=== PATIENT | female | born 1980 | race Caucasian/White ===

== ENCOUNTER 2021-08-30 14:23 | Outpatient (REF) | payer MEDICAID, SELFPAY ==
--- NOTE | ~2021-08-30 | FL_ITS ---
EXAMINATION: XR BARIUM SWALLOW CLINICAL INFORMATION: Iron deficiency. COMPARISON: None TECHNIQUE: Fluoroscopic guidance was provided for modified barium swallow performed by the speech and hearing department. FINDINGS: There is question of trace aspiration with thin liquid barium. This could not be reproduced. No aspiration or penetration was seen with any other media. FLUOROSCOPY TIME: 2.9 minutes DAP: 2.5 Gy-m2 (microgray-meter squared) FL/FL barium swallow modified IMPRESSION: Question trace aspiration with thin liquid barium. This could not be reproduced. No aspiration or penetration seen with any other media.
--- NOTE | 2021-09-01 09:23 | MHC.SL.IMP ---
Date of Plan of Treatment: 08/30/21 Onset of Symptoms/Illness: 07/07/21 Date Treatment Started: 08/30/21 Admitting Diagnosis: 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 Anxiety disorder Major depressive disorder Spastic hemiplegia affecting right dominant side Opioid use Cocaine abuse Presence of other vascular implants and grafts Constipation Insomnia Nausea Zygomatic fracture, left side Fracture of other specified skull and facial bones Dysphagia, oropharyngeal phase Dysarthria and anarthria Iron deficiency anemia Vitamin B deficiency Vitamin D deficiency Epidural hemorrhage Personal hx of COVID19 Retention of urine Contracture right hand Primary osteoarthritis, right shoulder Primary Speech & Language Diagnosis: R13.12 Oropharyngeal Phase Dysphagia Reason for Today's Visit: 81925 Modified Barium Swallow Study Pre-evaluation Dietary Consistencies: Regular Pre-evaluation Liquid Consistency: Honey Thick Pre-evaluation Medication Administration: N/A Medical History: Comments: Modified Barium Swallow Study Fluoroscopic Evaluation of Swallowing Function CPT Code 20071 Evaluation Year: 2021 Reason for Study: History of aspiration Referring Physician: Javi Shay DO Evaluating Clinician: Amelie Morales MA, CCC-HOSPITALITY AIDE Study Number: 1 Patient Name: Ana Whitley Status: Outpatient, Wheelchair Age: 40 Gender: Female MEDICAL HISTORY: Year of Onset or Diagnosis: 2021 Comorbidities: 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 Anxiety disorder Major depressive disorder Spastic hemiplegia affecting right dominant side Opioid use Cocaine abuse Presence of other vascular implants and grafts Constipation Insomnia Nausea Zygomatic fracture, left side Fracture of other specified skull and facial bones Dysphagia, oropharyngeal phase Dysarthria and anarthria Iron deficiency anemia Vitamin B deficiency Vitamin D deficiency Epidural hemorrhage Personal hx of COVID19 Retention of urine Contracture right hand Primary osteoarthritis, right shoulder Current (pre-evaluation) Intake/Diet: Route: PO Diet Grade: ?SOFT AND BITE SIZED (SB6)? Liquid Consistencies: ?MODERATELY THICK (MO3) CONSISTENCY? Pre-Study Functional Oral Intake Scale (FOIS): 5- Total oral intake of multiple consistencies requiring special preparation Pain: None reported at time of study Oral Motor Exam Mouth Occlusion: Normal Oral-Facial Teeth Characteristics: Intact/Normal Tongue Size: Normal Is patient able to manage secretions?: Yes Food and Liquid Trials: Oral Impairment: Lip Closure: 1=Interlabial escape; no progression to anterior tip Oral Impairment: Tongue Control During Bolus Hold: 2=Posterior escape of less than half of bolus Oral Impairment: Bolus Preparation/Mastication: 2=Disorganized chewing/mashing with solid pieces of bolus Oral Impairment: Bolus Transport/Lingual Motion: 3=Repetitive/disorganized tongue motion Oral Impairment: Oral Residue: 2=Residue collection on oral structures Oral Impairment:Initiation of Pharyngeal Swallow: 1=Bolus head in valleculae Pharyngeal Impairment: Soft Palate Elevation: 0=No bolus between soft palate (SP)/pharyngeal wall (PW) Pharyngeal Impairment: Laryngeal Elevation: 1=Partial thyroid cartilage/arytenoids to epiglottic petiole movement Pharyngeal Impairment: Anterior Hyoid Excursion: 1=Partial anterior movement Pharyngeal Impairment: Epiglottic Movement: 0=Complete inversion Pharyngeal Impairment: Laryngeal Vestibular Closure:: 1=Incomplete: narrow column air/contrast in laryngeal vestibule Pharyngeal Impairment: Pharyngeal Stripping Wave: 1=Present: diminished Pharyngeal Impairment: Pharyngeal Contraction: Did not test Pharyngeal Impairment: Pharyngoesophageal Segment Openin=Complete distension and complete duration: no obstruction of flow Pharyngeal Impairment: Tongue Base (TB) Retraction: 2=Narrow column of contrast/air between TB and posterior PW Pharyngeal Impairment: Pharyngeal Residue: 2=Collection of residue within or on pharyngeal structures Pharyngeal Impairment: Esophageal Clearance Upright Position: Did not test Impressions and Recommendations Clinical Observations: OBJECTIVE: Time-out: performed at 03:15 Evaluation Start: 03:00; Stop: 03:05 Patient Positioning: Seated 70-90 degrees Viewing Planes: LATERAL ONLY Contrast: MBSImP? Standardized Protocol using commercially prepared, standardized Barium viscosities, including: Varibar? THIN LIQUID (40% w/v, <15 cps) , Varibar? NECTAR (40% w/v, <150-450 cps) , Varibar? THIN HONEY (40% w/v, <800-1800 cps) , 1/2 Shortbread Cookie (1 x1 x.25 ) MBSImP ID: [id number] MBSImP Results: Lip closure for intraoral bolus containment resulted in interlabial escape, without progression to the anterior lip. Tongue control during bolus hold resulted in posterior escape of less than half of the bolus. Bolus preparation and mastication demonstrated disorganized chewing/mashing with solid pieces of the bolus unchewed. Bolus transport/lingual motion was with repetitive/disorganized motion of the tongue. Oral residue was a collection on oral structures. Initiation of the pharyngeal swallow occurred when the bolus head was in the valleculae. Soft palate elevation resulted in no bolus between the soft palate and the pharyngeal wall. Laryngeal elevation was decreased, with partial superior movement of the thyroid cartilage/partial approximation of the arytenoids to the epiglottic petiole. Anterior hyoid excursion demonstrated partial anterior movement. Epiglottic movement resulted in complete inversion. Laryngeal vestibular closure was incomplete, with a narrow column of air/contrast noted within the laryngeal vestibule at the height of the swallow. Pharyngeal stripping wave was present, but diminished. Pharyngeal contraction could not be determined due to logistical reasons not related to physiologic impairment. Pharyngoesophageal segment opening was completely distended for complete duration with no obstruction of bolus flow. Tongue base retraction allowed a narrow column of contrast or air between the retracted tongue base and the posterior pharyngeal wall. Pharyngeal residue was a collection of residue within or on pharyngeal structures. Esophageal clearance in the upright position could not be assessed due to logistical reasons not related to physiologic impairment. Oral Impairment Score: 10 Pharyngeal Impairment Score: 8 (absence of score, component 13) Esophageal Impairment Score: --- (absence of score, component 17) Laryngeal Penetration and Aspiration: Aspiration was observed in today's study. Incomplete laryngeal vestibular closure with noted aspiration of trace amount thin liquid during the swallow, question of aspiration with nectar thick, contrast coating the airway anteriorly. Contast passed below the vocal folds, and no effort was made to eject. ASSESSMENT: Clinician Assessment: This exam was conducted by a multidisciplinary team, which included a speech pathologist, radiologist, and electronic systems technician. Patient was seated upright in a chair for lateral view only. Patient trialed the following liquid and solid consistencies: thin liquid barium, nectar thick liquid barium, honey thick liquid barium, pureed solid (mixture applesauce with barium paste), ground solid (mixture chicken salad with barium paste), regular solid (Eugenia Doone cookie coated with barium paste). Moderately delayed and discoordinated oral phase. Noted interlabial escape of bolus with no progression anteriorly. Posterior escape of bolus as well. Contrast collected on tongue base and in the valleculae prior to initiation of the pharyngeal swallow. Slow prolonged chewing of ground solid. When given solid cookie, patient broke up the small piece given to her, spitting out the other half. Note disorganized anterior chewing pattern. Piece meal deglutition, as patient chewed bolus, swallowed partial bolus, chewed remaining bolus, and swallowed again. Patient swallowed up to 4 times per bite to clear oral cavity. Repetitive lingual motion, characterized by slow tongue pumping movements to transport bolus posteriorly. Mild to moderate oral residue on tongue and hard palate. Multiple swallow strategy reduced residue in oral cavity. Also note patient?s maladaptive forward leaning posture when patient appeared to exert increased effort swallowing. No nasopharyngeal reflux. Laryngeal elevation was incomplete, with partial anterior hyoid excursion. Incomplete laryngeal vestibular closure with noted aspiration of trace amount thin liquid during the swallow, question of aspiration with nectar thick, contrast coating the airway anteriorly. Mild pharyngeal residue on tongue base and in the valleculae, which effectively cleared with subsequent dry swallow. No obstruction of flow through pharyngoesophageal segment opening. The following compensatory strategies have been used in therapy as well as in today's study and improved swallowing function: Honey-thick Liquid eliminated Aspiration Patient history with the following compensatory strategies is unknown. When employed during today's study, these strategies improved swallowing function: Additional Swallow(s) per Bolus decreased Oral Residue, Pharyngeal Residue Liquid Intake Recommendation: Honey Thick Liquid Intake Strategies: Small Sips, No Straws Dietary Recommendations: Chopped/Advanced (NDD3) Medication Administration: Crushed with Puree Please contact the pharmacy regarding appropriate crushable or liquid drug formulations that are available whenever modified delivery is recommended. Compensatory Strategies Recommended: Sitting Upright (90 deg) Double Swallow No Straw Small Bites and Sips Alternate Liquids/Solids Rate of Ingestion Change Avoid Specific Foods Supervision during eating and or drinking: Total Supervision (1:1) Recommended Treatments: Compens. Strategy Educat. Recommendation for Speech Therapy: Outpatient Speech Therapy Text Comment: PLAN: Intake Recommendations: Route: PO Diet Grade: Chopped/Advanced (NDD3) Liquid Consistencies: Honey Post-Study Functional Oral Intake Scale (FOIS): 5- Total oral intake of multiple consistencies requiring special preparation Recommend CHOPPED/ADVANCED (NDD3) solids with sauces/gravies and HONEY THICK liquids, pills CRUSHED in PUREE. Patient requires total supervision during meals to monitor tolerance, to provide assistance with tray set up and throughout meals as needed; and to provide cues for aspiration precautions: -Ensure small bites -Reminders as needed to take one bite at a time, clearing oral cavity before taking more bites -Chew food well -Moisten food with sauce/gravy as needed -Avoid dry, tough, sticky foods -Alternate bite of food with sip of liquid -Take individual sips -Avoid the use of straws -Upright 90 degree position -Oral care ideally before and after meals, 4 times daily at the least Suggested Referrals: The patient might benefit from a referral to: Nutrition Services Indication for Referral: D/t risk of dehydration when consuming moderately thick liquids, patient may consider Artis Free Water Protocol. Therapy Recommendations: Therapy will be continued Prognosis for Improvement: The prognosis for the patient to meet nutritional needs by mouth is fair based on degree of impairment. Group Home Goals: ? The patient will tolerate the least restrictive diet with a safe/efficient swallow to maintain adequate nutrition and hydration. ? The patient will demonstrate improved swallowing function via repeat clinical evaluation, videoendoscopy/videofluoroscopy and/or patient self-rating scores. ? The patient and/or family will participate in further education for swallowing goals. Short Term Goals: ? Diet - The patient will participate in therapeutic PO trials with the HOSPITALITY AIDE. ? Guidelines - The patient will comply with/recall the following guidelines/strategies 80% of the time with moderate cuing: Honey-thick Liquid, Bolus Volume Change, Rate of Ingestion Change, Additional Swallow(s) per Bolus. ? Education - The patient, family, caregiver will verbalize/demonstrate understanding of the results of this evaluation, the above recommendations, and the swallowing guidelines. Clinician - Supplemental, Miscellaneous Communication: It is important to note MBSS objective studies are snapshots in time and Patient function might vary with factors such as time of day or concomitant medical conditions. For this reason, the final treatment plan for this patient should rest with their medical care team. Additional recommendations should be considered with the totality of the Patient in mind. Thank for the opportunity to participate in the care of this patient. If you have any questions about the content of this report, please contact the [facility] at [facility]. Education: Education regarding findings from today's study and plans for therapy were provided to Patient and family/caregiver through Verbal Instruction, Written Instruction. Understanding was expressed by the Patient and family/caregiver. Cement Storage Worker Clinician/Clinical Fellow: No Supervisory Statement: N/A Speech Language Pathologist: Amelie Morales M.A., [facility]-HOSPITALITY AIDE
== END 2021-08-30 14:24 | disposition home or self-care (01) ==
LOC: HO.XRAY 14:23
PROVIDERS: Visit Provider Hospitalist
DX: R13.12 Dysphagia, oropharyngeal phase (principal); D50.9 Iron deficiency anemia, unspecified
CPT/HCPCS: 74230; 92611

== ENCOUNTER 2021-10-09 11:29 | Emergency (ER) | payer MEDICAID, SELFPAY ==
--- NOTE | ~2021-10-09 | CT_ITS ---
EXAMINATION: CT CHEST WITHOUT CONTRAST CLINICAL INFORMATION: Diffuse rhonchi. Shortness of breath. COMPARISON: Previous chest x-ray most recent from earlier the same day and chest CTA March 2021 TECHNIQUE: Multidetector volumetric CT imaging of the chest was done. Axial MIP volume rendering provided. Sagittal and coronal reformatted images were obtained. This CT examination was performed using dose optimization techniques as appropriate, variously including the following: *Automated exposure control *Adjustment of mA and/or kV according to patient size (this includes techniques or standardized protocols for targeted exams where dose is matched to indication/reason for exam; i.e. extremities or head) *Use of iterative reconstruction technique DLP: 270 mGy-cm FINDINGS: LUNGS: There are clustered peribronchial nodules seen in the right lower lobe at the right lung base suggestive of tree-in-bud appearance or airways disease. There is a 4 mm left lower lobe nodule axial image 35 series 4. This is new from previous chest CT from March 2021. There is a bilateral lower lobe dependent subsegmental atelectasis. The lungs are otherwise clear. MEDIASTINUM: The mediastinum is normal. PLEURA: There is no pleural effusion. No pleural mass or thickening. AXILLA: No lymphadenopathy. UPPER ABDOMEN: There is a 6 cm cyst in the upper pole of the left kidney. The top of the IVC filter is visualized. OSSEOUS STRUCTURES: Unremarkable. CT/CT chest wo con IMPRESSION: Mild airways disease in the right lower lobe. Dependent atelectasis at the lung bases. 4 mm left lower lobe nodule. This is new in the interval from 2020 exam. Fleischner guidelines were followed.
--- NOTE | ~2021-10-09 | XR_ITS ---
EXAMINATION: XR CHEST CLINICAL INFORMATION: Shortness of breath COMPARISON: Previous chest x-ray June 2021 from [facility] TECHNIQUE: Frontal view of the chest was obtained. FINDINGS: The cardiac and mediastinal contours are normal. The lungs are clear. There is no pleural effusion or pneumothorax. Bony structures are unremarkable. There is an IVC filter. XR/XR chest 1V IMPRESSION: No evidence for acute disease in the chest.
--- NOTE | 2021-10-09 11:52 | ECG_ITS ---
Test Reason : ANXIETY/SOB Blood Pressure : / mmHG Vent. Rate : 084 BPM Atrial Rate : 084 BPM P-R Int : 152 ms QRS Dur : 074 ms QT Int : 364 ms P-R-T Axes : 050 046 055 degrees QTc Int : 430 ms Sinus rhythm with occasional Premature ventricular complexes Otherwise normal ECG No previous ECGs available Referred By: Alva Conde Electronically Signed By:MO ATKINSON
--- NOTE | 2021-10-09 12:07 | ED.SOB ---
HPI - SOB/Dyspnea General Chief Complaint: Upper Respiratory Symptoms Stated Complaint: anxiety/sob Time Seen by Provider: 10/09/21 11:41 Source: patient and EMS Mode of arrival: EMS History of Present Illness HPI Narrative: 40-year-old female with a past medical history of traumatic subdural hemorrhage, anxiety, depression, spastic hemiplegia, dysphagia, dysarthria/anarthria, vitamin-B/D deficiency, urinary retention, presenting to ED via EMS from [facility] for reported SOB satting 84-89% on RA and increased anxiety. Patient reports increased anxiety and SOB. Remaining history limited due to patient's dysarthria MD elicited complaint: shortness of breath Related Data Home Medications Medication Instructions Recorded Confirmed acetaminophen 325 mg tablet 650 mg PO Q6H PRN Fever 10/09/21 10/09/21 albuterol sulfate 3 ml inhalation Q12H PRN Shortness 10/09/21 10/09/21 Of Breath amitriptyline 10 mg tablet 2 tab PO BEDTIME 10/09/21 10/09/21 atorvastatin 10 mg tablet 1 tab PO DAILY 10/09/21 10/09/21 baclofen 5 mg tablet 1 tab PO TID 10/09/21 10/09/21 bisacodyl 10 mg rectal suppository [address] DAILY PRN Constipation 10/09/21 10/09/21 chlorhexidine gluconate 0.12 % 15 ml PO MOWEFR 10/09/21 10/09/21 mouthwash cholecalciferol (vitamin D3) 50 50 mcg PO DAILY 10/09/21 10/09/21 mcg (2,000 unit) tablet diazepam 2 mg tablet 0.5 tab PO BID PRN Anxiety 10/09/21 10/09/21 folic acid 1 mg tablet 1 mg PO DAILY 10/09/21 10/09/21 gabapentin 400 mg capsule 2 cap PO TID 10/09/21 10/09/21 lorazepam 1 mg tablet 1 tab PO BID PRN Anxiety 10/09/21 10/09/21 multivitamin 1 tab PO DAILY 10/09/21 10/09/21 oxycodone 5 mg tablet 1 tab PO BID PRN Pain 10/09/21 10/09/21 polyethylene glycol 3350 17 17 g PO BID 10/09/21 10/09/21 gram/dose oral powder (Miralax) quetiapine 100 mg tablet 1 tab PO BEDTIME 10/09/21 10/09/21 quetiapine 50 mg tablet 1 tab PO BEDTIME 10/09/21 10/09/21 sennosides 8.6 mg tablet (senna) 8.6 mg PO DAILY PRN Constipation 10/09/21 10/09/21 sennosides 8.6 mg-docusate sodium 2 tab-cap PO BID 10/09/21 10/09/21 50 mg tablet thiamine HCl (vitamin B1) 100 mg 100 mg PO DAILY 10/09/21 10/09/21 tablet Previous Rx's Medication Instructions Recorded amoxicillin 875 mg-potassium 1 tab PO BID 7 days #14 tabs 10/09/21 clavulanate 125 mg tablet Allergies Allergy/AdvReac Type Severity Reaction Status Date / Time diphenhydramine Allergy Unknown Unknown Verified 10/09/21 11:51 [From Benadryl] NSAIDS (Non-Steroidal Allergy Unknown Verified 10/09/21 11:51 Anti-Inflamma Review of Systems Review of Systems: Cardiovascular: No Chest Pain, + SOB Respiratory: + Cough, No Sputum, +Dyspnea Psych: + Anxiety/Panic Remaining ROS limited secondary to patient's baseline dysarthria Yes all other systems are reviewed and are negative PMFSH Past Medical History Attestation statement: The following information was validated with the patient. Social History Social History Alcohol intake: former Patient Tobacco Use Status: Never used Tobacco Advance Directives: No Advance Directives Information Provided: No Physical Exam Vital Signs: Vital Signs: Last Vital Signs Temp 98.2 F 10/09/21 15:58 Pulse 66 10/09/21 15:58 Resp 18 10/09/21 15:58 BP 152/93 H 10/09/21 15:58 Pulse Ox 95 10/09/21 15:58 O2 Del Method 10/09/21 15:58 BMI result Body Mass Index 24.2 Const: General: no acute distress, alert, awake and anxious Limitations: no limitations HEENT: Head: Yes normal to inspection and Yes atraumatic Ears: hearing grossly normal bilaterally General nose exam: Normal external nose present Face and sinus: Yes normal facial exam Eyes: General: appearance normal, both eyes and all related structures EOM: EOMs intact bilaterally Neck: Neck: Yes normal visual inspection and Yes no meningeal signs Resp: Effort & Inspection: normal respiratory effort and no respiratory distress Auscultation: rhonchi throughout Cardio: Rate: regular rate Heart sounds: S1 normal heart sound present and S2 normal heart sound present GI: Inspection: Yes normal to inspection Palpation (GI): Soft to palpation, nontender, no guarding and not rigid : General: Yes no CVA tenderness Back/Spine/Pelvis: Back: no CVA tenderness Skin: Wounds: no wounds Neuro: General: tone normal and no meningeal signs Extrem: General: Yes normal to inspection Course Course Course Narrative: Patient refused DuoNeb XR chest 1V IMPRESSION: No evidence for acute disease in the chest. > will obtain CT chest for further evaluation -labs unremarkable CT chest wo con MPRESSION: Mild airways disease in the right lower lobe. Dependent atelectasis at the lung bases. 4 mm left lower lobe nodule. This is new in the interval from 2020 exam.? -patient requesting her home dose of oxycodone > this was ordered then patient refused and stated she cannot take p.o. medication. > spoke with Dr. Shay as knows patient well from [facility], patient does take p.o. medications daily at facility. Will give patient dose of IV Zosyn prior to discharge & after discussion will discharge back on Augmentin MDM - SOB/Dyspnea MDM Narrative Medical decision making narrative: 40-year-old female with a past medical history of traumatic subdural hemorrhage, anxiety, depression, spastic hemiplegia, dysphagia, dysarthria/anarthria, vitamin-B/D deficiency, urinary retention, presenting to ED via EMS from [facility] for reported SOB satting 84-89% on RA and increased anxiety. On exam satting 98% on RA, lungs with diffuse rhonchi/coarse lung sounds, no pedal edema, patient anxious during evaluation/tearful. Concern for aspiration pneumonia vs viral illness vs anxiety reaction. Unlikely ACS/PE Low concern for severe sepsis at this time Plan: EKG, labs, CXR, COVID 19/influenza testing, DuoNeb, re-evaluate Medical Records Attestation: I reviewed the patient's medical records. Lab Data Attestation: I reviewed the patient's lab results. Result diagrams: 10/09/21 13:32 10/09/21 13:32 Labs: Lab Results 10/09/21 10/09/21 10/09/21 Range/Units 13:32 13:32 13:32 WBC 7.4 (4.8-10.8) X10*3/uL RBC 4.06 L (4.20-5.50) X10*6/uL Hgb 12.4 (12.0-16.0) g/dl Hct 37.3 (37.0-47.0) % MCV 91.9 (80.0-98.0) fL MCH 30.5 (27.0-33.0) pg MCHC 33.2 (31.0-35.0) g/dl RDW 11.9 (11.0-16.0) % Plt Count 295 (160-400) X10*3/uL MPV 9.5 (9.4-12.3) fL Immature Gran % (Auto) 0.1 (0.0-0.4) % Neut % (Auto) 59.3 (45-73) % Lymph % (Auto) 31.5 (20-40) % [place] % (Auto) 6.5 (2-11) % Eos % (Auto) 2.2 (0-4) % Baso % (Auto) 0.4 (0-2) % Lymph # (Auto) 2.3 (1.2-4.9) X10*3/uL [place] # (Auto) 0.5 (0.1-1.2) X10*3/uL Eos # (Auto) 0.2 (0.0-0.4) X10*3/uL Baso # (Auto) 0.0 (0.0-0.2) X10*3/uL Abs Immat Gran (auto) 0.01 (0.00-0.03) X10*3/uL Absolute Neuts (auto) 4.4 (2.0-8.3) x10*3/uL Absolute Nucleated RBC 0.000 (0.0-0.012) X10*3/uL Nucleated RBC % (auto) 0.0 (0.0-0.2) /100WBC Sodium 138 (135-145) mmol/L Potassium 4.1 (3.3-5.1) mmol/L Chloride 106 (96-108) mmol/L Carbon Dioxide 24 (22-29) mmol/L Anion Gap 12 (12-20) BUN 10 (9-16) mg/dL Creatinine 0.63 (0.5-1.4) mg/dL Estim Creat Clear Calc 98.2 Estimated GFR > 60 Random Glucose 89 (60-115) mg/dL Lactic Acid 1.0 (0.5-2.0) mmol/L Calcium 8.9 (8.4-10.2) mg/dL Magnesium 2.0 (1.6-2.6) mg/dL Total Bilirubin 1.3 H (0.0-1.0) mg/dL Direct Bilirubin 0.4 (0.0-0.5) mg/dL AST 12 (5-31) U/L ALT 13 (0-31) U/L Alkaline Phosphatase 80 (39-117) U/L Troponin I High Sens (<3.5-17.0) ng/L B-Natriuretic Peptide (<100) pg/mL Total Protein 7.1 (6.5-8.0) g/dL Albumin 4.1 (3.5-5.0) g/dL COVID-19 (NADIRA) (Negative) COVID-19 Clin Com Influenza Type A (OLIVIA) (Negative) Influenza Type B (OLIVIA) (Negative) Influenza A & B Note 10/09/21 10/09/21 10/09/21 Range/Units 13:32 13:32 15:21 WBC (4.8-10.8) X10*3/uL RBC (4.20-5.50) X10*6/uL Hgb (12.0-16.0) g/dl Hct (37.0-47.0) % MCV (80.0-98.0) fL MCH (27.0-33.0) pg MCHC (31.0-35.0) g/dl RDW (11.0-16.0) % Plt Count (160-400) X10*3/uL MPV (9.4-12.3) fL Immature Gran % (Auto) (0.0-0.4) % Neut % (Auto) (45-73) % Lymph % (Auto) (20-40) % [place] % (Auto) (2-11) % Eos % (Auto) (0-4) % Baso % (Auto) (0-2) % Lymph # (Auto) (1.2-4.9) X10*3/uL [place] # (Auto) (0.1-1.2) X10*3/uL Eos # (Auto) (0.0-0.4) X10*3/uL Baso # (Auto) (0.0-0.2) X10*3/uL Abs Immat Gran (auto) (0.00-0.03) X10*3/uL Absolute Neuts (auto) (2.0-8.3) x10*3/uL Absolute Nucleated RBC (0.0-0.012) X10*3/uL Nucleated RBC % (auto) (0.0-0.2) /100WBC Sodium (135-145) mmol/L Potassium (3.3-5.1) mmol/L Chloride (96-108) mmol/L Carbon Dioxide (22-29) mmol/L Anion Gap (12-20) BUN (9-16) mg/dL Creatinine (0.5-1.4) mg/dL Estim Creat Clear Calc Estimated GFR Random Glucose (60-115) mg/dL Lactic Acid (0.5-2.0) mmol/L Calcium (8.4-10.2) mg/dL Magnesium (1.6-2.6) mg/dL Total Bilirubin (0.0-1.0) mg/dL Direct Bilirubin (0.0-0.5) mg/dL AST (5-31) U/L ALT (0-31) U/L Alkaline Phosphatase (39-117) U/L Troponin I High Sens < 3.5 (<3.5-17.0) ng/L B-Natriuretic Peptide < 10 (<100) pg/mL Total Protein (6.5-8.0) g/dL Albumin (3.5-5.0) g/dL COVID-19 (NADIRA) (Negative) COVID-19 Clin Com Influenza Type A (OLIVIA) Negative (Negative) Influenza Type B (OLIVIA) Negative (Negative) Influenza A & B Note See Note 10/09/21 Range/Units 15:22 WBC (4.8-10.8) X10*3/uL RBC (4.20-5.50) X10*6/uL Hgb (12.0-16.0) g/dl Hct (37.0-47.0) % MCV (80.0-98.0) fL MCH (27.0-33.0) pg MCHC (31.0-35.0) g/dl RDW (11.0-16.0) % Plt Count (160-400) X10*3/uL MPV (9.4-12.3) fL Immature Gran % (Auto) (0.0-0.4) % Neut % (Auto) (45-73) % Lymph % (Auto) (20-40) % [place] % (Auto) (2-11) % Eos % (Auto) (0-4) % Baso % (Auto) (0-2) % Lymph # (Auto) (1.2-4.9) X10*3/uL [place] # (Auto) (0.1-1.2) X10*3/uL Eos # (Auto) (0.0-0.4) X10*3/uL Baso # (Auto) (0.0-0.2) X10*3/uL Abs Immat Gran (auto) (0.00-0.03) X10*3/uL Absolute Neuts (auto) (2.0-8.3) x10*3/uL Absolute Nucleated RBC (0.0-0.012) X10*3/uL Nucleated RBC % (auto) (0.0-0.2) /100WBC Sodium (135-145) mmol/L Potassium (3.3-5.1) mmol/L Chloride (96-108) mmol/L Carbon Dioxide (22-29) mmol/L Anion Gap (12-20) BUN (9-16) mg/dL Creatinine (0.5-1.4) mg/dL Estim Creat Clear Calc Estimated GFR Random Glucose (60-115) mg/dL Lactic Acid (0.5-2.0) mmol/L Calcium (8.4-10.2) mg/dL Magnesium (1.6-2.6) mg/dL Total Bilirubin (0.0-1.0) mg/dL Direct Bilirubin (0.0-0.5) mg/dL AST (5-31) U/L ALT (0-31) U/L Alkaline Phosphatase (39-117) U/L Troponin I High Sens (<3.5-17.0) ng/L B-Natriuretic Peptide (<100) pg/mL Total Protein (6.5-8.0) g/dL Albumin (3.5-5.0) g/dL COVID-19 (NADIRA) Negative (Negative) COVID-19 Clin Com See Note Influenza Type A (OLIVIA) (Negative) Influenza Type B (OLIVIA) (Negative) Influenza A & B Note ECG Data Attestation: I personally reviewed and interpreted this ECG as follows: ECG interpretation date: 10/09/21 ECG interpretation time: 12:08 Interpretation: EKG sinus rhythm with PVC. Rate of 84. Pr interval 152. QTC 430. No STEMI/nonischemic Discharge Plan Discharge Clinical Impression: Aspiration pneumonia Patient Disposition: Xfer LTC Transfer Details: [facility] Instructions: Pneumonia (ED) Additional Instructions: Your blood work was reassuring today in the emergency department, your CT scan shows evidence of pneumonia and a right lower lobe. Augmentin is an antibiotic please take as prescribed. Your given 1st dose of IV Zosyn in the emergency department. Prescriptions: New amoxicillin-pot clavulanate 875-125 mg tablet 1 tab PO BID 7 Days Qty: 14 0RF No Action multivitamin Tablet 1 tab PO DAILY sennosides [senna] 8.6 mg Tablet 8.6 mg PO DAILY PRN (Reason: Constipation) acetaminophen 325 mg Tablet 650 mg PO Q6H PRN (Reason: Fever) albuterol sulfate 2.5 mg /3 mL (0.083 %) solution for nebulization 3 ml inhalation Q12H PRN (Reason: Shortness Of Breath) atorvastatin 10 mg tablet 1 tab PO DAILY sennosides-docusate sodium [DOK Plus] 8.6-50 mg Tablet 2 tab-cap PO BID gabapentin 400 mg capsule 2 cap PO TID thiamine HCl (vitamin B1) 100 mg Tablet 100 mg PO DAILY quetiapine 100 mg tablet 1 tab PO BEDTIME amitriptyline 10 mg tablet 2 tab PO BEDTIME diazepam 2 mg tablet 0.5 tab PO BID PRN (Reason: Anxiety) bisacodyl 10 mg Suppository [address] DAILY PRN (Reason: Constipation) folic acid 1 mg Tablet 1 mg PO DAILY lorazepam 1 mg tablet 1 tab PO BID PRN (Reason: Anxiety) polyethylene glycol 3350 [Miralax] 17 gram/dose Powder 17 g PO BID oxycodone 5 mg tablet 1 tab PO BID PRN (Reason: Pain) chlorhexidine gluconate 0.12 % mouthwash 15 ml PO MOWEFR quetiapine 50 mg tablet 1 tab PO BEDTIME cholecalciferol (vitamin D3) 50 mcg (2,000 unit) Tablet 50 mcg PO DAILY baclofen 5 mg tablet 1 tab PO TID Referrals: Javi Shay DO [Primary Care Provider] - 1 day
[2021-10-09 12:16] VITALS: BP 140/90; PULSE 100; O2SAT 96; BMI 24.2
[2021-10-09] MEDS: diazePAM 10 MG/2 ML CARTRIDGE 2.5 MG IVPUSH (12:59)
[2021-10-09 13:39] LABS: Basophils Percent Auto 0.4 % (0-2); Eosinophils Absolute Auto 0.2 X10*3/uL (0.0-0.4); Eosinophils Percent Auto 2.2 % (0-4); Hematocrit 37.3 % (37.0-47.0); Hemoglobin 12.4 g/dl (12.0-16.0); Imm Gran Abs Auto 0.01 X10*3/uL (0.00-0.03); Imm Gran Pct Auto 0.1 % (0.0-0.4); Lymphocytes Absolute Auto 2.3 X10*3/uL (1.2-4.9); Lymphocytes Percent Auto 31.5 % (20-40); MANUAL DIFF FLAG NO; Mean Corpuscular HGB Conc 33.2 g/dl (31.0-35.0); Mean Corpuscular Hemoglobin 30.5 pg (27.0-33.0); Mean Corpuscular Volume 91.9 fL (80.0-98.0); Mean Platelet Volume 9.5 fL (9.4-12.3); Monocytes Absolute Auto 0.5 X10*3/uL (0.1-1.2); Monocytes Percent Auto 6.5 % (2-11); Neutrophils Absolute Auto 4.4 x10*3/uL (2.0-8.3); Neutrophils Percent Auto 59.3 % (45-73); Platelet Count 295 X10*3/uL (160-400); Red Blood Count 4.06 X10*6/uL (4.20-5.50); Red Cell Distribution Width 11.9 % (11.0-16.0); White Blood Count 7.4 X10*3/uL (4.8-10.8)
[2021-10-09 13:59] LABS: Alanine Aminotransferase 13 U/L (0-31); Albumin Level 4.1 g/dL (3.5-5.0); Alkaline Phosphatase 80 U/L (39-117); Anion Gap 12 (12-20); Aspartate Amino Transferase 12 U/L (5-31); Bilirubin Direct 0.4 mg/dL (0.0-0.5); Bilirubin Total 1.3 mg/dL (0.0-1.0); Blood Urea Nitrogen 10 mg/dL (9-16); Calcium 8.9 mg/dL (8.4-10.2); Carbon Dioxide 24 mmol/L (22-29); Chloride 106 mmol/L (96-108); Creatinine Clr Calc Pharmacy 98.2; Estimated Glomerular Filt Rate > 60; Glucose Random 89 mg/dL (60-115); Potassium 4.1 mmol/L (3.3-5.1); Sodium 138 mmol/L (135-145); Total Protein 7.1 g/dL (6.5-8.0)
[2021-10-09 14:04] LABS: B Type Natriuretic Peptide < 10 pg/mL (<100)
[2021-10-09 14:05] LABS: Troponin-I High Sensitivity < 3.5 ng/L (<3.5-17.0)
--- NOTE | 2021-10-09 14:29 | PHA.MEDREC ---
Pharmacy Consult ? Medication Reconciliation Pharmacy has completed the medication reconciliation. List from [facility]
[2021-10-09 15:44] LABS: COVID-19 Test Negative (Negative); IDNOW Serial# 16C4AD1C
[2021-10-09 15:47] LABS: Influenza A Negative (Negative); Influenza B2 Negative (Negative)
[2021-10-09 15:58] VITALS: BP 152/93; PULSE 66; RESP 18; TEMP 36.8; O2SAT 95
[2021-10-09] MEDS: Morphine Sulfate 2 MG/ML CARTRIDGE 1 MG IVPUSH (17:06)
[2021-10-09] MEDS: Piperacillin Sodium/Tazobactam 4.5 GM in 0.9 % Sodium Chloride 100 ML IV (17:08)
[2021-10-09 19:20] VITALS: RESP 18
--- NOTE | 2021-10-09 21:11 | PC.NURSE ---
Attempted to call [facility], Unit unable to accept call. Awaiting return call.
== END 2021-10-09 20:58 ==
PROVIDERS: Physician Assistant; Emergency Provider Internal Medicine; PCP Hospitalist
DX: J69.0 Pneumonitis due to inhalation of food and vomit (principal); Z20.822 Contact with and (suspected) exposure to COVID-19; R06.02 Shortness of breath; F41.9 Anxiety disorder, unspecified; I69.822 Dysarthria following other cerebrovascular disease; G81.10 Spastic hemiplegia affecting unspecified side; I69.891 Dysphagia following other cerebrovascular disease; R13.10 Dysphagia, unspecified
CPT/HCPCS: 71045; 71250; 80048; 80076; 83605; 83735; 83880; 84484; 85025; 87040; 87502; 87635; 93005; 96365; 96375; 99284; J2270; J2543; J3360

== ENCOUNTER 2021-11-04 20:21 | Emergency (ER) | payer MEDICAID, SELFPAY ==
--- NOTE | ~2021-11-04 | XR_ITS ---
EXAMINATION: XR CHEST CLINICAL INFORMATION: SOB COMPARISON: Chest x-ray 10/09/2021. TECHNIQUE: Frontal view of the chest was obtained. FINDINGS: The lungs are somewhat expanded and clear. The heart size and pulmonary vascularity is normal. No gross bony abnormality seen. XR/XR chest 1V IMPRESSION: Unremarkable chest exam. No change from 10/09/2021.
[2021-11-04 20:28] VITALS: BP 123/77; PULSE 106; RESP 16; TEMP 36.5; O2SAT 95; BMI 22.2
--- NOTE | 2021-11-04 20:31 | ED.GENADULT ---
HPI - General Adult General Chief complaint: General Medical Stated complaint: hypotensive Time Seen by Provider: 11/04/21 20:31 Source: patient Mode of arrival: EMS Limitations: no limitations History of Present Illness HPI narrative: Patient 40 years old from longterm with history of TBI major depressive disorder spastic hemiplegia affecting the right side dysphagia dysarthria sent for low blood pressure of 70/59 heart rate of 104 was lethargic semi-responsive patient does have productive cough for last few days and decreased oral intake on arrival patient's blood pressure was 123/77 pulse rate 106 temperature 97.7 degrees saturating 95% on room patient received oxycodone Ativan dose prior to transfer Related Data Home Medications Medication Instructions Recorded Confirmed acetaminophen 325 mg tablet 650 mg PO Q6H PRN Fever 10/09/21 10/09/21 albuterol sulfate 3 ml inhalation Q12H PRN Shortness 10/09/21 10/09/21 Of Breath amitriptyline 10 mg tablet 2 tab PO BEDTIME 10/09/21 10/09/21 atorvastatin 10 mg tablet 1 tab PO DAILY 10/09/21 10/09/21 baclofen 5 mg tablet 1 tab PO TID 10/09/21 10/09/21 bisacodyl 10 mg rectal suppository 10 mg [place] DAILY PRN Constipation 10/09/21 10/09/21 chlorhexidine gluconate 0.12 % 15 ml PO MOWEFR 10/09/21 10/09/21 mouthwash cholecalciferol (vitamin D3) 50 50 mcg PO DAILY 10/09/21 10/09/21 mcg (2,000 unit) tablet diazepam 2 mg tablet 0.5 tab PO BID PRN Anxiety 10/09/21 10/09/21 folic acid 1 mg tablet 1 mg PO DAILY 10/09/21 10/09/21 gabapentin 400 mg capsule 2 cap PO TID 10/09/21 10/09/21 lorazepam 1 mg tablet 1 tab PO BID PRN Anxiety 10/09/21 10/09/21 multivitamin 1 tab PO DAILY 10/09/21 10/09/21 oxycodone 5 mg tablet 1 tab PO BID PRN Pain 10/09/21 10/09/21 polyethylene glycol 3350 17 17 g PO BID 10/09/21 10/09/21 gram/dose oral powder (Miralax) quetiapine 100 mg tablet 1 tab PO BEDTIME 10/09/21 10/09/21 quetiapine 50 mg tablet 1 tab PO BEDTIME 10/09/21 10/09/21 sennosides 8.6 mg tablet (senna) 8.6 mg PO DAILY PRN Constipation 10/09/21 10/09/21 sennosides 8.6 mg-docusate sodium 2 tab-cap PO BID 10/09/21 10/09/21 50 mg tablet thiamine HCl (vitamin B1) 100 mg 100 mg PO DAILY 10/09/21 10/09/21 tablet Previous Rx's Medication Instructions Recorded amoxicillin 875 mg-potassium 1 tab PO BID 7 days #14 tabs 10/09/21 clavulanate 125 mg tablet Allergies Allergy/AdvReac Type Severity Reaction Status Date / Time diphenhydramine Allergy Unknown Unknown Verified 10/09/21 11:51 [From Benadryl] NSAIDS (Non-Steroidal Allergy Unknown Verified 10/09/21 11:51 Anti-Inflamma Review of Systems Review of Systems: Yes Unobtainable due to mental status [facility] Past Medical History Medical History (Updated 11/05/21 @ 00:22 by Armando Benítez MD) Depression Dysarthria Right spastic hemiparesis TBI (traumatic brain injury) Social History Social History Alcohol intake: former Patient Tobacco Use Status: Never used Tobacco Advance Directives: No Advance Directives Information Provided: No Physical Exam ED Vital Signs: Vital Signs - 24 hr 11/04/21 20:28 11/04/21 22:07 Temperature 97.7 F 97.7 F Pulse Rate 106 H 101 H Respiratory Rate 16 16 Blood Pressure 123/77 122/83 Pulse Oximetry 95 95 Oxygen Delivery Method Room Air Room Air BMI result Body Mass Index 22.2 Medical Decision Making MDM Narrative Medical decision making narrative: 0 Patient with transient hypotension etiology not very clear white count slightly elevated will check UA blood pressure improved UA is negative patient blood pressure maintained while in the ER no source of infection seen patient will be discharged to longterm Lab Data Lab results reviewed: Yes I reviewed the patient's lab results. Result diagrams: 11/04/21 22:05 11/04/21 22:51 Labs: Lab Results 11/04/21 11/04/21 11/04/21 Range/Units 22:04 22:05 22:51 WBC 14.4 H (4.8-10.8) X10*3/uL RBC 5.01 D (4.20-5.50) X10*6/uL Hgb 14.9 D (12.0-16.0) g/dl Hct 46.2 D (37.0-47.0) % MCV 92.2 (80.0-98.0) fL MCH 29.7 (27.0-33.0) pg MCHC 32.3 (31.0-35.0) g/dl RDW 12.4 (11.0-16.0) % Plt Count 251 (160-400) X10*3/uL MPV 9.8 (9.4-12.3) fL Immature Gran % (Auto) 0.4 (0.0-0.4) % Neut % (Auto) 81.0 H (45-73) % Lymph % (Auto) 11.8 L (20-40) % [place] % (Auto) 5.2 (2-11) % Eos % (Auto) 1.3 (0-4) % Baso % (Auto) 0.3 (0-2) % Lymph # (Auto) 1.7 (1.2-4.9) X10*3/uL [place] # (Auto) 0.8 (0.1-1.2) X10*3/uL Eos # (Auto) 0.2 (0.0-0.4) X10*3/uL Baso # (Auto) 0.1 (0.0-0.2) X10*3/uL Abs Immat Gran (auto) 0.06 H (0.00-0.03) X10*3/uL Absolute Neuts (auto) 11.6 H (2.0-8.3) x10*3/uL Absolute Nucleated RBC 0.000 (0.0-0.012) X10*3/uL Nucleated RBC % (auto) 0.0 (0.0-0.2) /100WBC Sodium 138 (135-145) mmol/L Potassium 4.4 (3.3-5.1) mmol/L Chloride 108 (96-108) mmol/L Carbon Dioxide 22 (22-29) mmol/L Anion Gap 12 (12-20) BUN 13 (9-16) mg/dL Creatinine 0.68 (0.5-1.4) mg/dL Estim Creat Clear Calc 102.9 Estimated GFR > 60 Random Glucose 142 H (60-115) mg/dL Lactic Acid (0.5-2.0) mmol/L Calcium 8.6 (8.4-10.2) mg/dL Total Bilirubin 1.0 (0.0-1.0) mg/dL AST 27 D (5-31) U/L ALT 35 H (0-31) U/L Alkaline Phosphatase 70 (39-117) U/L Troponin I High Sens (<3.5-17.0) ng/L Total Protein 6.7 (6.5-8.0) g/dL Albumin 3.9 (3.5-5.0) g/dL Urine Color Urine Appearance Urine pH (5.0-8.0) Ur Specific [place]ine (1.005-1.025) Urine Protein (NEG-TRACE) MG/DL Urine Glucose (UA) (NEG) MG/DL Urine Ketones (NEG) MG/DL Urine Blood (NEG) Urine Nitrite (NEG) Ur Leukocyte Esterase (NEG) COVID-19 (NADIRA) Negative (Negative) COVID-19 Clin Com See Note 11/04/21 11/04/21 11/04/21 Range/Units 22:51 22:51 23:45 WBC (4.8-10.8) X10*3/uL RBC (4.20-5.50) X10*6/uL Hgb (12.0-16.0) g/dl Hct (37.0-47.0) % MCV (80.0-98.0) fL MCH (27.0-33.0) pg MCHC (31.0-35.0) g/dl RDW (11.0-16.0) % Plt Count (160-400) X10*3/uL MPV (9.4-12.3) fL Immature Gran % (Auto) (0.0-0.4) % Neut % (Auto) (45-73) % Lymph % (Auto) (20-40) % [place] % (Auto) (2-11) % Eos % (Auto) (0-4) % Baso % (Auto) (0-2) % Lymph # (Auto) (1.2-4.9) X10*3/uL [place] # (Auto) (0.1-1.2) X10*3/uL Eos # (Auto) (0.0-0.4) X10*3/uL Baso # (Auto) (0.0-0.2) X10*3/uL Abs Immat Gran (auto) (0.00-0.03) X10*3/uL Absolute Neuts (auto) (2.0-8.3) x10*3/uL Absolute Nucleated RBC (0.0-0.012) X10*3/uL Nucleated RBC % (auto) (0.0-0.2) /100WBC Sodium (135-145) mmol/L Potassium (3.3-5.1) mmol/L Chloride (96-108) mmol/L Carbon Dioxide (22-29) mmol/L Anion Gap (12-20) BUN (9-16) mg/dL Creatinine (0.5-1.4) mg/dL Estim Creat Clear Calc Estimated GFR Random Glucose (60-115) mg/dL Lactic Acid 1.2 (0.5-2.0) mmol/L Calcium (8.4-10.2) mg/dL Total Bilirubin (0.0-1.0) mg/dL AST (5-31) U/L ALT (0-31) U/L Alkaline Phosphatase (39-117) U/L Troponin I High Sens < 3.5 (<3.5-17.0) ng/L Total Protein (6.5-8.0) g/dL Albumin (3.5-5.0) g/dL Urine Color DK YELLOW Urine Appearance CLEAR Urine pH 8.0 (5.0-8.0) Ur Specific [place] 1.015 (1.005-1.025) Urine Protein TRACE (NEG-TRACE) MG/DL Urine Glucose (UA) NEG (NEG) MG/DL Urine Ketones NEG (NEG) MG/DL Urine Blood NEG (NEG) Urine Nitrite NEG (NEG) Ur Leukocyte Esterase NEG (NEG) COVID-19 (NADIRA) (Negative) COVID-19 Clin Com ECG Data Attestation: I personally reviewed and interpreted this ECG as follows: Interpretation: Number sinus rhythm heart rate sitting 97 beats per minute no interval normal axis no acute ST-T changes Discharge Plan Discharge Clinical Impression: Medication side effect Patient Disposition: [facility] Instructions: Adverse Drug Reaction (ED) Additional Instructions: Patient had transient hypotension secondary to medication likely In the ED workup essentially negative although patient had slightly elevated white count but no source of infection could be found Blood cultures were drawn Keep patient hydrated,Tylenol for fever Report to ER if not better Prescriptions: No Action multivitamin Tablet 1 tab PO DAILY sennosides [senna] 8.6 mg Tablet 8.6 mg PO DAILY PRN (Reason: Constipation) acetaminophen 325 mg Tablet 650 mg PO Q6H PRN (Reason: Fever) albuterol sulfate 2.5 mg /3 mL (0.083 %) solution for nebulization 3 ml inhalation Q12H PRN (Reason: Shortness Of Breath) atorvastatin 10 mg tablet 1 tab PO DAILY sennosides-docusate sodium [DOK Plus] 8.6-50 mg Tablet 2 tab-cap PO BID gabapentin 400 mg capsule 2 cap PO TID thiamine HCl (vitamin B1) 100 mg Tablet 100 mg PO DAILY quetiapine 100 mg tablet 1 tab PO BEDTIME amitriptyline 10 mg tablet 2 tab PO BEDTIME diazepam 2 mg tablet 0.5 tab PO BID PRN (Reason: Anxiety) bisacodyl 10 mg Suppository 10 mg OH DAILY PRN (Reason: Constipation) folic acid 1 mg Tablet 1 mg PO DAILY lorazepam 1 mg tablet 1 tab PO BID PRN (Reason: Anxiety) polyethylene glycol 3350 [Miralax] 17 gram/dose Powder 17 g PO BID oxycodone 5 mg tablet 1 tab PO BID PRN (Reason: Pain) chlorhexidine gluconate 0.12 % mouthwash 15 ml PO MOWEFR quetiapine 50 mg tablet 1 tab PO BEDTIME cholecalciferol (vitamin D3) 50 mcg (2,000 unit) Tablet 50 mcg PO DAILY baclofen 5 mg tablet 1 tab PO TID amoxicillin-pot clavulanate 875-125 mg tablet 1 tab PO BID 7 Days Qty: 14 0RF
--- NOTE | 2021-11-04 20:50 | ECG_ITS ---
Test Reason : GENERAL MEDICAL Blood Pressure : / mmHG Vent. Rate : 097 BPM Atrial Rate : 097 BPM P-R Int : 148 ms QRS Dur : 076 ms QT Int : 358 ms P-R-T Axes : 049 052 066 degrees QTc Int : 454 ms Normal sinus rhythm Normal ECG When compared with ECG of 09-OCT-2021 12:08, Premature ventricular complexes are no longer Present Referred By: Armando Benítez Electronically Signed By:Amol Dykes
[2021-11-04 22:07] VITALS: BP 122/83; PULSE 101; RESP 16; TEMP 36.5; O2SAT 95
[2021-11-04 22:10] LABS: MANUAL DIFF FLAG NO
[2021-11-04 22:12] LABS: Basophils Absolute Auto 0.1 X10*3/uL (0.0-0.2); Basophils Percent Auto 0.3 % (0-2); Eosinophils Absolute Auto 0.2 X10*3/uL (0.0-0.4); Eosinophils Percent Auto 1.3 % (0-4); Hematocrit 46.2 % (37.0-47.0); Hemoglobin 14.9 g/dl (12.0-16.0); Imm Gran Abs Auto 0.06 X10*3/uL (0.00-0.03); Imm Gran Pct Auto 0.4 % (0.0-0.4); Lymphocytes Absolute Auto 1.7 X10*3/uL (1.2-4.9); Lymphocytes Percent Auto 11.8 % (20-40); Mean Corpuscular HGB Conc 32.3 g/dl (31.0-35.0); Mean Corpuscular Hemoglobin 29.7 pg (27.0-33.0); Mean Corpuscular Volume 92.2 fL (80.0-98.0); Mean Platelet Volume 9.8 fL (9.4-12.3); Monocytes Absolute Auto 0.8 X10*3/uL (0.1-1.2); Monocytes Percent Auto 5.2 % (2-11); Neutrophils Absolute Auto 11.6 x10*3/uL (2.0-8.3); Platelet Count 251 X10*3/uL (160-400); Red Blood Count 5.01 X10*6/uL (4.20-5.50); Red Cell Distribution Width 12.4 % (11.0-16.0); White Blood Count 14.4 X10*3/uL (4.8-10.8)
[2021-11-04 22:30] LABS: COVID-19 Test Negative (Negative)
[2021-11-04] MEDS: 0.9 % Sodium Chloride 1,000 ML 999 ML IV (23:01)
[2021-11-04 23:12] LABS: Lactic Acid 1.2 mmol/L (0.5-2.0)
[2021-11-04] MEDS: Morphine Sulfate 2 MG/ML CARTRIDGE IVPUSH (23:28)
[2021-11-04 23:42] LABS: Alanine Aminotransferase 35 U/L (0-31); Albumin Level 3.9 g/dL (3.5-5.0); Alkaline Phosphatase 70 U/L (39-117); Anion Gap 12 (12-20); Aspartate Amino Transferase 27 U/L (5-31); Blood Urea Nitrogen 13 mg/dL (9-16); Calcium 8.6 mg/dL (8.4-10.2); Carbon Dioxide 22 mmol/L (22-29); Chloride 108 mmol/L (96-108); Creatinine Clr Calc Pharmacy 102.9; Estimated Glomerular Filt Rate > 60; Glucose Random 142 mg/dL (60-115); Potassium 4.4 mmol/L (3.3-5.1); Sodium 138 mmol/L (135-145); Total Protein 6.7 g/dL (6.5-8.0); Troponin-I High Sensitivity < 3.5 ng/L (<3.5-17.0)
[2021-11-05 00:03] LABS: Appearance Urine CLEAR; Color Urine DK YELLOW; Glucose Urine UA NEG (NEG); Leukocyte Esterase Urine NEG (NEG); Nitrite Urine NEG (NEG); Specific Gravity - Urine 1.015 (1.005-1.025); Urine Blood NEG (NEG); Urine Ketones NEG (NEG); Urine Protein TRACE MG/DL (NEG-TRACE)
--- NOTE | 2021-11-05 01:08 | PC.NURSE ---
Addendum entered by Eugenie Uribe 11/05/21 01:16: [facility] called back @01:15 that are unable to pass the call and booked bls unit for 8am Original Note: This US Called [facility] @01:08 for bls unit to bring patient back to [facility] [place]. [facility] advised that they are going to call around to pass the call, if unable to pass the call they will book the transport for 8 am
--- NOTE | 2021-11-05 02:01 | PC.NURSE ---
pt requesting this RN help change her back into street clothes and out of hospital gown, this RN assists pt. pt stating she wants medication for anxiety, aware
[2021-11-05] MEDS: LORazepam 1 MG TABLET PO (02:27)
[2021-11-05 03:00] VITALS: BP 107/77; PULSE 88
--- NOTE | 2021-11-05 03:53 | PC.NURSE ---
pt informed several times by this RN that pt is waiting for ambulance ride at 8am back to [facility].
[2021-11-05 05:15] VITALS: BP 115/65; PULSE 98; RESP 20; O2SAT 95
--- NOTE | 2021-11-05 07:06 | PC.NURSE ---
Assumed care of this pt. and received report from Vanessa Navarro RN
[2021-11-05 07:59] VITALS: BP 113/66; PULSE 12; RESP 108; O2SAT 96
== END 2021-11-05 09:00 | disposition skilled nursing facility (03) ==
PROVIDERS: Emergency Provider Internal Medicine
DX: I95.9 Hypotension, unspecified (principal); F33.1 Major depressive disorder, recurrent, moderate; Z20.822 Contact with and (suspected) exposure to COVID-19; Z79.899 Other long term (current) drug therapy; Z87.820 Personal history of traumatic brain injury
CPT/HCPCS: 36415; 51702; 71045; 80053; 81003; 83605; 84484; 85025; 87040; 87635; 93005; 96361; 96374; 99284; J2270

== ENCOUNTER → 2021-12-20 13:52 | Outpatient (BNVA) | payer MEDICAID, SELFPAY | PROVIDERS: PCP Hospitalist; Visit Provider Internal Medicine | DX: R47.1 Dysarthria and anarthria (principal); R13.10 Dysphagia, unspecified; J45.909 Unspecified asthma, uncomplicated; G81.11 Spastic hemiplegia affecting right dominant side; S06.9X9A Unspecified intracranial injury with loss of consciousness of unspecified duration, initial encounter; X58.XXXA Exposure to other specified factors, initial encounter; Y93.9 Activity, unspecified; Y92.9 Unspecified place or not applicable; Y99.8 Other external cause status; K08.89 Other specified disorders of teeth and supporting structures; F17.210 Nicotine dependence, cigarettes, uncomplicated | CPT/HCPCS: 99202 ==

== ENCOUNTER 2022-02-05 16:11 | Emergency (ER) | payer MEDICAID, SELFPAY ==
[2022-02-05 16:29] VITALS: BP 132/80; BP 172/102; PULSE 92; RESP 18; TEMP 37.1; O2SAT 96; O2SAT 97; BMI 21.0
[2022-02-05 16:33] VITALS: BP 166/109; PULSE 93; O2SAT 99
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
[2022-02-05 17:35] LABS: MANUAL DIFF FLAG NO
[2022-02-05] MEDS: Morphine Sulfate 4 MG/ML CARTRIDGE IVPUSH ×2 (17:39→19:25)
[2022-02-05] MEDS: ondansetron HCL 4 MG/2 ML VIAL IVPUSH (17:39)
[2022-02-05 17:40] LABS: Basophils Absolute Auto 0.1 X10*3/uL (0.0-0.2); Basophils Percent Auto 0.5 % (0-2); Eosinophils Absolute Auto 0.1 X10*3/uL (0.0-0.4); Eosinophils Percent Auto 1.1 % (0-4); Hematocrit 38.8 % (37.0-47.0); Imm Gran Abs Auto 0.02 X10*3/uL (0.00-0.03); Imm Gran Pct Auto 0.2 % (0.0-0.4); Lymphocytes Absolute Auto 2.8 X10*3/uL (1.2-4.9); Lymphocytes Percent Auto 23.9 % (20-40); Mean Corpuscular HGB Conc 33.5 g/dl (31.0-35.0); Mean Corpuscular Hemoglobin 30.2 pg (27.0-33.0); Mean Corpuscular Volume 90.2 fL (80.0-98.0); Mean Platelet Volume 9.4 fL (9.4-12.3); Monocytes Absolute Auto 0.6 X10*3/uL (0.1-1.2); Monocytes Percent Auto 4.9 % (2-11); Neutrophils Absolute Auto 8.1 x10*3/uL (2.0-8.3); Neutrophils Percent Auto 69.4 % (45-73); Platelet Count 342 X10*3/uL (160-400); Red Cell Distribution Width 12.7 % (11.0-16.0); White Blood Count 11.7 X10*3/uL (4.8-10.8)
[2022-02-05] MEDS: 0.9 % Sodium Chloride 1,000 ML 999 ML IV (17:40)
[2022-02-05 18:16] VITALS: BP 153/104; PULSE 84; RESP 14; TEMP 37.2; O2SAT 98
[2022-02-05 18:40] LABS: Alanine Aminotransferase 8 U/L (0-31); Alkaline Phosphatase 51 U/L (39-117); Anion Gap 17 (12-20); Aspartate Amino Transferase 13 U/L (5-31); Bilirubin Total 0.5 mg/dL (0.0-1.0); Blood Urea Nitrogen 13 mg/dL (9-16); Calcium 8.6 mg/dL (8.4-10.2); Carbon Dioxide 15 mmol/L (22-29); Chloride 111 mmol/L (96-108); Creatinine Clr Calc Pharmacy 120.8; Estimated Glomerular Filt Rate > 60; Glucose Random 84 mg/dL (60-115); Sodium 139 mmol/L (135-145); Total Protein 6.7 g/dL (6.5-8.0)
[2022-02-05] MEDS: diazePAM 2 MG TABLET PO (18:52)
--- NOTE | 2022-02-05 19:27 | PC.NURSE ---
call out to [facility] @1920 for transport back to [facility]. [facility] has no ambulances avaiable to transfer patinent until the AM
[2022-02-05] MEDS: QUEtiapine Fumarate 100 MG TABLET PO (22:46)
[2022-02-05] MEDS: Amitriptyline HCl 10 MG TABLET 20 MG PO (22:47)
[2022-02-05] MEDS: Baclofen 10 MG TABLET 5 MG PO (22:47)
[2022-02-05] MEDS: Acetaminophen 325 MG TABLET 650 MG PO (22:47)
[2022-02-05] MEDS: QUEtiapine Fumarate 50 MG TABLET PO (22:48)
[2022-02-05] MEDS: Gabapentin 400 MG CAPSULE 800 MG PO (22:48)
--- NOTE | 2022-02-05 23:03 | PC.NURSE ---
pt a&ox3, medicated per provider order, pt reporting some increased pain w sling usage - removed temporarily. tech at bedside assisting pt to restroom via Britany Dsouza.
[2022-02-06] MEDS: oxyCODONE HCl Immed Release 5 MG TABLET PO (00:27)
[2022-02-06] MEDS: LORazepam 1 MG TABLET PO (00:27)
[2022-02-06 07:18] VITALS: BP 126/72; PULSE 79; RESP 14; TEMP 36.5; O2SAT 95
[2022-02-06] MEDS: Acetaminophen 325 MG TABLET 650 MG PO (07:23)
[2022-02-06 07:29] VITALS: BP 86/62; PULSE 75; RESP 14; TEMP 36.6; O2SAT 98
[2022-02-06 08:31] VITALS: BP 122/75; PULSE 68
[2022-02-06] MEDS: Folic Acid 1 MG TABLET PO (08:32)
[2022-02-06] MEDS: polyethylene glycoL 3350 17 GM POWD.PACK PO (08:32)
[2022-02-06] MEDS: Sennosides/Docusate Sodium TABLET 2 TAB PO (08:32)
[2022-02-06] MEDS: Multivitamin TABLET 1 TAB PO (08:32)
[2022-02-06] MEDS: Thiamine HCL 100 MG TABLET PO (08:33)
[2022-02-06] MEDS: Baclofen 10 MG TABLET 5 MG PO (08:33)
[2022-02-06] MEDS: Cholecalciferol (Vitamin D3) 25 MCG TABLET 50 MCG PO (08:33)
[2022-02-06] MEDS: Atorvastatin Calcium 10 MG TABLET PO (08:34)
[2022-02-06] MEDS: Gabapentin 400 MG CAPSULE 800 MG PO (08:34)
== END 2022-02-06 09:57 | disposition home or self-care (01) ==
PROVIDERS: Emergency Medicine Emergency Medical Services; Emergency Provider Emergency Medicine
DX: S09.90XA Unspecified injury of head, initial encounter (principal); S13.9XXA Sprain of joints and ligaments of unspecified parts of neck, initial encounter; S40.011A Contusion of right shoulder, initial encounter; W05.0XXA Fall from non-moving wheelchair, initial encounter; G81.11 Spastic hemiplegia affecting right dominant side; Y93.89 Activity, other specified; Y92.122 Bedroom in nursing home as the place of occurrence of the external cause; Y99.9 Unspecified external cause status; Z87.820 Personal history of traumatic brain injury; F17.210 Nicotine dependence, cigarettes, uncomplicated
CPT/HCPCS: 36415; 70450; 72125; 73030; 80053; 85025; 96361; 96374; 96375; 96376; 99284; 99285; J2270; J2405

== ENCOUNTER 2022-04-24 14:17 | Emergency (ER) | payer MEDICAID, SELFPAY ==
[2022-04-24 14:23] VITALS: BP 141/77; PULSE 100; O2SAT 99
[2022-04-24 14:24] VITALS: BP 146/95; PULSE 100; RESP 19; TEMP 36.1; O2SAT 98; BMI 20.7
[2022-04-24 14:40] VITALS: BP 146/101; PULSE 99; RESP 24; O2SAT 97
--- NOTE | 2022-04-24 14:41 | ED.FALL ---
HPI - Fall General Chief Complaint: Fall Stated Complaint: R SIDE & R FACE PAIN S/P FALL Time Seen by Provider: 04/24/22 14:22 Source: patient and EMS Mode of arrival: EMS Limitations: no limitations History of Present Illness HPI Narrative: This is a 41-year-old female that comes from a long-term care facility with a history of anxiety, depression, traumatic brain injury with subsequent right-sided hemiplegia who uses a wheelchair for ambulation who presents with fall. Per patient she was reaching for her [place] presents when she fell forward out of her wheelchair striking the right side of her head and her right upper extremity. She denies any loss of consciousness. She does report mild headache and feeling dizzy as well as pain to the right upper arm. Patient's tetanus status is unknown. She denies any neck pain, chest pain, abdominal pain, vision changes, vomiting. MD complaint: fall Related Data Home Medications Medication Instructions Recorded Confirmed acetaminophen 325 mg tablet 650 mg PO Q6H PRN Fever 10/09/21 02/05/22 albuterol sulfate 2.5 mg/3 mL 3 ml inhalation Q12H PRN Shortness 10/09/21 02/05/22 (0.083 %) solution for nebulization Of Breath amitriptyline 10 mg tablet 2 tab PO BEDTIME 10/09/21 02/05/22 atorvastatin 10 mg tablet 1 tab PO DAILY 10/09/21 02/05/22 baclofen 5 mg tablet 1 tab PO TID 10/09/21 02/05/22 bisacodyl 10 mg rectal suppository 10 mg [place] DAILY PRN Constipation 10/09/21 02/05/22 chlorhexidine gluconate 0.12 % 15 ml PO MOWEFR 10/09/21 02/05/22 mouthwash cholecalciferol (vitamin D3) 50 50 mcg PO DAILY 10/09/21 02/05/22 mcg (2,000 unit) tablet diazepam 2 mg tablet 0.5 tab PO BID PRN Anxiety 10/09/21 02/05/22 folic acid 1 mg tablet 1 mg PO DAILY 10/09/21 02/05/22 gabapentin 400 mg capsule 2 cap PO TID 10/09/21 02/05/22 lorazepam 1 mg tablet 1 tab PO BID PRN Anxiety 10/09/21 02/05/22 multivitamin 1 tab PO DAILY 10/09/21 02/05/22 oxycodone 5 mg tablet 1 tab PO BID PRN Pain 10/09/21 02/05/22 polyethylene glycol 3350 17 17 g PO BID 10/09/21 02/05/22 gram/dose oral powder (Miralax) quetiapine 100 mg tablet 1 tab PO BEDTIME 10/09/21 02/05/22 quetiapine 50 mg tablet 1 tab PO BEDTIME 10/09/21 02/05/22 sennosides 8.6 mg-docusate sodium 2 tab-cap PO BID 10/09/21 02/05/22 50 mg tablet thiamine HCl (vitamin B1) 100 mg 100 mg PO DAILY 10/09/21 02/05/22 tablet Allergies Allergy/AdvReac Type Severity Reaction Status Date / Time diphenhydramine Allergy Unknown Unknown Verified 12/20/21 14:24 [From Benadryl] NSAIDS (Non-Steroidal Allergy Unknown Verified 12/20/21 14:24 Anti-Inflamma Review of Systems Review of Systems: Yes all other systems are reviewed and are negative Constitutional: Constitutional: Reports no additional constitutional complaints, Denies body ache(s), Denies chills, Denies fever(s), Reports headache(s) and Denies weakness Eyes: Eyes: Reports no additional eye complaints and Denies change in vision ENT: Reports system reviewed and no additional complaints, except as documented, Reports dizziness, Reports headache(s), Denies nasal congestion, Denies nasal discharge and Denies neck pain Cardiovascular: Cardiovascular: Reports no additional cardiovascular complaints, Denies chest pain, Denies leg edema and Denies dyspnea Respiratory: Respiratory: Reports no additional respiratory complaints, Denies cough and Denies dyspnea Gastrointestinal: Gastrointestinal: Reports no additional gastrointestinal complaints, Denies abdominal pain, Denies diarrhea, Denies nausea and Denies vomiting Genitourinary: Genitourinary: Reports no additional female genitourinary complaints and Denies urinary incontinence Musculoskeletal: Musculoskeletal: Reports no additional musculoskeletal complaints, Denies back pain, Reports arthralgias, Denies joint swelling, Reports limited range of motion, Denies neck pain, Denies numbness and Denies tingling Integumentary/Breasts: Skin/Breast: Reports system reviewed and no additional complaints, except as docu and Denies rash Neurologic: Reports system reviewed and no additional complaints, except as documented, Denies Abnormal speech present, Reports dizziness, Reports headache(s), Denies numbness, Denies tingling and Denies weakness PMFSH Past Medical History Attestation statement: The following information was validated with the patient. Source: old records reviewed and nursing notes reviewed Medical History Asthma Depression Dysarthria Dysarthria Dysphagia Right spastic hemiparesis Smoker TBI (traumatic brain injury) Social History Social History Alcohol intake: former Patient Tobacco Use Status: Current everyday Tobacco user Cigarette Packs Per Day: 3 Advance Directives: No Advance Directives Information Provided: No Physical Exam Vital Signs: Vital Signs: Last Vital Signs Temp 97 F 04/24/22 14:24 Pulse 99 04/24/22 14:40 Resp 24 H 04/24/22 14:40 BP 146/101 H 04/24/22 14:40 Pulse Ox 97 04/24/22 14:40 O2 Del Method 04/24/22 14:40 BMI result Body Mass Index 20.7 Const: General: cooperative, healthy appearing, comfortable and no acute distress Orientation/consciousness: patient oriented x3 Limitations: no limitations HEENT: Head: Yes normal to inspection, No Garza's sign and No raccoon eyes Head images: 1. +laceration 2cm Ears: hearing grossly normal bilaterally and TM's normal bilaterally General nose exam: Normal external nose present Face and sinus: Yes normal facial exam Mouth: Normal oral and palatal mucosa present Throat: Yes posterior oropharynx normal Eyes: General: appearance normal, both eyes and all related structures Pupils: Equal, round and reactive pupils present Neck: Other: No cervical midline tenderness, step-offs or deformities. Cervical collar in place. Range of motion not assessed due to collar Neck: Yes normal visual inspection Chest: Chest palpation & inspection: normal inspection of the chest Resp: Effort & Inspection: normal respiratory effort Auscultation: clear to auscultation bilaterally Cardio: Rate: regular rate Rhythm: regular rhythm Peripheral pulses: Peripheral pulses 2+ throughout GI: Inspection: Yes normal to inspection Palpation (GI): Soft to palpation and nontender Auscultation: normal bowel sounds Back/Spine/Pelvis: Thoracic/Lumbar Spine: thoracic and lumbar spine normal to inspection Skin: General skin exam: no rashes or lesions noted Neuro: Other: Patient with right-sided weakness at baseline. Patient with contracture and hypertonia to right upper and right lower extremity. General: patient oriented x3, normal sensation to monofilament and Unable to assess gait Cranial nerves: Yes Equal, round and reactive pupils present Cognition (Neuro): normal cognition Speech: No Abnormal speech present Gait exam (Neuro): Unable to assess gait Extrem: Other: Patient with tenderness over the right proximal humerus and right anterior shoulder with no obvious deformity. Limited range of motion due to pain. Palpable radial and ulnar pulses. Sensation intact distally. General: Yes normal to inspection Course Course Course Narrative: CT showed no acute finding. Cervical collar was cleared patient to go to x-ray Reevaluation(s) Reevaluation #1: X-ray of the right upper extremity was negative for fracture. Likely contusion. Patient requesting sling for comfort. Therefore it is was placed. See procedure note for wound repair. Patient will be discharged back to [facility] Medications Administered Discontinued Medications Generic Name Dose Route Start Last Admin Trade Name Freq PRN Reason Stop Dose Admin Diphtheria/Tetanus/Acell Pertussis 0.5 ml 04/24/22 14:36 04/24/22 14:44 Diphth,Pertus(Acell),Tet Adult 0.5 Ml Syringe IM 04/24/22 14:37 0.5 ml .ONCE ONE Administration Oxycodone HCl 5 mg 04/24/22 14:36 04/24/22 14:43 Oxycodone Hcl Immed Release 5 Mg Tablet PO 04/24/22 14:37 5 mg ONCE ONE Administration Oxycodone HCl 5 mg 04/24/22 16:33 04/24/22 16:45 Oxycodone Hcl Immed Release 5 Mg Tablet PO 04/24/22 16:34 5 mg ONCE ONE Administration Procedures Laceration Laceration 1: Site: face Side (If applicable): right Size (cm): 2 Description: linear Depth: simple, single layer Pre-repair: wound explored and irrigated extensively Size (cm): other (Wound was closed with skin glue and Steri-Strips) Medical Decision Making Medical Decision Making MDM Narrative: 41-year-old female with history of traumatic brain injury with subsequent right upper and lower extremity hemiplegia here with mechanical fall with head strike with no loss of consciousness with laceration to the right side of the head. Also complaining of right upper extremity pain with limited range of motion due to pain. Will check CT head, facial bones, cervical spine, x-rays of the right upper extremity. Tetanus status is unknown the patient received today as well as pain control Differential Diagnosis Differential Diagnoses: The differential diagnosis associated with the presentation includes Contusion, laceration, hemorrhage, or fracture Radiology Impression Discussion of test interpretation with radiology: I have reviewed the radiologist's reading. Radiologist Impression: I reviewed the radiologist's reading and have independently interpreted the CT head, CT cervical spine and CT facial bones with no acute fractures, no intracranial hemorrhage. I reviewed the radiologist's reading and have independently interpreted the x-ray of the left humerus as negative for fracture Independent Historian Clinical information obtained from an independent historian. History obtained from or confirmed by: EMS Discharge Plan Discharge Clinical Impression: Facial laceration, Contusion of arm, right Patient Disposition: [facility] Transfer Details: BACK TO [facility] [place] Prescriptions: No Action multivitamin Tablet 1 tab PO DAILY acetaminophen 325 mg Tablet 650 mg PO Q6H PRN (Reason: Fever) albuterol sulfate 2.5 mg /3 mL (0.083 %) solution for nebulization 3 ml inhalation Q12H PRN (Reason: Shortness Of Breath) atorvastatin 10 mg tablet 1 tab PO DAILY sennosides-docusate sodium [DOK Plus] 8.6-50 mg Tablet 2 tab-cap PO BID gabapentin 400 mg capsule 2 cap PO TID thiamine HCl (vitamin B1) 100 mg Tablet 100 mg PO DAILY quetiapine 100 mg tablet 1 tab PO BEDTIME amitriptyline 10 mg tablet 2 tab PO BEDTIME diazepam 2 mg tablet 0.5 tab PO BID PRN (Reason: Anxiety) bisacodyl 10 mg Suppository 10 mg MS DAILY PRN (Reason: Constipation) folic acid 1 mg Tablet 1 mg PO DAILY lorazepam 1 mg tablet 1 tab PO BID PRN (Reason: Anxiety) polyethylene glycol 3350 [Miralax] 17 gram/dose Powder 17 g PO BID oxycodone 5 mg tablet 1 tab PO BID PRN (Reason: Pain) chlorhexidine gluconate 0.12 % mouthwash 15 ml PO MOWEFR quetiapine 50 mg tablet 1 tab PO BEDTIME cholecalciferol (vitamin D3) 50 mcg (2,000 unit) Tablet 50 mcg PO DAILY baclofen 5 mg tablet 1 tab PO TID
--- NOTE | 2022-04-24 17:51 | MHC.EDTECH ---
@ [phone] CALL PLACED TO JANINE FAYE FOR BLS TX BACK TO [facility] ANSWERS AND GIVES A 30MIN-1HR ETA
--- NOTE | 2022-04-24 20:09 | PC.NURSE ---
Assumed care of patient. Requested food. [place] and herb chanel provided. Patient waiting on [facility] transport.
--- NOTE | 2022-04-24 21:05 | PC.NURSE ---
Patient discharged. Discharge instructions given to [facility]. Transporting patient back to [facility] by stretcher. Patient alert and oriented. No apparent distress. R arm placed in sling.
== END 2022-04-24 21:05 | disposition skilled nursing facility (03) ==
PROVIDERS: Emergency Provider Internal Medicine; PCP Hospitalist
DX: S01.81XA Laceration without foreign body of other part of head, initial encounter (principal); S40.021A Contusion of right upper arm, initial encounter; S50.811A Abrasion of right forearm, initial encounter; R51.9 Headache, unspecified; M54.2 Cervicalgia; W05.0XXA Fall from non-moving wheelchair, initial encounter; Y93.9 Activity, unspecified; Y92.009 Unspecified place in unspecified non-institutional (private) residence as the place of occurrence of the external cause; Y99.9 Unspecified external cause status; Z79.899 Other long term (current) drug therapy; F17.210 Nicotine dependence, cigarettes, uncomplicated; Z71.6 Tobacco abuse counseling
CPT/HCPCS: 12051; 70450; 70486; 72125; 73030; 73060; 90471; 90715; 99284

== ENCOUNTER 2022-06-15 14:09 | Emergency (ER) | payer MEDICAID, SELFPAY ==
--- NOTE | ~2022-06-15 | CT_ITS ---
EXAMINATION: CT HEAD WITHOUT CONTRAST CLINICAL INFORMATION: Fall. COMPARISON: CT head 04/24/2022. TECHNIQUE: Contiguous axial imaging was performed from the skull base to vertex without intravenous administration of contrast. This CT examination was performed using dose optimization techniques as appropriate, variously including the following: *Automated exposure control *Adjustment of mA and/or kV according to patient size (this includes techniques or standardized protocols for targeted exams where dose is matched to indication/reason for exam; i.e. extremities or head) *Use of iterative reconstruction technique DLP: 636 mGy-cm FINDINGS: There are chronic changes of a right craniotomy. There are multiple foci of gliosis and encephalomalacia involving the right frontal operculum and right temporal lobe. Otherwise no intracranial mass effect or midline shift. No abnormal extra-axial collection. Lateral and third ventricles are normal. No hydrocephalus. Grossly no evidence of acute territorial infarct or hemorrhage. The skull base is intact. No mastoid middle ear effusion. No active paranasal sinus disease. CT/CT head/brain wo IV con IMPRESSION: There are chronic changes of a right craniotomy. There are multiple foci of gliosis and encephalomalacia involving the right frontal operculum and right temporal lobe. Otherwise unremarkable examination. No evidence of acute territorial infarct or hemorrhage.
[2022-06-15 14:24] VITALS: BP 140/98; PULSE 96; O2SAT 99
[2022-06-15 14:41] VITALS: BP 122/89; PULSE 89; RESP 16; TEMP 36.3; O2SAT 98
[2022-06-15 14:43] VITALS: BMI 18.8
[2022-06-15] MEDS: Acetaminophen 325 MG TABLET 975 MG PO (15:53)
[2022-06-15 16:00] VITALS: BP 162/100; PULSE 79; RESP 16; TEMP 36.8; O2SAT 99
--- NOTE | 2022-06-15 16:00 | MHC.EDTECH ---
this pct assumed care of pt at 1500 ,myself and kasey duff assisted pt unto bedside commode pt voided lg amount of urine ,care given ,vitals sign taken ,urine sample sent to lab .
[2022-06-15 16:26] LABS: Appearance Urine Cloudy; Color Urine Yellow; Glucose Urine UA Negative (Negative); Leukocyte Esterase Urine Negative (Negative); Nitrite Urine Negative (Negative); PH 7.5 (5.0-9.0); Specific Gravity - Urine >= 1.030 (1.005-1.025); Urine Blood Negative (Negative); Urine Ketones Negative (Negative); Urine Protein Trace mg/dL (Neg-Trace)
[2022-06-15 16:27] LABS: UPreg QC Valid YES; Urine Pregnancy NEGATIVE (NEGATIVE)
--- NOTE | 2022-06-15 16:30 | PC.NURSE ---
PT FELL ON MONDAY, CAME IN TODAY DUE TO [facility], MEDICATED WITH TYLENOL FOR PAIN. PT ASKING FOR SOMETHING STRONGER PROVIDER AWARE
--- NOTE | 2022-06-15 16:57 | ED.FALL ---
HPI - Fall General Chief Complaint: Fall Stated Complaint: HEADACHE S/P FALL T-3 Time Seen by Provider: 06/15/22 15:00 Source: patient Mode of arrival: EMS History of Present Illness HPI Narrative: 41-year-old female is brought in by ambulance from [facility] [place] for complaints of headache and citing a fall on 06/12/2022. The facility reports that patient was self transferring from a bed to a chair when she fell. Patient is not on blood thinners and is alert and complains of headache. Related Data Home Medications Medication Instructions Recorded Confirmed acetaminophen 325 mg tablet 650 mg PO Q6H PRN Fever 10/09/21 02/05/22 albuterol sulfate 2.5 mg/3 mL 3 ml inhalation Q12H PRN Shortness 10/09/21 02/05/22 (0.083 %) solution for nebulization Of Breath amitriptyline 10 mg tablet 2 tab PO BEDTIME 10/09/21 02/05/22 atorvastatin 10 mg tablet 1 tab PO DAILY 10/09/21 02/05/22 baclofen 5 mg tablet 1 tab PO TID 10/09/21 02/05/22 bisacodyl 10 mg rectal suppository 10 mg [place] DAILY PRN Constipation 10/09/21 02/05/22 chlorhexidine gluconate 0.12 % 15 ml PO MOWEFR 10/09/21 02/05/22 mouthwash cholecalciferol (vitamin D3) 50 50 mcg PO DAILY 10/09/21 02/05/22 mcg (2,000 unit) tablet diazepam 2 mg tablet 0.5 tab PO BID PRN Anxiety 10/09/21 02/05/22 folic acid 1 mg tablet 1 mg PO DAILY 10/09/21 02/05/22 gabapentin 400 mg capsule 2 cap PO TID 10/09/21 02/05/22 lorazepam 1 mg tablet 1 tab PO BID PRN Anxiety 10/09/21 02/05/22 multivitamin 1 tab PO DAILY 10/09/21 02/05/22 oxycodone 5 mg tablet 1 tab PO BID PRN Pain 10/09/21 02/05/22 polyethylene glycol 3350 17 17 g PO BID 10/09/21 02/05/22 gram/dose oral powder (Miralax) quetiapine 100 mg tablet 1 tab PO BEDTIME 10/09/21 02/05/22 quetiapine 50 mg tablet 1 tab PO BEDTIME 10/09/21 02/05/22 sennosides 8.6 mg-docusate sodium 2 tab-cap PO BID 10/09/21 02/05/22 50 mg tablet thiamine HCl (vitamin B1) 100 mg 100 mg PO DAILY 10/09/21 02/05/22 tablet Allergies Allergy/AdvReac Type Severity Reaction Status Date / Time diphenhydramine Allergy Unknown Unknown Verified 12/20/21 14:24 [From Benadryl] NSAIDS (Non-Steroidal Allergy Unknown Verified 12/20/21 14:24 Anti-Inflamma Review of Systems Review of Systems: Pertinent positives and negatives as stated in [facility] Past Medical History Source: nursing notes reviewed Medical History Asthma Depression Dysarthria Dysarthria Dysphagia Right spastic hemiparesis Smoker TBI (traumatic brain injury) Social History Social History Alcohol intake: former Patient Tobacco Use Status: Current everyday Tobacco user Cigarette Packs Per Day: 3 Smoked in Last 30 Days: No Use of substances other than those prescribed or required for medical reasons: No Advance Directives: No Advance Directives Information Provided: No Patient : No Physical Exam Vital Signs: Vital Signs: Last Vital Signs Temp 98.2 F 06/15/22 16:00 Pulse 79 06/15/22 16:00 Resp 16 06/15/22 16:00 BP 162/100 H 06/15/22 16:00 Pulse Ox 99 06/15/22 16:00 O2 Del Method 06/15/22 16:00 BMI result Body Mass Index 18.8 VITAL SIGNS: Reviewed. GENERAL: Well developed, well nourished, in no acute distress. HEAD: Normocephalic/atraumatic, with scars consistent with trauma history EYES: PERRLA, EOMI, there is a small laceration and contusion noted at the lateral left orbit EARS: Ext canals without abnormality OROPHARYNX: no oral lesions noted, posterior pharynx clear LUNGS: Normal breath sounds. No adventitious sounds or accessory muscle use. SpO2<99> CARDIOVASCULAR: Regular rate and rhythm without noted murmurs ABDOMEN: Soft, non-tender, non-distended with bowel sounds. SKIN: Inspection of the skin reveals no rashes NEUROLOGIC: Alert and oriented x 4. Medications Administered Discontinued Medications Generic Name Dose Route Start Last Admin Trade Name Freq PRN Reason Stop Dose Admin Acetaminophen 975 mg 06/15/22 15:47 06/15/22 15:53 Acetaminophen 325 Mg Tablet PO 06/15/22 15:48 975 mg ONCE ONE Administration Medical Decision Making Medical Decision Making MDM Narrative: 41-year-old female who presents with headache after a fall 3 days ago. There are no focal deficits, but will obtain CT of the head after urine , Tylenol was offered but patient became mildly frustrated stating that Tylenol would not work as her currently prescribed oxycodone does not work. Review of investigations and my interpretation is that this is patient has chronic headaches, on review of documentation patient has had multiple falls. Differential Diagnosis Differential Diagnoses: The differential diagnosis associated with the presentation includes Please see the discussion above Lab Data [facility] Lab Attestation statement: I reviewed the patient's lab results. Please see the discussion above Labs: Lab Results 06/15/22 06/15/22 Range/Units 16:17 16:17 Urine Color Yellow Urine Appearance Cloudy Urine pH 7.5 (5.0-9.0) Ur Specific [place] >= 1.030 H (1.005-1.025) Urine Protein Trace (Neg-Trace) mg/dL Urine Glucose (UA) Negative (Negative) mg/dL Urine Ketones Negative (Negative) mg/dL Urine Blood Negative (Negative) Urine Nitrite Negative (Negative) Ur Leukocyte Esterase Negative (Negative) Urine Test NEGATIVE (NEGATIVE) Radiology Impression Radiologist Impression: My interpretation is in agreement with radiology's impression of the imaging study. External Record Review External record reviewed: Outpatient record and Prior outpatient labs Discharge Plan Discharge Clinical Impression: Headache, Fall Patient Disposition: [facility] Instructions: Fall Prevention (ED), General Headache (ED) Additional Instructions: 1. Resume all home medications as prescribed. 2. Follow-up with your primary care provider in the next 1-2 days for further discussion regarding your pain medication control for your headaches. Return to the ER for any worsening symptoms. Prescriptions: No Action multivitamin Tablet 1 tab PO DAILY acetaminophen 325 mg Tablet 650 mg PO Q6H PRN (Reason: Fever) albuterol sulfate 2.5 mg /3 mL (0.083 %) solution for nebulization 3 ml inhalation Q12H PRN (Reason: Shortness Of Breath) atorvastatin 10 mg tablet 1 tab PO DAILY sennosides-docusate sodium [DOK Plus] 8.6-50 mg Tablet 2 tab-cap PO BID gabapentin 400 mg capsule 2 cap PO TID thiamine HCl (vitamin B1) 100 mg Tablet 100 mg PO DAILY quetiapine 100 mg tablet 1 tab PO BEDTIME amitriptyline 10 mg tablet 2 tab PO BEDTIME diazepam 2 mg tablet 0.5 tab PO BID PRN (Reason: Anxiety) bisacodyl 10 mg Suppository 10 mg [place] DAILY PRN (Reason: Constipation) folic acid 1 mg Tablet 1 mg PO DAILY lorazepam 1 mg tablet 1 tab PO BID PRN (Reason: Anxiety) polyethylene glycol 3350 [Miralax] 17 gram/dose Powder 17 g PO BID oxycodone 5 mg tablet 1 tab PO BID PRN (Reason: Pain) chlorhexidine gluconate 0.12 % mouthwash 15 ml PO MOWEFR quetiapine 50 mg tablet 1 tab PO BEDTIME cholecalciferol (vitamin D3) 50 mcg (2,000 unit) Tablet 50 mcg PO DAILY baclofen 5 mg tablet 1 tab PO TID Referrals: Javi Shay DO [Primary Care Provider] -
[2022-06-15 18:44] VITALS: BP 142/70; PULSE 74; RESP 16; TEMP 36.6; O2SAT 97
--- NOTE | 2022-06-15 18:45 | MHC.EDTECH ---
pt had a ham sandwich and herb chanel for snack .
--- NOTE | 2022-06-15 20:22 | PC.NURSE ---
this rn attempted to given nurse to nurse report to nurse at [facility] facility. this rn provided report to ems prior to discharge. pt sen back to facility with discharge packet
== END 2022-06-15 20:24 ==
PROVIDERS: Emergency Provider Student in an Organized Health Care Education/Training Program; PCP Hospitalist
DX: S05.12XA Contusion of eyeball and orbital tissues, left eye, initial encounter (principal); W19.XXXA Unspecified fall, initial encounter; R51.9 Headache, unspecified; Z79.899 Other long term (current) drug therapy; Z79.02 Long term (current) use of antithrombotics/antiplatelets; Z87.820 Personal history of traumatic brain injury; F17.210 Nicotine dependence, cigarettes, uncomplicated; Y93.89 Activity, other specified; Y92.122 Bedroom in nursing home as the place of occurrence of the external cause; Y99.9 Unspecified external cause status
CPT/HCPCS: 70450; 81003; 81025; 99284

== ENCOUNTER 2022-07-05 08:57 | Outpatient (REF) | payer MEDICAID, SELFPAY ==
[2022-07-05 15:29] LABS: CT PCR NOT DETECTED (Not Detect.); NG PCR NOT DETECTED (Not Detect.)
[2022-07-06 09:37] LABS: BV Int Neg Control Negative (Negative); BV Int Pos Control Positive (Positive)
== END 2022-07-05 08:58 | disposition home or self-care (01) ==
LOC: HO.LAB 08:57
PROVIDERS: PCP Hospitalist; Visit Provider Advanced Practice Midwife
DX: N92.6 Irregular menstruation, unspecified (principal); N93.9 Abnormal uterine and vaginal bleeding, unspecified; N89.8 Other specified noninflammatory disorders of vagina
CPT/HCPCS: 0353U; 87480; 87510; 87660; 99202

== ENCOUNTER 2022-07-05 09:49 | Outpatient (REF) | payer MEDICAID, SELFPAY | END 2022-07-05 09:50 | disposition home or self-care (01) | LOC: HO.LNP 09:49 | PROVIDERS: Visit Provider Advanced Practice Midwife | DX: Z13.89 Encounter for screening for other disorder (principal) ==

== ENCOUNTER → 2022-07-13 14:10 | Outpatient (BNVA) | payer MEDICAID, SELFPAY | PROVIDERS: PCP Hospitalist; Visit Provider Internal Medicine | DX: J45.909 Unspecified asthma, uncomplicated (principal); G81.11 Spastic hemiplegia affecting right dominant side; R47.1 Dysarthria and anarthria; S06.9X0S Unspecified intracranial injury without loss of consciousness, sequela; X58.XXXS Exposure to other specified factors, sequela; F17.200 Nicotine dependence, unspecified, uncomplicated; K08.9 Disorder of teeth and supporting structures, unspecified | CPT/HCPCS: 99212 ==

== ENCOUNTER 2022-08-01 11:05 | Outpatient (REF) | payer MEDICAID, SELFPAY ==
--- NOTE | ~2022-08-01 | US_ITS ---
EXAMINATION: US PELVIC AND TRANSVAGINAL CLINICAL INFORMATION: Abnormal uterine and vaginal bleeding. COMPARISON: None available. TECHNIQUE: Ultrasound of the pelvis is performed using both transabdominal and transvaginal transducers along with Doppler. Transvaginal imaging is performed due to inadequate visualization transabdominally. FINDINGS: UTERUS: The uterus is anteverted and retroflexed measuring 6.5 x 4.1 x 4.8 cm. The double wall endometrial thickness is 0.9 mm. The uterus is smooth in contour and has normal myometrial echogenicity. No visible fibroid. ADNEXA: Both ovaries are visualized. There is normal color flow to the adnexa. There is no ovarian torsion. There is trace free fluid is seen in the left adnexa. Right ovary measures 3.5 x 2.1 x 1.9 cm for a volume of 7.3 mL which includes a 2.3 x 1.7 x 1.7 cm corpus luteal cyst. Left ovary measures 2.1 x 1.0 x 1.8 cm for a volume of 2.0 mL. Some punctate echogenic foci are noted in the left ovary. US/US pelvic and transvaginal IMPRESSION: No significant abnormality is seen. A cause for the patient's abnormal uterine bleeding has not been found.
== END 2022-08-01 11:06 | disposition home or self-care (01) ==
LOC: HO.US 11:05
PROVIDERS: PCP Hospitalist; Visit Provider Advanced Practice Midwife
DX: N93.9 Abnormal uterine and vaginal bleeding, unspecified (principal)
CPT/HCPCS: 76830; 76856

== ENCOUNTER 2022-08-05 13:39 | Emergency (ER) | payer MEDICAID, SELFPAY ==
--- NOTE | ~2022-08-05 | CT_ITS ---
EXAMINATION: CT ABDOMEN AND PELVIS WITH CONTRAST CLINICAL INFORMATION: Abdominal pain COMPARISON: Pelvic ultrasound 08/01/2022. CT scan abdomen and pelvis most recent March 2021 TECHNIQUE: Multidetector volumetric images were obtained from the superior aspect of the liver through the pubic symphysis following administration 85 mL of Omnipaque 350 intravenous contrast. Sagittal and coronal reformatted images were obtained on the technologist's workstation. Oral contrast: No This CT examination was performed using dose optimization techniques as appropriate, variously including the following: *Automated exposure control *Adjustment of mA and/or kV according to patient size (this includes techniques or standardized protocols for targeted exams where dose is matched to indication/reason for exam; i.e. extremities or head) *Use of iterative reconstruction technique DLP: 578 mGy-cm FINDINGS: LUNG BASES: Minimal posterior dependent atelectasis similar to previous LIVER, GALLBLADDER, AND BILIARY TREE: The common duct remains mildly dilated at 9 mm period there is minimal intrahepatic biliary dilatation not seen previously gallbladder unremarkable.. PANCREAS: Unremarkable. SPLEEN: Unremarkable. ADRENAL GLANDS: Unremarkable. KIDNEYS AND URETERS: There is a large cyst in the upper pole of the left kidney unchanged. Small cyst in the cortex of left kidney measuring approximately 12 mm unchanged. Additional small cysts noted in the lower pole the right kidney unchanged. No follow-up necessary for the cyst. No hydronephrosis. No stones. BLADDER: Unremarkable. GASTROINTESTINAL TRACT: Appendix not visualized. No inflammatory changes in the right lower quadrant. Large bowel are unremarkable. Small bowel normal. Stomach normal. ABDOMINAL WALL: No significant hernia is appreciated. LYMPH NODES: d VASCULAR: IVC filter remains in place unchanged. Mild calcific atherosclerotic disease unchanged. Axial PELVIC VISCERA: Small 1.5 mm simple cyst in the right ovary. No follow-up necessary. Uterus unremarkable. OSSEOUS STRUCTURES: Unremarkable. CT/CT abdomen pelvis w IV con IMPRESSION: 1. No definite acute abnormality. 2. Mild dilatation of the common duct change and minimal intrahepatic biliary dilatation not seen previously. Correlate with liver function tests. 3. Stable renal cysts. No follow-up necessary 4. IVC filter unchanged. 5. Mild calcific atherosclerotic disease unchanged. 6. Small simple cyst in the right ovary. No follow-up necessary. 7. Appendix not visualized. No inflammatory changes in the right lower quadrant. Fleischner guidelines were followed.
[2022-08-05 13:52] VITALS: BP 135/70; BP 142/83; PULSE 87; PULSE 94; RESP 16; TEMP 36.7; O2SAT 98; O2SAT 99; BMI 18.7
[2022-08-05 14:07] VITALS: BP 151/117; PULSE 95; RESP 18; TEMP 36.6; O2SAT 99
--- NOTE | 2022-08-05 14:46 | ED.ABDPAIN ---
HPI - Abdominal Pain General Chief Complaint: Abdominal Pain Stated Complaint: Abd pain, decreased urine output per EMS Time Seen by Provider: 08/05/22 14:39 Source: patient Mode of arrival: EMS Limitations: language barrier History of Present Illness HPI narrative: 41-year-old female with history of traumatic brain injury, dysarthria, spastic right hemiparesis presents with abdominal pain. Symptoms are severe. They started 2 days ago. They are constant. It started in the lower abdomen and now in the epigastric area. It was initially associated with nausea vomiting. She currently denies any nausea vomiting. She denies any diarrhea or constipation. She denies any urinary frequency, urgency, dysuria or blood in urine. Patient describes the pain is a sharp pain. The pain does not radiate. Related Data Home Medications Medication Instructions Recorded Confirmed acetaminophen 325 mg tablet 650 mg PO Q6H PRN Fever 10/09/21 02/05/22 albuterol sulfate 2.5 mg/3 mL 3 ml inhalation Q12H PRN Shortness 10/09/21 02/05/22 (0.083 %) solution for nebulization Of Breath amitriptyline 10 mg tablet 2 tab PO BEDTIME 10/09/21 02/05/22 atorvastatin 10 mg tablet 1 tab PO DAILY 10/09/21 02/05/22 baclofen 5 mg tablet 1 tab PO TID 10/09/21 02/05/22 bisacodyl 10 mg rectal suppository 10 mg IA DAILY PRN Constipation 10/09/21 02/05/22 chlorhexidine gluconate 0.12 % 15 ml PO MOWEFR 10/09/21 02/05/22 mouthwash cholecalciferol (vitamin D3) 50 50 mcg PO DAILY 10/09/21 02/05/22 mcg (2,000 unit) tablet diazepam 2 mg tablet 0.5 tab PO BID PRN Anxiety 10/09/21 02/05/22 folic acid 1 mg tablet 1 mg PO DAILY 10/09/21 02/05/22 gabapentin 400 mg capsule 2 cap PO TID 10/09/21 02/05/22 lorazepam 1 mg tablet 1 tab PO BID PRN Anxiety 10/09/21 02/05/22 multivitamin 1 tab PO DAILY 10/09/21 02/05/22 oxycodone 5 mg tablet 1 tab PO BID PRN Pain 10/09/21 02/05/22 polyethylene glycol 3350 17 17 g PO BID 10/09/21 02/05/22 gram/dose oral powder (Miralax) quetiapine 100 mg tablet 1 tab PO BEDTIME 10/09/21 02/05/22 quetiapine 50 mg tablet 1 tab PO BEDTIME 10/09/21 02/05/22 sennosides 8.6 mg-docusate sodium 2 tab-cap PO BID 10/09/21 02/05/22 50 mg tablet thiamine HCl (vitamin B1) 100 mg 100 mg PO DAILY 10/09/21 02/05/22 tablet naloxone 4 mg/actuation nasal 4 mg intranasal Q2M PRN 07/05/22 spray (Narcan) Allergies Allergy/AdvReac Type Severity Reaction Status Date / Time diphenhydramine Allergy Unknown Unknown Verified 07/13/22 14:48 [From Benadryl] NSAIDS (Non-Steroidal Allergy Unknown Verified 07/13/22 14:48 Anti-Inflamma PMFSH Past Medical History Medical History Asthma Depression Dysarthria Dysarthria Dysphagia Right spastic hemiparesis Smoker TBI (traumatic brain injury) Social History Social History Alcohol intake: former Patient Tobacco Use Status: Current everyday Tobacco user Cigarette Packs Per Day: 3 Advance Directives: No Advance Directives Information Provided: Yes Physical Exam ED Vital Signs: Vital Signs - 24 hr 08/05/22 13:52 08/05/22 14:07 Temperature 98.1 F 98 F Pulse Rate 87 95 Respiratory Rate 16 18 Blood Pressure 142/83 H 151/117 H Pulse Oximetry 98 99 Oxygen Delivery Method Room Air Room Air BMI result Body Mass Index 18.7 GEN: Well developed, no acute distress, alert, oriented HEENT: Normocephalic, atraumatic, normal external ears, nose appears normal, no oropharyngeal edema or exudates Eyes: Normal to appearance Neck: Supple, no lymphadenopathy Respiratory: Talks in complete sentences, no respiratory distress, clear to auscultation bilaterally Cardiovascular: Regular rate and rhythm, no murmurs rubs or gallops Abdomen: Soft, nontender, nondistended, no guarding, no rebound Back: No CVA tenderness Extremities: No clubbing cyanosis or edema Neurologic: right-sided spastic paresis Skin: No rash Course Course Course Narrative: 41-year-old female with history of right-sided spastic paresis presents with abdominal pain. In the epigastric area. There is tenderness without rebound or guarding, negative Hernandez sign, negative McBurney's point tenderness. However, cannot rule out appendicitis, cholecystitis, pancreatitis, gastritis, peptic ulcer disease, biliary, IBD, IBS. Will order a CT scan the abdomen pelvis, laboratory analysis, analgesics, antiemetics and H2 blockers. Medical Decision Making Medical Decision Making MDM Narrative: 41-year-old female with history of right-sided spastic paresis presents with abdominal pain. In the epigastric area. There is tenderness without rebound or guarding, negative Hernandze sign, negative McBurney's point tenderness. However, cannot rule out appendicitis, cholecystitis, pancreatitis, gastritis, peptic ulcer disease, biliary, IBD, IBS. Will order a CT scan the abdomen pelvis, laboratory analysis, analgesics, antiemetics and H2 blockers. Differential Diagnosis Differential Diagnoses: The differential diagnosis associated with the presentation includes (see above) Admission/Observation Consideration of admission/observation: Escalation of care including admission/observation considered Tests considered The following testing was considered but not selected: ultrasound, CT Prescription Management I considered prescription management with: Pain Medication Discharge Plan Discharge Clinical Impression: Abdominal pain Prescriptions: No Action multivitamin Tablet 1 tab PO DAILY acetaminophen 325 mg Tablet 650 mg PO Q6H PRN (Reason: Fever) albuterol sulfate 2.5 mg /3 mL (0.083 %) solution for nebulization 3 ml inhalation Q12H PRN (Reason: Shortness Of Breath) atorvastatin 10 mg tablet 1 tab PO DAILY sennosides-docusate sodium [DOK Plus] 8.6-50 mg Tablet 2 tab-cap PO BID gabapentin 400 mg capsule 2 cap PO TID thiamine HCl (vitamin B1) 100 mg Tablet 100 mg PO DAILY quetiapine 100 mg tablet 1 tab PO BEDTIME amitriptyline 10 mg tablet 2 tab PO BEDTIME diazepam 2 mg tablet 0.5 tab PO BID PRN (Reason: Anxiety) bisacodyl 10 mg Suppository 10 mg IA DAILY PRN (Reason: Constipation) folic acid 1 mg Tablet 1 mg PO DAILY lorazepam 1 mg tablet 1 tab PO BID PRN (Reason: Anxiety) polyethylene glycol 3350 [Miralax] 17 gram/dose Powder 17 g PO BID oxycodone 5 mg tablet 1 tab PO BID PRN (Reason: Pain) chlorhexidine gluconate 0.12 % mouthwash 15 ml PO MOWEFR quetiapine 50 mg tablet 1 tab PO BEDTIME cholecalciferol (vitamin D3) 50 mcg (2,000 unit) Tablet 50 mcg PO DAILY baclofen 5 mg tablet 1 tab PO TID naloxone [Narcan] 4 mg/actuation spray,non-aerosol 4 mg intranasal Q2M PRN Rx Instructions: spray 1 dose into ONE nostril; alternate nostrils w each dose until help arrives
[2022-08-05 15:33] LABS: Mean Corpuscular Hemoglobin 29.8 pg (27.0-33.0); PLT CLUMP 1; Red Cell Distribution Width 12.4 % (11.0-16.0); SCAN SMEAR FLAG 1
[2022-08-05 15:34] LABS: Basophils Percent Auto 0.6 % (0-2); Eosinophils Absolute Auto 0.1 X10*3/uL (0.0-0.4); Eosinophils Percent Auto 0.9 % (0-4); Hematocrit 42.4 % (37.0-47.0); Imm Gran Abs Auto 0.01 X10*3/uL (0.00-0.03); Imm Gran Pct Auto 0.1 % (0.0-0.4); Lymphocytes Absolute Auto 1.6 X10*3/uL (1.2-4.9); Lymphocytes Percent Auto 23.5 % (20-40); MANUAL DIFF FLAG SCAN; Mean Corpuscular Volume 90.2 fL (80.0-98.0); Mean Platelet Volume 11.3 fL (9.4-12.3); Monocytes Absolute Auto 0.4 X10*3/uL (0.1-1.2); Monocytes Percent Auto 5.4 % (2-11); Neutrophils Absolute Auto 4.9 x10*3/uL (2.0-8.3); Neutrophils Percent Auto 69.5 % (45-73)
[2022-08-05 15:58] VITALS: BP 142/72; PULSE 95; RESP 16; TEMP 36.9; O2SAT 98
[2022-08-05] MEDS: ondansetron HCL 4 MG/2 ML VIAL IVPUSH (16:06)
[2022-08-05] MEDS: 0.9 % Sodium Chloride 1,000 ML 999 ML IV (16:06)
[2022-08-05] MEDS: Morphine Sulfate 2 MG/ML CARTRIDGE IVPUSH (16:06)
[2022-08-05 16:07] LABS: SLIDE REVIEW VERIFIED
[2022-08-05] MEDS: Famotidine/PF 20 MG/2 ML VIAL IVPUSH (16:07)
[2022-08-05 16:22] LABS: Anion Gap 14 (12-20)
[2022-08-05 16:26] LABS: Alanine Aminotransferase 13 U/L (0-31); Albumin Level 4.6 g/dL (3.5-5.0); Alkaline Phosphatase 74 U/L (39-117); Aspartate Amino Transferase 13 U/L (5-31); Bilirubin Direct 0.3 mg/dL (0.0-0.5); Bilirubin Total 1.1 mg/dL (0.0-1.0); Blood Urea Nitrogen 14 mg/dL (9-16); Calcium 9.6 mg/dL (8.4-10.2); Carbon Dioxide 22 mmol/L (22-29); Chloride 109 mmol/L (96-108); Creatinine Clr Calc Pharmacy 84.4; Estimated Glomerular Filt Rate > 60; Glucose Random 83 mg/dL (60-115); Lipase 20 U/L (8-78); Potassium 4.2 mmol/L (3.3-5.1); Sodium 141 mmol/L (135-145); Total Protein 7.6 g/dL (6.5-8.0)
[2022-08-05 17:06] LABS: HCG Quantitative < 2 mIU/mL
[2022-08-05] MEDS: iohexoL 350 MG/ML 100 ML INFUS..BTL IV (17:38)
[2022-08-05 19:08] LABS: UPreg QC Valid YES; Urine Pregnancy NEGATIVE (NEGATIVE)
[2022-08-05 19:36] LABS: Color Urine Dark Yellow; Glucose Urine UA Negative (Negative); Leukocyte Esterase Urine Negative (Negative); Nitrite Urine Negative (Negative); PH 6.5 (5.0-9.0); Specific Gravity - Urine >= 1.030 (1.005-1.025); Urine Blood Negative (Negative); Urine Ketones 15 mg/dL (Negative); Urine Protein Negative (Neg-Trace)
[2022-08-05 19:37] LABS: Appearance Urine Clear
== END 2022-08-05 20:42 | disposition home or self-care (01) ==
PROVIDERS: Emergency Medicine; Emergency Provider Emergency Medicine; PCP Hospitalist
DX: R10.31 Right lower quadrant pain (principal); R10.813 Right lower quadrant abdominal tenderness; Z79.899 Other long term (current) drug therapy
CPT/HCPCS: 36415; 74177; 80048; 80076; 81003; 81025; 83690; 84702; 85025; 96361; 96374; 96375; 99284; J2270; J2405; Q9967

== ENCOUNTER 2022-09-28 12:49 | Emergency (ER) | payer MEDICAID, SELFPAY ==
--- NOTE | ~2022-09-28 | XR_ITS ---
EXAMINATION: XR CHEST CLINICAL INFORMATION: Recent pneumonia, not improving COMPARISON: November 04, 2021 TECHNIQUE: AP portable view of the chest was obtained. FINDINGS: No significant abnormality is noted involving the heart, lungs, mediastinum, bony thorax or soft tissues. XR/XR chest 1V IMPRESSION: No acute disease.
--- NOTE | ~2022-09-28 | CT_ITS ---
EXAMINATION: CT CHEST WITHOUT CONTRAST CLINICAL INFORMATION: Shortness of breath. Rule out pneumonia. COMPARISON: Previous chest x-ray from earlier the same day and chest CT September 2021 TECHNIQUE: Multidetector volumetric CT imaging of the chest was done. Axial MIP volume rendering provided. Sagittal and coronal reformatted images were obtained. This CT examination was performed using dose optimization techniques as appropriate, variously including the following: *Automated exposure control *Adjustment of mA and/or kV according to patient size (this includes techniques or standardized protocols for targeted exams where dose is matched to indication/reason for exam; i.e. extremities or head) *Use of iterative reconstruction technique DLP: 144 mGy-cm FINDINGS: DOG DAY CARE ATTENDANT: Unremarkable LUNGS: Mild right apical pleural parenchymal scarring. There is dependent atelectasis. The lungs are otherwise clear. No evidence of pneumonia. MEDIASTINUM: The mediastinum is normal. CORONARY ARTERY CALCIFICATION: None visualized on this study. PLEURA: There is no pleural effusion. No pleural mass or thickening. AXILLA: No lymphadenopathy. UPPER ABDOMEN: Large left renal cyst measuring 7 cm. No imaging follow-up recommended. OSSEOUS STRUCTURES: Unremarkable. CT/CT chest wo IV con IMPRESSION: No evidence of pneumonia.. Fleischner guidelines were followed.
--- NOTE | 2022-09-28 13:04 | ECG_ITS ---
Test Reason : sob Blood Pressure : / mmHG Vent. Rate : 078 BPM Atrial Rate : 078 BPM P-R Int : 146 ms QRS Dur : 072 ms QT Int : 350 ms P-R-T Axes : 053 039 060 degrees QTc Int : 399 ms Normal sinus rhythm Normal ECG When compared with ECG of 04-NOV-2021 21:21, QT has shortened Referred By: Delphine Glez Electronically Signed By:ALVIN PEREZ MD
[2022-09-28 13:07] VITALS: BP 130/87; PULSE 87; RESP 18; TEMP 36.5; O2SAT 98; BMI 17.2
--- NOTE | 2022-09-28 13:07 | ED.SOB ---
HPI - SOB/Dyspnea General Chief Complaint: Upper Respiratory Symptoms Stated Complaint: RECENT PNA,ANTIBIOTICS NOT WORKING PER SNF Time Seen by Provider: 09/28/22 12:59 Source: EMS Mode of arrival: EMS Limitations: no limitations History of Present Illness HPI Narrative: Patient comes to the emergency room from [facility]. Since the patient has had pneumonia for at least 2 weeks, has had 2 courses of antibiotics and according the patient's caretakers she is not improving. Patient denies shortness of breath Related Data Home Medications Medication Instructions Recorded Confirmed acetaminophen 325 mg tablet 650 mg PO Q6H PRN Fever 10/09/21 02/05/22 albuterol sulfate 2.5 mg/3 mL 3 ml inhalation Q12H PRN Shortness 10/09/21 02/05/22 (0.083 %) solution for nebulization Of Breath amitriptyline 10 mg tablet 2 tab PO BEDTIME 10/09/21 02/05/22 atorvastatin 10 mg tablet 1 tab PO DAILY 10/09/21 02/05/22 baclofen 5 mg tablet 1 tab PO TID 10/09/21 02/05/22 bisacodyl 10 mg rectal suppository 10 mg AK DAILY PRN Constipation 10/09/21 02/05/22 chlorhexidine gluconate 0.12 % 15 ml PO MOWEFR 10/09/21 02/05/22 mouthwash cholecalciferol (vitamin D3) 50 50 mcg PO DAILY 10/09/21 02/05/22 mcg (2,000 unit) tablet diazepam 2 mg tablet 0.5 tab PO BID PRN Anxiety 10/09/21 02/05/22 folic acid 1 mg tablet 1 mg PO DAILY 10/09/21 02/05/22 gabapentin 400 mg capsule 2 cap PO TID 10/09/21 02/05/22 lorazepam 1 mg tablet 1 tab PO BID PRN Anxiety 10/09/21 02/05/22 multivitamin 1 tab PO DAILY 10/09/21 02/05/22 oxycodone 5 mg tablet 1 tab PO BID PRN Pain 10/09/21 02/05/22 polyethylene glycol 3350 17 17 g PO BID 10/09/21 02/05/22 gram/dose oral powder (Miralax) quetiapine 100 mg tablet 1 tab PO BEDTIME 10/09/21 02/05/22 quetiapine 50 mg tablet 1 tab PO BEDTIME 10/09/21 02/05/22 sennosides 8.6 mg-docusate sodium 2 tab-cap PO BID 10/09/21 02/05/22 50 mg tablet thiamine HCl (vitamin B1) 100 mg 100 mg PO DAILY 10/09/21 02/05/22 tablet naloxone 4 mg/actuation nasal 4 mg intranasal Q2M PRN 07/05/22 spray (Narcan) Allergies Allergy/AdvReac Type Severity Reaction Status Date / Time diphenhydramine Allergy Unknown Unknown Verified 07/13/22 14:48 [From Benjenniferryjohann] NSAIDS (Non-Steroidal Allergy Unknown Verified 07/13/22 14:48 Anti-Inflamma Review of Systems Review of Systems: Constitutional : No Weight loss, No Fever, No Chills, No Night Sweats, No Fatigue, No Malaise ENT/Mouth : No Hearing loss, No Ear Pain, No Nasal Congestion, No Sinus Pain, No Hoarseness, No sore throat, No Rhinorrhea, No Swallowing Difficulty Eyes: No Eye Pain, No Swelling, No Redness, No Foreign Body, No Discharge, No Vision Changes Cardiovascular : No Chest Pain, No SOB, No Dyspnea on Exertion, No Orthopnea, No Edema, No Palpitations Respiratory : Complaining of cough Gastrointestinal : No Nausea, No Vomiting, No Diarrhea, No Constipation, No abdominal Pain, No Hematochezia, No Melena Genitourinary : no irregular bleeding, No Dysuria, No Urinary Frequency, No Hematuria, No Urinary Incontinence, No Urgency, No Flank Pain, No Urinary Flow Changes, No Hesitancy Musculoskeletal : No joint pain, No Myalgias, No Joint Swelling Skin : No Skin Lesions, No rash Neuro : No Weakness, No Numbness, No Paresthesias, No Loss of Consciousness, No Dizziness, No Headache Psych : No Anxiety/Panic, No Depression, No SI/HI/AH/VH, No Social Issues, Heme/Lymph: No Bruising, No Bleeding,No Lymphadenopathy Endocrine : No Polyuria, No Polydipsia, No Temperature Intolerance [facility] Past Medical History Medical History Asthma Depression Dysarthria Dysarthria Dysphagia Right spastic hemiparesis Smoker TBI (traumatic brain injury) Social History Social History Alcohol intake: former Patient Tobacco Use Status: Current everyday Tobacco user Cigarette Packs Per Day: 3 Smoked in Last 30 Days: Yes Use of substances other than those prescribed or required for medical reasons: No Advance Directives: Yes Advance Directives on File: Yes Advance Directives Date on File: 08/08/22 Physical Exam Vital Signs: Vital Signs: Last Vital Signs Temp 97.5 F 09/28/22 16:59 Pulse 72 09/28/22 16:59 Resp 18 09/28/22 16:59 BP 127/90 H 09/28/22 16:59 Pulse Ox 99 09/28/22 16:59 O2 Del Method Room Air 09/28/22 16:59 BMI result Body Mass Index 17.2 Const: Other: Appearance: Alert. Oriented X3. No acute distress. Eyes: Pupils equal, round and reactive to light. ENT: Pharynx normal. Neck: Normal inspection. Neck supple. No lymph nodes noted. No crepitus CVS: Normal heart rate and rhythm. Pulses normal. Normal S1 and S2 Respiratory: No respiratory distress. Breath sounds normal. No Wheezing. No rales Abdomen: Soft and nontender. No rigidity. No distention. Skin: Skin warm and dry. Normal skin color. Normal skin turgor. Extremities: No lower extremity edema. No Lacerations. No Rash Neuro: Oriented X 3. No motor deficit. No sensory deficit. Moving all extremities. No slurred speech. CN 2 through 12 grossly intact Psych: calm, cooperative, normal affect Course Course Course Narrative: -all patient's labs and imaging pending. Medications Administered Discontinued Medications Generic Name Dose Route Start Last Admin Trade Name Raimundo PRN Reason Stop Dose Admin Potassium Chloride 40 meq 09/28/22 14:48 09/28/22 17:12 Potassium Chloride Packet 20 Meq Packet PO 09/28/22 14:49 Not Given ONCE ONE Medical Decision Making Medical Decision Making MDM Narrative: -CT scan of the chest does not show any pneumonia. -I discussed the patient with Dr. faulkner who takes care of the patient at [facility], patient is on prednisone which explains the elevated white blood cell count. -patient does not need any further antibiotics. Lab Data 09/28/22 14:11 09/28/22 14:11 Labs: Lab Results 09/28/22 09/28/22 09/28/22 Range/Units 14:11 14:11 14:11 WBC 16.2 H (4.8-10.8) X10*3/uL RBC 4.48 (4.20-5.50) X10*6/uL Hgb 13.4 (12.0-16.0) g/dl Hct 41.4 (37.0-47.0) % MCV 92.4 (80.0-98.0) fL MCH 29.9 (27.0-33.0) pg MCHC 32.4 (31.0-35.0) g/dl RDW 13.7 (11.0-16.0) % Plt Count 279 (160-400) X10*3/uL MPV 9.5 (9.4-12.3) fL Immature Gran % (Auto) 0.6 H (0.0-0.4) % Neut % (Auto) 71.8 (45-73) % Lymph % (Auto) 23.1 (20-40) % [place] % (Auto) 3.3 (2-11) % Eos % (Auto) 1.0 (0-4) % Baso % (Auto) 0.2 (0-2) % Lymph # (Auto) 3.7 (1.2-4.9) X10*3/uL [place] # (Auto) 0.5 (0.1-1.2) X10*3/uL Eos # (Auto) 0.2 (0.0-0.4) X10*3/uL Baso # (Auto) 0.0 (0.0-0.2) X10*3/uL Abs Immat Gran (auto) 0.09 H (0.00-0.03) X10*3/uL Absolute Neuts (auto) 11.6 H (2.0-8.3) x10*3/uL Absolute Nucleated RBC 0.000 (0.0-0.012) X10*3/uL Nucleated RBC % (auto) 0.0 (0.0-0.2) /100WBC PT 11.5 (10.0-13.1) SEC INR 1.0 (0.9-1.1) VBG pH (7.32-7.43) VBG pCO2 mmHg VBG pO2 mmHg VBG HCO3 (22-26) mmol/L VBG O2 Saturation % VBG Base Excess mmol/L Sodium 144 (135-145) mmol/L Potassium 3.1 L D (3.3-5.1) mmol/L Chloride 106 (96-108) mmol/L Carbon Dioxide 30 H (22-29) mmol/L Anion Gap 11 L (12-20) BUN 13 (9-16) mg/dL Creatinine 0.76 (0.5-1.4) mg/dL Estim Creat Clear Calc 76.7 Estimated GFR > 60 Random Glucose 90 (60-115) mg/dL Lactic Acid (0.5-2.0) mmol/L Calcium 9.6 (8.4-10.2) mg/dL Total Bilirubin 0.8 (0.0-1.0) mg/dL Direct Bilirubin 0.2 (0.0-0.5) mg/dL AST 15 (5-31) U/L ALT 25 (0-31) U/L Alkaline Phosphatase 61 (39-117) U/L B-Natriuretic Peptide (<100) pg/mL Total Protein 7.1 (6.5-8.0) g/dL Albumin 4.3 (3.5-5.0) g/dL COVID-19 (NADIRA) (Negative) COVID-19 Clin Com Influenza Type A (OLIVIA) (Negative) Influenza Type B (OLIVIA) (Negative) Influenza A & B Note 09/28/22 09/28/22 09/28/22 Range/Units 14:11 14:11 14:11 WBC (4.8-10.8) X10*3/uL RBC (4.20-5.50) X10*6/uL Hgb (12.0-16.0) g/dl Hct (37.0-47.0) % MCV (80.0-98.0) fL MCH (27.0-33.0) pg MCHC (31.0-35.0) g/dl RDW (11.0-16.0) % Plt Count (160-400) X10*3/uL MPV (9.4-12.3) fL Immature Gran % (Auto) (0.0-0.4) % Neut % (Auto) (45-73) % Lymph % (Auto) (20-40) % [place] % (Auto) (2-11) % Eos % (Auto) (0-4) % Baso % (Auto) (0-2) % Lymph # (Auto) (1.2-4.9) X10*3/uL [place] # (Auto) (0.1-1.2) X10*3/uL Eos # (Auto) (0.0-0.4) X10*3/uL Baso # (Auto) (0.0-0.2) X10*3/uL Abs Immat Gran (auto) (0.00-0.03) X10*3/uL Absolute Neuts (auto) (2.0-8.3) x10*3/uL Absolute Nucleated RBC (0.0-0.012) X10*3/uL Nucleated RBC % (auto) (0.0-0.2) /100WBC PT (10.0-13.1) SEC INR (0.9-1.1) VBG pH (7.32-7.43) VBG pCO2 mmHg VBG pO2 mmHg VBG HCO3 (22-26) mmol/L VBG O2 Saturation % VBG Base Excess mmol/L Sodium (135-145) mmol/L Potassium (3.3-5.1) mmol/L Chloride (96-108) mmol/L Carbon Dioxide (22-29) mmol/L Anion Gap (12-20) BUN (9-16) mg/dL Creatinine (0.5-1.4) mg/dL Estim Creat Clear Calc Estimated GFR Random Glucose (60-115) mg/dL Lactic Acid (0.5-2.0) mmol/L Calcium (8.4-10.2) mg/dL Total Bilirubin (0.0-1.0) mg/dL Direct Bilirubin (0.0-0.5) mg/dL AST (5-31) U/L ALT (0-31) U/L Alkaline Phosphatase (39-117) U/L B-Natriuretic Peptide < 10 (<100) pg/mL Total Protein (6.5-8.0) g/dL Albumin (3.5-5.0) g/dL COVID-19 (NADIRA) Negative (Negative) COVID-19 Clin Com See Note Influenza Type A (OLIVIA) Negative (Negative) Influenza Type B (OLIVIA) Negative (Negative) Influenza A & B Note See Note 09/28/22 09/28/22 Range/Units 14:13 14:16 WBC (4.8-10.8) X10*3/uL RBC (4.20-5.50) X10*6/uL Hgb (12.0-16.0) g/dl Hct (37.0-47.0) % MCV (80.0-98.0) fL MCH (27.0-33.0) pg MCHC (31.0-35.0) g/dl RDW (11.0-16.0) % Plt Count (160-400) X10*3/uL MPV (9.4-12.3) fL Immature Gran % (Auto) (0.0-0.4) % Neut % (Auto) (45-73) % Lymph % (Auto) (20-40) % [place] % (Auto) (2-11) % Eos % (Auto) (0-4) % Baso % (Auto) (0-2) % Lymph # (Auto) (1.2-4.9) X10*3/uL [place] # (Auto) (0.1-1.2) X10*3/uL Eos # (Auto) (0.0-0.4) X10*3/uL Baso # (Auto) (0.0-0.2) X10*3/uL Abs Immat Gran (auto) (0.00-0.03) X10*3/uL Absolute Neuts (auto) (2.0-8.3) x10*3/uL Absolute Nucleated RBC (0.0-0.012) X10*3/uL Nucleated RBC % (auto) (0.0-0.2) /100WBC PT (10.0-13.1) SEC INR (0.9-1.1) VBG pH 7.39 (7.32-7.43) VBG pCO2 53 mmHg VBG pO2 28 mmHg VBG HCO3 33 H (22-26) mmol/L VBG O2 Saturation 41.0 % VBG Base Excess 7.0 mmol/L Sodium (135-145) mmol/L Potassium (3.3-5.1) mmol/L Chloride (96-108) mmol/L Carbon Dioxide (22-29) mmol/L Anion Gap (12-20) BUN (9-16) mg/dL Creatinine (0.5-1.4) mg/dL Estim Creat Clear Calc Estimated GFR Random Glucose (60-115) mg/dL Lactic Acid 1.1 (0.5-2.0) mmol/L Calcium (8.4-10.2) mg/dL Total Bilirubin (0.0-1.0) mg/dL Direct Bilirubin (0.0-0.5) mg/dL AST (5-31) U/L ALT (0-31) U/L Alkaline Phosphatase (39-117) U/L B-Natriuretic Peptide (<100) pg/mL Total Protein (6.5-8.0) g/dL Albumin (3.5-5.0) g/dL COVID-19 (NADIRA) (Negative) COVID-19 Clin Com Influenza Type A (OLIVIA) (Negative) Influenza Type B (OLIVIA) (Negative) Influenza A & B Note Discharge Plan Discharge Clinical Impression: Bronchitis Patient Disposition: Home, Self-Care Instructions: Acute Bronchitis (ED) Additional Instructions: Please follow-up with your primary care physician tomorrow. If you have any worsening or new symptoms, please return to the emergency room or call 911 Prescriptions: No Action multivitamin Tablet 1 tab PO DAILY acetaminophen 325 mg Tablet 650 mg PO Q6H PRN (Reason: Fever) albuterol sulfate 2.5 mg /3 mL (0.083 %) solution for nebulization 3 ml inhalation Q12H PRN (Reason: Shortness Of Breath) atorvastatin 10 mg tablet 1 tab PO DAILY sennosides-docusate sodium [DOK Plus] 8.6-50 mg Tablet 2 tab-cap PO BID gabapentin 400 mg capsule 2 cap PO TID thiamine HCl (vitamin B1) 100 mg Tablet 100 mg PO DAILY quetiapine 100 mg tablet 1 tab PO BEDTIME amitriptyline 10 mg tablet 2 tab PO BEDTIME diazepam 2 mg tablet 0.5 tab PO BID PRN (Reason: Anxiety) bisacodyl 10 mg Suppository 10 mg AK DAILY PRN (Reason: Constipation) folic acid 1 mg Tablet 1 mg PO DAILY lorazepam 1 mg tablet 1 tab PO BID PRN (Reason: Anxiety) polyethylene glycol 3350 [Miralax] 17 gram/dose Powder 17 g PO BID oxycodone 5 mg tablet 1 tab PO BID PRN (Reason: Pain) chlorhexidine gluconate 0.12 % mouthwash 15 ml PO MOWEFR quetiapine 50 mg tablet 1 tab PO BEDTIME cholecalciferol (vitamin D3) 50 mcg (2,000 unit) Tablet 50 mcg PO DAILY baclofen 5 mg tablet 1 tab PO TID naloxone [Narcan] 4 mg/actuation spray,non-aerosol 4 mg intranasal Q2M PRN Rx Instructions: spray 1 dose into ONE nostril; alternate nostrils w each dose until help arrives
[2022-09-28 14:20] LABS: Venous Blood Gas Refer to POC result
[2022-09-28 14:21] LABS: MANUAL DIFF FLAG NO
[2022-09-28 14:22] LABS: Basophils Percent Auto 0.2 % (0-2); Eosinophils Absolute Auto 0.2 X10*3/uL (0.0-0.4); Hematocrit 41.4 % (37.0-47.0); Hemoglobin 13.4 g/dl (12.0-16.0); Imm Gran Abs Auto 0.09 X10*3/uL (0.00-0.03); Imm Gran Pct Auto 0.6 % (0.0-0.4); Lymphocytes Absolute Auto 3.7 X10*3/uL (1.2-4.9); Lymphocytes Percent Auto 23.1 % (20-40); Mean Corpuscular HGB Conc 32.4 g/dl (31.0-35.0); Mean Corpuscular Hemoglobin 29.9 pg (27.0-33.0); Mean Corpuscular Volume 92.4 fL (80.0-98.0); Mean Platelet Volume 9.5 fL (9.4-12.3); Monocytes Absolute Auto 0.5 X10*3/uL (0.1-1.2); Monocytes Percent Auto 3.3 % (2-11); Neutrophils Absolute Auto 11.6 x10*3/uL (2.0-8.3); Neutrophils Percent Auto 71.8 % (45-73); Platelet Count 279 X10*3/uL (160-400); Red Blood Count 4.48 X10*6/uL (4.20-5.50); Red Cell Distribution Width 13.7 % (11.0-16.0); White Blood Count 16.2 X10*3/uL (4.8-10.8)
[2022-09-28 14:23] LABS: VBG HCO3 33 mmol/L (22-26); VBG pCO2 53 mmHg; VBG pH 7.39 (7.32-7.43); VBG pO2 28 mmHg
[2022-09-28 14:27] LABS: Prothrombin Time 11.5 SEC (10.0-13.1)
[2022-09-28 14:36] LABS: Lactic Acid 1.1 mmol/L (0.5-2.0)
[2022-09-28 14:39] LABS: Alanine Aminotransferase 25 U/L (0-31); Albumin Level 4.3 g/dL (3.5-5.0); Alkaline Phosphatase 61 U/L (39-117); Anion Gap 11 (12-20); Aspartate Amino Transferase 15 U/L (5-31); Bilirubin Direct 0.2 mg/dL (0.0-0.5); Bilirubin Total 0.8 mg/dL (0.0-1.0); Blood Urea Nitrogen 13 mg/dL (9-16); Calcium 9.6 mg/dL (8.4-10.2); Carbon Dioxide 30 mmol/L (22-29); Chloride 106 mmol/L (96-108); Creatinine Clr Calc Pharmacy 76.7; Estimated Glomerular Filt Rate > 60; Glucose Random 90 mg/dL (60-115); Potassium 3.1 mmol/L (3.3-5.1); Sodium 144 mmol/L (135-145); Total Protein 7.1 g/dL (6.5-8.0)
[2022-09-28 14:44] LABS: COVID-19 Test Negative (Negative); IDNOW Serial# BCCEAD1C
[2022-09-28 14:45] LABS: B Type Natriuretic Peptide < 10 pg/mL (<100)
[2022-09-28 15:19] LABS: IDNOW Serial# 08D9AD1C; Influenza A Negative (Negative); Influenza B2 Negative (Negative)
[2022-09-28 16:59] VITALS: BP 127/90; PULSE 72; RESP 18; TEMP 36.4; O2SAT 99
--- NOTE | 2022-09-28 17:18 | PC.NURSE ---
PT REQUESTING TO BE TRANSFERRED BACK TO [facility]. STS ONGOING CHEST TIGHTNESS, LS CLEAR, DIM THROUGHOUT.
== END 2022-09-28 19:22 | disposition home or self-care (01) ==
PROVIDERS: Emergency Provider Emergency Medicine
DX: J40 Bronchitis, not specified as acute or chronic (principal); Z20.822 Contact with and (suspected) exposure to COVID-19; F17.210 Nicotine dependence, cigarettes, uncomplicated; Z87.820 Personal history of traumatic brain injury; Z79.899 Other long term (current) drug therapy; Z79.02 Long term (current) use of antithrombotics/antiplatelets
CPT/HCPCS: 36415; 71045; 71250; 80048; 80076; 82803; 83605; 83880; 85025; 85610; 87040; 87147; 87205; 87502; 87635; 93005; 99284; 99285

== ENCOUNTER 2022-11-11 13:02 | Outpatient (REF) | payer MEDICAID, SELFPAY ==
--- NOTE | ~2022-11-11 | XR_ITS ---
EXAMINATION: XR CHEST CLINICAL INFORMATION: Cough. COMPARISON: None available. TECHNIQUE: 2 views of the chest were obtained. FINDINGS: No significant abnormality is noted involving the heart, lungs, mediastinum, bony thorax or soft tissues. XR/XR chest 2V IMPRESSION: Unremarkable chest examination.
== END 2022-11-11 13:03 | disposition home or self-care (01) ==
LOC: HO.XRAY 13:02
PROVIDERS: PCP Hospitalist; Visit Provider Hospitalist
DX: R05.9 Cough, unspecified (principal)
CPT/HCPCS: 71046

== ENCOUNTER 2022-12-02 10:53 | Outpatient (AMB) | payer MEDICAID, SELFPAY ==
--- NOTE | 2022-12-02 11:07 | MHC.OFFVIS ---
Intake Vital Signs 12/02/22 11:28 Height 5 ft 7 in Weight 108 lb 0.424 oz BMI 16.9 BP 124/80 Intake Visit Reasons: EMB/ultra sound follow up Intake Note: The patient agreed to use of a medical collector during this encounter. Scribed for ALVERTO Nuñez by Vanessa Cox medical collector, on 12/02/2022 at 11:45 am EST Quilt Stuffer Required: No Information Interpreted: non-clinical & clinical Motorcycle Subassembler: Motorcycle Subassembler Present (Kristin Hi ASHANTI) Accompanied by: Employee Allergies diphenhydramine [From Benadryl] Allergy (Unknown, Verified 12/02/22 11:28) Unknown NSAIDS (Non-Steroidal Anti-Inflamma Allergy (Verified 12/02/22 11:28) Unknown HPI HPI Comments History of Present Illness Details The patient is here today to discuss test results and possible endometrial biopsy for AUB to rule out any pathology including atypical, hyperplasia or cancer cells of the uterus. She is accompanied by her vocational director. She reports 2 episodes of irregular bleeding. She had 2 periods back to back in June. She also admits to bleeding for 12 days straight last month. Her vocational director states the patient did not bleed for 12 days, it is unclear if patient bled that long. Her menses are typically monthly and last approximately 3-4 days. Not UTD on mammogram. Does not want to have one done. Denies pain. Denies use of blood thinners. Poor historian. Medical hx is unclear. Patient called and spoke with mother during visit and asked that i speak with her regarding IVC filter noted on CT scan, she is unaware of any vascular filters or implants. 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 Insomnia, unspecified Nausea Opioid use, unspecified, uncomplicated Presence of other vascular implants and grafts Primary osteoarthritis, right shoulder Pure hypercholesterolemia, unspecified Retention of urine, unspecified Right spastic hemiparesis Smoker TBI (traumatic brain injury) Vitamin D deficiency, unspecified Social History Housing: Group Home Alcohol intake: former Patient Tobacco Use Status: Current everyday Tobacco user Cigarette Packs Per Day: 3 Advance Directives Date on File: 08/08/22 Female Reproductive History Menstrual Date of last menstrual period: 11/19/22 Review of Systems Const All systems reviewed & are unremarkable except as noted in HPI and below Reports abnormal menses Physical Exam Vital Signs: Last Vital Signs BP 124/80 12/02/22 11:28 BMI result Body Mass Index 16.9 Const General: cooperative, healthy appearing, no acute distress, well developed and alert Limitations: wheelchair Neuro Speech: Other speech findings present (Neuro) (slurred ) Results AMB Test Urine AMB Test Urine Negative Last Edit by Kristin Hi CMA on 12/02/22 11:41 Results Reviewed Results Reviewed: Laboratory Last Values Tst Clinic Negative 12/02/22 11:41 08/01/22 US IMPRESSION: No significant abnormality is seen. A cause for the patient's abnormal uterine bleeding has not been found. ? 08/05/22 CT FINDINGS: LUNG BASES: Minimal posterior dependent atelectasis similar to previous ? LIVER, GALLBLADDER, AND BILIARY TREE: The common duct remains mildly dilated at 9 mm period there is minimal intrahepatic biliary dilatation not seen previously gallbladder unremarkable..? PANCREAS: Unremarkable.? SPLEEN: Unremarkable.? ADRENAL GLANDS: Unremarkable.? KIDNEYS AND URETERS: There is a large cyst in the upper pole of the left kidney unchanged. Small cyst in the cortex of left kidney measuring approximately 12 mm unchanged. Additional small cysts noted in the lower pole the right kidney unchanged. No follow-up necessary for the cyst. No hydronephrosis. No stones. BLADDER: Unremarkable.? GASTROINTESTINAL TRACT: Appendix not visualized. No inflammatory changes in the right lower quadrant. Large bowel are unremarkable. Small bowel normal. Stomach normal.? ABDOMINAL WALL: No significant hernia is appreciated.? LYMPH NODES: d VASCULAR: IVC filter remains in place unchanged. Mild calcific atherosclerotic disease unchanged. Axial PELVIC VISCERA: Small 1.5 mm simple cyst in the right ovary. No follow-up necessary. Uterus unremarkable. OSSEOUS STRUCTURES: Unremarkable.? IMPRESSION: 1.? No definite acute abnormality. 2.? Mild dilatation of the common duct change and minimal intrahepatic biliary dilatation not seen previously. Correlate with liver function tests. 3.? Stable renal cysts. No follow-up necessary 4.? IVC filter unchanged. 5.? Mild calcific atherosclerotic disease unchanged. 6.? Small simple cyst in the right ovary. No follow-up necessary. 7.? Appendix not visualized. No inflammatory changes in the right lower quadrant. ? Fleischner guidelines were followed. Assessment & Plan Assessment & Plan (1) Abnormal uterine bleeding (AUB): Code(s): N93.9 - Abnormal uterine and vaginal bleeding, unspecified Plan: Reviewed test results with patient. Recommended MD consult due to unclear medical hx. Records request from PCP and [facility] regarding data on implanted devices. Encouraged mammogram. Mammogram ordered today. RTO for MD consult after review of medical records. (2) Tobacco abuse: Code(s): Z72.0 - Tobacco use Plan: Encouraged cessation. Orders: Orders MM tomosynthesis screening BI Today Z12.31 - Encounter for screening mammogram for malignant neoplasm of breast AMB HCG Urine Test Today Z32.02 - Encounter for test, result negative Coding Level of Care Code Est Pt Level 3 (74701) Diagnoses Abnormal uterine bleeding (AUB) N93.9 Tobacco abuse Z72.0
[2022-12-02 11:28] VITALS: BP 124/80; BMI 16.9
== END 2022-12-02 12:10 | disposition home or self-care (01) ==
LOC: HO.HWS 10:53
PROVIDERS: PCP Hospitalist; Visit Provider Advanced Practice Midwife
DX: N93.9 Abnormal uterine and vaginal bleeding, unspecified (principal); Z72.0 Tobacco use; Z32.02 Encounter for pregnancy test, result negative
CPT/HCPCS: 99213

== ENCOUNTER → 2022-12-02 10:53 | Outpatient (BNVA) | payer MEDICAID, SELFPAY | PROVIDERS: PCP Hospitalist; Visit Provider Advanced Practice Midwife | DX: N93.9 Abnormal uterine and vaginal bleeding, unspecified (principal); F17.210 Nicotine dependence, cigarettes, uncomplicated | CPT/HCPCS: 81025; 99212 ==

== ENCOUNTER 2022-12-16 10:17 | Outpatient (REF) | payer MEDICAID, SELFPAY ==
--- NOTE | ~2022-12-16 | FL_ITS ---
EXAMINATION: XR BARIUM SWALLOW CLINICAL INFORMATION: Stroke. History of subdural hematoma. Paralyzed right upper extremity. COMPARISON: None available. TECHNIQUE: Routine modified barium swallow was performed under lateral fluoroscopy with patient sitting in presence of speech therapist. FINDINGS: On oral administration of solid, semisolid food coated with barium and crackers, there is normal propagation of bolus from the oral cavity through the pharynx into esophagus without any laryngeal penetration or aspiration. No retention of food in the valleculae and piriform sinuses. On oral administration of thin barium there is a single episode of laryngeal penetration. Patient cleared trachea with coughing. On subsequent administration of thin barium, no laryngeal penetration or aspiration seen. FLUOROSCOPY TIME: 2.6 minutes. DOSE AREA PRODUCT: 1.375 uGy-m2 (microgray-meter squared). FL/FL barium swallow modified IMPRESSION: Single episode of laryngeal penetration with thin barium not seen on subsequent images. The rest of the modified barium swallow is unremarkable.
--- NOTE | 2022-12-16 16:03 | MHC.SL.IMP ---
Date of Plan of Treatment: 12/16/22 Onset of Symptoms/Illness: 11/18/22 Date Treatment Started: 12/16/22 Admitting Diagnosis: Subdural hemmorhage Primary Speech & Language Diagnosis: R13.12 Oropharyngeal Phase Dysphagia Secondary Speech & Language Diagnosis: R47.1 Dysarthria Reason for Today's Visit: 90562 Modified Barium Swallow Study Comments: Pre-evaluation Dietary Consistencies: Regular Food and Liquid Trials: Oral Impairment: Lip Closure: 1=Interlabial escape; no progression to anterior tip Oral Impairment: Tongue Control During Bolus Hold: 0=Cohesive bolus between tongue to palatal seal Oral Impairment: Bolus Preparation/Mastication: 1=Slow prolonged chewing/mashing with complete re-collection Oral Impairment: Bolus Transport/Lingual Motion: 0=Brisk tongue motion Oral Impairment: Oral Residue: 2=Residue collection on oral structures Oral Impairment:Initiation of Pharyngeal Swallow: 3=Bolus head in pyriforms Pharyngeal Impairment: Soft Palate Elevation: 0=No bolus between soft palate (SP)/pharyngeal wall (PW) Pharyngeal Impairment: Laryngeal Elevation: 1=Partial thyroid cartilage/arytenoids to epiglottic petiole movement Pharyngeal Impairment: Anterior Hyoid Excursion: 1=Partial anterior movement Pharyngeal Impairment: Epiglottic Movement: 1=Partial inversion Pharyngeal Impairment: Laryngeal Vestibular Closure:: 1=Incomplete: narrow column air/contrast in laryngeal vestibule Pharyngeal Impairment: Pharyngeal Stripping Wave: 1=Present: diminished Pharyngeal Impairment: Pharyngeal Contraction: Did not test Pharyngeal Impairment: Pharyngoesophageal Segment Openin=Partial distention/partial duration: partial obstruction of flow Pharyngeal Impairment: Tongue Base (TB) Retraction: 2=Narrow column of contrast/air between TB and posterior PW Pharyngeal Impairment: Pharyngeal Residue: 2=Collection of residue within or on pharyngeal structures Pharyngeal Impairment: Esophageal Clearance Upright Position: Did not test Impressions and Recommendations Clinical Observations: Time-out: performed at 10:25 Evaluation Start: 10:30; Stop: 10:50 Patient Positioning: Seated 70-90 degrees Viewing Planes: LATERAL ONLY Contrast: MBSImP? Standardized Protocol using commercially prepared, standardized Barium viscosities, including: Varibar? THIN LIQUID (40% w/v, <15 cps) , Varibar? NECTAR (40% w/v, <150-450 cps) , Varibar? PUDDING (40% w/v, <4309-7896 cps) , 1/2 Shortbread Cookie (1 x1 x.25 ) MBSImP ID: [id number] Results: Lip closure for intraoral bolus containment resulted in interlabial escape, without progression to the anterior lip. Tongue control during bolus hold maintained a cohesive bolus held between tongue to palate seal. Bolus preparation and mastication resulted in slow, prolonged chewing/mashing but with complete re-collection. Bolus transport/lingual motion was with brisk tongue motion. Oral residue was a collection on oral structures. Initiation of the pharyngeal swallow occurred when the bolus head was in the pyriform sinuses. Soft palate elevation resulted in no bolus between the soft palate and the pharyngeal wall. Laryngeal elevation was decreased, with partial superior movement of the thyroid cartilage/partial approximation of the arytenoids to the epiglottic petiole. Anterior hyoid excursion demonstrated partial anterior movement. Epiglottic movement resulted in partial inversion. Laryngeal vestibular closure was incomplete, with a narrow column of air/contrast noted within the laryngeal vestibule at the height of the swallow. Pharyngeal stripping wave was present, but diminished. Pharyngeal contraction could not be determined due to logistical reasons not related to physiologic impairment. Pharyngoesophageal segment opening demonstrated partial distension/partial duration, with partial obstruction of bolus flow. Tongue base retraction allowed a narrow column of contrast or air between the retracted tongue base and the posterior pharyngeal wall. Pharyngeal residue was a collection of residue within or on pharyngeal structures. Esophageal clearance in the upright position could not be assessed due to logistical reasons not related to physiologic impairment. Oral Impairment Score: 6 Pharyngeal Impairment Score: 10 (absence of score, component 13) Esophageal Impairment Score: --- (absence of score, component 17) Laryngeal Penetration and Aspiration: Aspiration was observed in today's study. Thin Contrast with pharyngeal residue present entered the airway, passed below the vocal folds, and no effort was made to eject. Cued efforts to cough were unsuccessful in removing aspirated contrast from the airway. ASSESSMENT: The patient's performance in today's study indicated impairment in swallowing. - Initiation of the pharyngeal swallow contributed to aspiration and penetration. - Laryngeal elevation contributed to aspiration and pharyngeal residue. - Anterior hyoid excursion contributed to aspiration and pharyngeal residue. - Epiglottic movement contributed to pharyngeal residue. - Tongue base retraction contributed to pharyngeal residue. Procedural Notes: Ana self-administered Thin Contrast and cued to use a bolus hold prior to the swallow. Bolus hold was complete. Once cued, the bolus head was present in the pyriform sinus prior to initiation of the swallow. Insufficient laryngeal elevation, and hyoid excursion resulted in flash penetration into the laryngeal vestibule that was spontaneously removed. Administration of nectar-thick constrast eliminated penetration. Puree contrast was administered via spoon. Trace oral and pharyngeal contrast was present, but cleared with self-initiated secondary swallow. Ana was administered Ground solids mixed with contrast via spoon. Oral and pharyngeal residue was increased with this texture. Secondary swallow was not successful in clearing contrast from the vallecular space. Ana was administered a regular solid coated in contrast. Oral preparation was mildly delayed with complete containment of the bolus. Collection of residue was present in the vallecular space and posterior pharyngeal wall. Secondary swallow reduced contrast, with collection remaining in the vallecular space. Ana self-administered Thin Liquid contrast with the bolus head present in the pyriform sinus prior to swallow initiation. With residue remaining in the vallecular space a trace amount of contrast entered the airway, passed below the vocal folds and no effort was made to eject. Regular solid condition was repeated, with residue present in the vallecular space after spontaneous secondary swallow. Thin contrast was self-administered with cues for small sip size resulting in no penetration or aspiration of contrast into the airway. Clinician Assessment: Ana presents with an overall impaired swallow profile resulting in delayed swallow initiation for liquids and pharyngeal residue with solids. These components place her at risk of impaired airway protection. Trace contrast was aspirated today without a cough reflex. Ana will require diet modifications and compensatory strategies to reduce her risk of recurrent aspiration and subsequent pneumonia. Her limited mobility increases her risk of pneumonia. She elects not to modify her diet, but is supportive of the proposed compensatory strategies recommended. Liquid Intake Recommendation: Thin Dietary Recommendations: Regular Medication Administration: Whole with Puree Please contact the pharmacy regarding appropriate crushable or liquid drug formulations that are available whenever modified delivery is recommended. Supervision during eating and or drinking: PO with SHINGLE TRIMMER Recommendation for Speech Therapy: Timeline to reassess: PRN Clinician - Supplemental, Miscellaneous Communication: Please note, It is important to note MBSS objective studies are snapshots in time and patient function might vary with factors such as time of day or concomitant medical conditions. For this reason, the final treatment plan for this patient should rest with their medical care team. Additional recommendations should be considered with the totality of the patient in mind. Thank for the opportunity to participate in the care of this patient. If you have any questions about the content of this report, please contact the [facility] at [facility]. Icer Hand Clinician/Clinical Fellow: No Supervisory Statement: Yes Speech Language Pathologist: Sesar Pardo M.A., CCC-SHINGLE TRIMMER
--- NOTE | 2022-12-16 16:15 | MHC.SL.IMP ---
Date of Plan of Treatment: 12/16/22 Onset of Symptoms/Illness: 11/18/22 Date Treatment Started: 12/16/22 Admitting Diagnosis: Subdural hemmorhage Primary Speech & Language Diagnosis: R13.12 Oropharyngeal Phase Dysphagia Secondary Speech & Language Diagnosis: R47.1 Dysarthria Reason for Today's Visit: 13606 Modified Barium Swallow Study Comments: Pre-evaluation Dietary Consistencies: Regular Oral Motor Exam Facial Symmetry: Normal for Patient Food and Liquid Trials: Oral Impairment: Lip Closure: 1=Interlabial escape; no progression to anterior tip Oral Impairment: Tongue Control During Bolus Hold: 0=Cohesive bolus between tongue to palatal seal Oral Impairment: Bolus Preparation/Mastication: 1=Slow prolonged chewing/mashing with complete re-collection Oral Impairment: Bolus Transport/Lingual Motion: 0=Brisk tongue motion Oral Impairment: Oral Residue: 2=Residue collection on oral structures Oral Impairment:Initiation of Pharyngeal Swallow: 3=Bolus head in pyriforms Pharyngeal Impairment: Soft Palate Elevation: 0=No bolus between soft palate (SP)/pharyngeal wall (PW) Pharyngeal Impairment: Laryngeal Elevation: 1=Partial thyroid cartilage/arytenoids to epiglottic petiole movement Pharyngeal Impairment: Anterior Hyoid Excursion: 1=Partial anterior movement Pharyngeal Impairment: Epiglottic Movement: 1=Partial inversion Pharyngeal Impairment: Laryngeal Vestibular Closure:: 1=Incomplete: narrow column air/contrast in laryngeal vestibule Pharyngeal Impairment: Pharyngeal Stripping Wave: 1=Present: diminished Pharyngeal Impairment: Pharyngeal Contraction: Did not test Pharyngeal Impairment: Pharyngoesophageal Segment Openin=Partial distention/partial duration: partial obstruction of flow Pharyngeal Impairment: Tongue Base (TB) Retraction: 2=Narrow column of contrast/air between TB and posterior PW Pharyngeal Impairment: Pharyngeal Residue: 2=Collection of residue within or on pharyngeal structures Pharyngeal Impairment: Esophageal Clearance Upright Position: Did not test Impressions and Recommendations Clinical Observations: Time-out: performed at 10:25 Evaluation Start: 10:30; Stop: 10:50 Patient Positioning: Seated 70-90 degrees Viewing Planes: LATERAL ONLY Contrast: MBSImP? Standardized Protocol using commercially prepared, standardized Barium viscosities, including: Varibar? THIN LIQUID (40% w/v, <15 cps) , Varibar? NECTAR (40% w/v, <150-450 cps) , Varibar? PUDDING (40% w/v, <0447-8251 cps) , 1/2 Shortbread Cookie (1 x1 x.25 ) MBSImP ID: [id number] MBSImP Results: Lip closure for intraoral bolus containment resulted in interlabial escape, without progression to the anterior lip. Tongue control during bolus hold maintained a cohesive bolus held between tongue to palate seal. Bolus preparation and mastication resulted in slow, prolonged chewing/mashing but with complete re-collection. Bolus transport/lingual motion was with brisk tongue motion. Oral residue was a collection on oral structures. Initiation of the pharyngeal swallow occurred when the bolus head was in the pyriform sinuses. Soft palate elevation resulted in no bolus between the soft palate and the pharyngeal wall. Laryngeal elevation was decreased, with partial superior movement of the thyroid cartilage/partial approximation of the arytenoids to the epiglottic petiole. Anterior hyoid excursion demonstrated partial anterior movement. Epiglottic movement resulted in partial inversion. Laryngeal vestibular closure was incomplete, with a narrow column of air/contrast noted within the laryngeal vestibule at the height of the swallow. Pharyngeal stripping wave was present, but diminished. Pharyngeal contraction could not be determined due to logistical reasons not related to physiologic impairment. Pharyngoesophageal segment opening demonstrated partial distension/partial duration, with partial obstruction of bolus flow. Tongue base retraction allowed a narrow column of contrast or air between the retracted tongue base and the posterior pharyngeal wall. Pharyngeal residue was a collection of residue within or on pharyngeal structures. Esophageal clearance in the upright position could not be assessed due to logistical reasons not related to physiologic impairment. Oral Impairment Score: 6 Pharyngeal Impairment Score: 10 (absence of score, component 13) Esophageal Impairment Score: --- (absence of score, component 17) Laryngeal Penetration and Aspiration: Aspiration was observed in today's study. Thin Contrast with pharyngeal residue present entered the airway, passed below the vocal folds, and no effort was made to eject. Cued efforts to cough were unsuccessful in removing aspirated contrast from the airway. ASSESSMENT: The patient's performance in today's study indicated impairment in swallowing. - Initiation of the pharyngeal swallow contributed to aspiration and penetration. - Laryngeal elevation contributed to aspiration and pharyngeal residue. - Anterior hyoid excursion contributed to aspiration and pharyngeal residue. - Epiglottic movement contributed to pharyngeal residue. - Tongue base retraction contributed to pharyngeal residue. Procedural Notes: Ana self-administered Thin Contrast and cued to use a bolus hold prior to the swallow. Bolus hold was complete. Once cued, the bolus head was present in the pyriform sinus prior to initiation of the swallow. Insufficient laryngeal elevation, and hyoid excursion resulted in flash penetration into the laryngeal vestibule that was spontaneously removed. Administration of nectar-thick constrast eliminated penetration. Puree contrast was administered via spoon. Trace oral and pharyngeal contrast was present, but cleared with self-initiated secondary swallow. Ana was administered Ground solids mixed with contrast via spoon. Oral and pharyngeal residue was increased with this texture. Secondary swallow was not successful in clearing contrast from the vallecular space. Ana was administered a regular solid coated in contrast. Oral preparation was mildly delayed with complete containment of the bolus. Collection of residue was present in the vallecular space and posterior pharyngeal wall. Secondary swallow reduced contrast, with collection remaining in the vallecular space. Ana self-administered Thin Liquid contrast with the bolus head present in the pyriform sinus prior to swallow initiation. With residue remaining in the vallecular space a trace amount of contrast entered the airway, passed below the vocal folds and no effort was made to eject. Regular solid condition was repeated, with residue present in the vallecular space after spontaneous secondary swallow. Thin contrast was self-administered with cues for small sip size resulting in no penetration or aspiration of contrast into the airway. Clinician Assessment: Ana presents with an overall impaired swallow profile resulting in delayed swallow initiation for liquids and pharyngeal residue with solids. These components place her at risk of impaired airway protection. Trace contrast was aspirated today without a cough reflex. Ana will require diet modifications and compensatory strategies to reduce her risk of recurrent aspiration and subsequent pneumonia. Her limited mobility increases her risk of pneumonia. She elects not to modify her diet, but is supportive of the proposed compensatory strategies recommended. Liquid Intake Recommendation: Thin Liquid Intake Strategies: Dietary Recommendations: Regular Medication Administration: Whole with Puree Please contact the pharmacy regarding appropriate crushable or liquid drug formulations that are available whenever modified delivery is recommended. Supervision during eating and or drinking: PO with FLANGING MACHINE OPERATOR Recommendation for Speech Therapy: Text Comment: Frequency/Duration: Date Range for Service Requested: Timeline to reassess: PRN PLAN: Today?s results were reviewed with the patient with her caregiver present and a written summary of the results of today?s study were provided to her caregiver. Intake Recommendations: Route: PO Diet Grade: IDDSI Levels: 7-Regular Liquid Consistencies: Thin Post-Study Functional Oral Intake Scale (FOIS): 6- Total oral intake with no special preparation, but must avoid specific foods or liquid items FLANGING MACHINE OPERATOR initially recommend Soft and Bite-sized Solids (L6) and [place] Thick Liquids (L2), however the Pt was vehemently opposed. I explained to her the risk associated with recurrent aspiration and stated she would still not be willing to change her diet. I then proposed to her recommendations for safe swallow strategies based on today?s finding with the condition that they may not consistently prevent the risk of aspiration. Recommendations for Regular Solids (L7) and Thin Liquids (L0) include; small bites/sips, multiple swallows per solid bolus prior to liquid intake, avoid consecutive sips and straws. Standard aspiration precautions apply per facility guidelines. Recommend the Pt continue to work with treating FLANGING MACHINE OPERATOR on training of strategies and additional interventions at their discretion. Pt will benefit from continued monitoring of respiratory status and repeat MBS in 6mos.-1yr. if problems worsen or persist. Therapy Recommendations: Therapy will be continued The following compensatory strategies and/or therapeutic exercises will be part of the upcoming therapy/management plan: Bolus Volume Change No Straws Prognosis for Improvement: The prognosis for the patient to meet nutritional needs by mouth is good based on degree of impairment, stimulability for treatment, level of motivation, support system. Patient's Personal Goals: Pt wants to remain on Regular Solids and Thin Liquids. Hoop Punch And Coiler Operator Helper Goals: ? The patient will tolerate the least restrictive diet with a safe/efficient swallow to maintain adequate nutrition and hydration. ? The patient and/or family will participate in further education for swallowing goals. Short Term Goals: ? Diet - The patient will tolerate a regular diet with thin liquids without signs or symptoms of penetration/aspiration 100% of the time. - The patient will participate in therapeutic PO trials with the FLANGING MACHINE OPERATOR. ? Guidelines - The patient will comply with/recall the following guidelines/strategies 100% of the time with minimal cuing: Bolus Volume Change, Rate of Ingestion Change, Additional Swallow(s) per Bolus, No Straws. ? Structured Therapy - The patient will demonstrate 80% accuracy and require minimal cuing in structured swallowing therapy with the FLANGING MACHINE OPERATOR using the following exercises/therapy approaches and therapy assisted devices: , . ? Education - The patient, caregiver will verbalize/demonstrate understanding of the results of this evaluation, the above recommendations, and the swallowing guidelines. Clinician - Supplemental, Miscellaneous Communication: Please note, It is important to note MBSS objective studies are snapshots in time and patient function might vary with factors such as time of day or concomitant medical conditions. For this reason, the final treatment plan for this patient should rest with their medical care team. Additional recommendations should be considered with the totality of the patient in mind. Thank for the opportunity to participate in the care of this patient. If you have any questions about the content of this report, please contact the [facility] at [facility]. Emergency Crew Supervisor Clinician/Clinical Fellow: No Supervisory Statement: Yes Speech Language Pathologist: Sesar Pardo M.A., CCC-FLANGING MACHINE OPERATOR
== END 2022-12-16 10:18 | disposition home or self-care (01) ==
LOC: HO.XRAY 10:17
PROVIDERS: PCP Hospitalist; Visit Provider Hospitalist
DX: R13.12 Dysphagia, oropharyngeal phase (principal); R47.1 Dysarthria and anarthria
CPT/HCPCS: 74230; 92611

== ENCOUNTER → 2022-12-16 10:20 | Outpatient (BNV) | payer MEDICAID, SELFPAY | PROVIDERS: PCP Hospitalist; Visit Provider Radiology Diagnostic Radiology | DX: I63.9 Cerebral infarction, unspecified (principal) | CPT/HCPCS: 74230 ==

== ENCOUNTER 2022-12-27 12:08 | Outpatient (REF) | payer MEDICAID, SELFPAY ==
--- NOTE | ~2022-12-27 | MM_ITS ---
EXAMINATION: MM SCREENING DIGITAL BREAST TOMOSYNTHESIS, BILATERAL CLINICAL INFORMATION: Screening. Asymptomatic. COMPARISON: Mammography: This is a baseline study. TECHNIQUE: Digital breast tomosynthesis is performed in both the craniocaudal and mediolateral oblique views along with computer-aided detection (CAD). Synthesized 2D images are generated from the tomosynthesis. FINDINGS: The breasts are heterogeneously dense, which may obscure small masses (ACR BI-RADS breast composition Category c). There are no significant masses, abnormal calcifications, or other abnormalities. MM/MM tomosynthesis screening BI IMPRESSION: No mammographic evidence of malignancy. ASSESSMENT: BI-RADS BI-RADS 1 - Negative RECOMMENDATION: Routine annual mammography screening. 1 year F/U This examination should not preclude the clinical evaluation of a suspicious palpable abnormality. This patient's information was entered into a reminder system with a target due date for their next mammogram.
== END 2022-12-27 12:09 | disposition home or self-care (01) ==
LOC: HO.MAMMO 12:08
PROVIDERS: PCP Hospitalist; Visit Provider Advanced Practice Midwife
DX: Z12.31 Encounter for screening mammogram for malignant neoplasm of breast (principal)
CPT/HCPCS: 77063; 77067

== ENCOUNTER → 2022-12-27 12:15 | Outpatient (BNV) | payer MEDICAID, SELFPAY | PROVIDERS: PCP Hospitalist; Visit Provider Radiology Diagnostic Radiology | DX: Z12.31 Encounter for screening mammogram for malignant neoplasm of breast (principal) | CPT/HCPCS: 77063; 77067 ==

== ENCOUNTER 2022-12-29 10:54 | Outpatient (AMB) | payer MEDICAID, SELFPAY ==
[2022-12-29 10:57] VITALS: BP 118/78; PULSE 75; O2SAT 99
--- NOTE | 2022-12-29 10:57 | MHC.OFFVIS ---
Intake Vital Signs 12/29/22 10:57 Height 5 ft 7 in BP 118/78 Blood Pressure Location Lt brachial Position Sitting Pulse 75 Pulse Source Pulse Oximeter Pulse Oximetry (%) 99 Oxygen Delivery Method Room Air Intake Visit Reasons: wheezing Intake Note: pt is here for follow up and states she has been getting pneumonia every 2 weeks and being [facility] doctors for this, today she feels good. but states her lungs are very weak. Professor Of Radiology Required: No Allergies diphenhydramine [From Benadryl] Allergy (Unknown, Verified 12/29/22 11:19) Unknown NSAIDS (Non-Steroidal Anti-Inflamma Allergy (Verified 12/29/22 11:19) Unknown Medication List - Last Reconciled 12/29/22 by Vonnie Ackerman MD acetaminophen 650 mg PO Q6H PRN albuterol sulfate 3 mL inhalation Q12H PRN amitriptyline 2 tabs PO BEDTIME atorvastatin 1 tab PO DAILY baclofen 1 tab PO TID bisacodyl 10 mg ME DAILY PRN chlorhexidine gluconate 0.12% 15 mL PO MOWEFR cholecalciferol (vitamin D3) 50 mcg PO DAILY diazepam 0.5 tabs PO BID PRN folic acid 1 mg PO DAILY gabapentin 2 caps PO TID lorazepam 1 tab PO BID PRN multivitamin 1 tab PO DAILY naloxone 4 mg/actuation (Narcan) 4 mg intranasal Q2M PRN oxycodone 1 tab PO BID PRN polyethylene glycol 3350 (Miralax) 17 grams PO BID quetiapine 1 tab PO BEDTIME quetiapine 1 tab PO BEDTIME sennosides-docusate sodium 8.6-50 mg 2 tab-caps PO BID thiamine HCl (vitamin B1) 100 mg PO DAILY Do you need a note to return to daycare/school/sports/work: No HPI wheezing HPI Details THIS 42 YEARS OLD FEMALE A CASE OF CHRONIC TRAUMATIC BRAIN INJURY,, DYSPHAGIA, WITH FREQUENT PULMONARY ASPIRATIONS, COMES FOR FOLLOW-UP. SHE HAS SLOWLY GOTTEN BETTER AND SWALLOWING IS DEFINITELY IMPROVED, HER SPEECH IS BETTER. SHE HAS BEEN TREATED WITH COURSES OF ANTIBIOTIC FEW TIMES. USES ALBUTEROL WITH NEBULIZER FOR ACUTE EPISODES BUT MOSTLY SHE IS DOING WELL WITH USE OF PROAIR WITH SPACER ABOUT TWICE A DAY. [facility] Medical History Allergy status to analgesic agent Allergy status to other drugs, medicaments and biological substances Anxiety Asthma Cocaine abuse Constipation, unspecified Contracture, right hand Dysarthria Dysphagia Epidural hemorrhage without loss of consciousness Insomnia, unspecified Nausea Opioid use, unspecified, uncomplicated Presence of other vascular implants and grafts Primary osteoarthritis, right shoulder Pure hypercholesterolemia, unspecified Retention of urine, unspecified Right spastic hemiparesis Smoker TBI (traumatic brain injury) Vitamin D deficiency, unspecified Social History Housing: [facility] Alcohol intake: former Patient Tobacco Use Status: Current everyday Tobacco user Cigarette Packs Per Day: 3 Advance Directives Date on File: 08/08/22 Review of Systems Const All systems reviewed & are unremarkable except as noted in HPI and below Eyes Reports no additional complaints ENT Reports dysphagia (Mild, off and on) Card Reports no additional complaints Resp Reports cough and Denies wheezing GI Reports no additional complaints and Reports dysphagia (Mild, off and on) Reports no additional complaints Musc Reports abnormal gait (Non ambulatory patient remains in chair) Skin/Breast Reports system reviewed and no additional complaints, except as documented Neuro Reports abnormal gait (Non ambulatory patient remains in chair) and Reports other (Spastic right hemiplegia, with flexion contractures of the right hand.) Psych Reports anxiety and Reports mood swings Endo Reports no additional complaints Aller/Immun Reports no additional complaints and Denies wheezing Physical Exam Vital Signs: Last Vital Signs Pulse 75 12/29/22 10:57 BP 118/78 12/29/22 10:57 Pulse Ox 99 12/29/22 10:57 Oxygen Delivery Method Room Air 12/29/22 10:57 Const General: comfortable, no acute distress, alert and awake Orientation/consciousness: patient oriented x3 and Other orientation findings (She has moderate dysarthria, speech difficult to understand.) HEENT Head: Yes normal to inspection General nose exam: No nasal polyps present and No nasal discharge present Face and sinus: Yes sinuses nontender Mouth: oropharynx normal Teeth and gingiva: other (Poor dental hygiene) Throat: Yes posterior oropharynx normal Eyes General: appearance normal, both eyes and all related structures Neck Neck: Yes normal visual inspection, Yes no lymphadenopathy, Yes trachea midline and Yes no JVD Thyroid: Thyroid normal Chest Chest palpation & inspection: normal inspection of the chest, normal palpation of entire chest wall and no tenderness Resp Other: Percussion note resonant, she has good and equal breath sounds on both sides, I did not hear any wheezes or Creps. Cardio Palpation: normal PMI Rate: regular rate Rhythm: regular rhythm Heart sounds: no gallops and no murmurs GI Palpation (GI): Soft to palpation, nontender, No hepatosplenomegaly present and no masses Auscultation: normal bowel sounds Back/Spine/Pelvis Thoracic/Lumbar Spine: thoracic and lumbar spine normal to inspection and thoraco-lumbar ROM limited Skin General skin exam: no rashes or lesions noted Neuro Other: Speech is dysarthricbut improved from before . Patient has spastic paralysis of the upper and lower extremities. General: patient oriented x3 and no focal motor deficits Cranial nerves: Yes CN's II-XII intact bilaterally Extrem General: Yes normal to inspection, Yes no clubbing, cyanosis or edema and Yes no calf tenderness Psych Appearance: grossly normal Assessment & Plan Assessment & Plan (1) Smoker: Comment: Patient is ongoing smoker, would not be able to quit completely, due to her emotional issues. I counseled her to reduce it to only a few cigarettes per day. She does have a 4 mm pulmonary nodule which was new on the last CT scan, and she would need a yearly CT scan for F U . Code(s): F17.200 - Nicotine dependence, unspecified, uncomplicated (2) Asthma: Comment: She probably does have mild bronchial asthma as ASTHMA VARIANT COUGH. Advised that she may use albuterol HFA 2 puffs Q 4-6 hours p.r.n. for any sustained bouts of cough ( with a Spacer ) . Alternatively she can also use albuterol in the nebulizer, but she prefers to use dry inhaler. Code(s): J45.909 - Unspecified asthma, uncomplicated (3) Dysphagia: Comment: She does have chronic dysphagia related to her traumatic brain injury, It is gradually improving, but still getting frequent episodes . Of difficulty in swallowing SHE REMAINS AT RISK OF FREQUENT PULMONARY ASPIRATIONS, SHOULD REMAIN ON ASPIRATION PRECAUTIONS, WILL NEED TO BE TREATED WITH BROAD-SPECTRUM ANTIBIOTIC AGENT SUCH AUGMENTIN , IF SHE DEVELOPS SIGNS OF PNEUMONIA AFTER ASPIRATION. Code(s): R13.10 - Dysphagia, unspecified Coding Level of Care Code Est Pt Level 4 (92190) Diagnoses Smoker F17.200 Asthma J45.909 Dysphagia R13.10
== END 2022-12-29 11:16 | disposition home or self-care (01) ==
PROVIDERS: PCP Hospitalist; Visit Provider Internal Medicine
DX: F17.200 Nicotine dependence, unspecified, uncomplicated (principal); J45.909 Unspecified asthma, uncomplicated; R13.10 Dysphagia, unspecified
CPT/HCPCS: 99214

== ENCOUNTER → 2022-12-29 10:54 | Outpatient (BNVA) | payer MEDICAID, SELFPAY | PROVIDERS: PCP Hospitalist; Visit Provider Internal Medicine | DX: J45.909 Unspecified asthma, uncomplicated (principal); R13.10 Dysphagia, unspecified; F17.210 Nicotine dependence, cigarettes, uncomplicated | CPT/HCPCS: 99212 ==

== ENCOUNTER 2023-01-19 10:48 | Outpatient (REF) | payer MEDICAID, SELFPAY ==
--- NOTE | ~2023-01-19 | XR_ITS ---
EXAMINATION: XR HAND, RIGHT CLINICAL INFORMATION: Right hand pain. Contracted. COMPARISON: None available. TECHNIQUE: PA, lateral, and oblique views of the right hand. FINDINGS: There is contraction at the 1st interphalangeal joint as well as at the 2nd through 5th proximal and distal interphalangeal joints. Positioning somewhat limits evaluation. No displaced fracture. No significant joint space narrowing or marginal osteophytes. No osseous erosion. Normal carpal alignment. No abnormal soft tissue calcification. XR/XR hand RT 2V IMPRESSION: Contraction at the 1st interphalangeal joint as well as at the 2nd through 5th proximal and distal interphalangeal joints. Positioning somewhat limits evaluation. No displaced fracture.
== END 2023-01-19 10:49 | disposition home or self-care (01) ==
LOC: HO.XRAY 10:48
PROVIDERS: PCP Hospitalist; Visit Provider Hospitalist
DX: M24.541 Contracture, right hand (principal)
CPT/HCPCS: 73120

== ENCOUNTER 2023-03-10 10:23 | Outpatient (REF) | payer MEDICAID, SELFPAY ==
--- NOTE | ~2023-03-10 | XR_ITS ---
EXAMINATION: XR CHEST CLINICAL INFORMATION: Productive cough, shortness of breath, history of pneumonia COMPARISON: 11/11/2022. TECHNIQUE: 2 views of the chest were obtained. FINDINGS: No significant abnormality is noted involving the heart, lungs, mediastinum, bony thorax or soft tissues. XR/XR chest 2V IMPRESSION: Unremarkable examination with no interval change.
== END 2023-03-10 10:24 | disposition home or self-care (01) ==
LOC: HO.XRAY 10:23
PROVIDERS: PCP Hospitalist; Visit Provider Hospitalist
DX: R05.9 Cough, unspecified (principal); R06.02 Shortness of breath
CPT/HCPCS: 71046

== ENCOUNTER 2023-03-29 12:16 | Emergency (ER) | payer MEDICAID, SELFPAY ==
--- NOTE | ~2023-03-29 | XR_ITS ---
EXAMINATION: XR CHEST CLINICAL INFORMATION: Chest pain COMPARISON: 03/10/2023 TECHNIQUE: 2 views of the chest were obtained. FINDINGS: No significant abnormality is noted involving the heart, lungs, mediastinum, bony thorax or soft tissues. XR/XR chest 2V IMPRESSION: Unremarkable examination.
[2023-03-29 12:31] VITALS: BP 158/103; BP 192/122; PULSE 91; PULSE 98; RESP 18; TEMP 36.9; O2SAT 94; O2SAT 98; BMI 19.6
[2023-03-29 12:37] VITALS: BP 158/103; PULSE 89; PULSE 91; RESP 18; TEMP 36.9
--- NOTE | 2023-03-29 12:42 | ECG_ITS ---
Test Reason : chest pain Blood Pressure : / mmHG Vent. Rate : 089 BPM Atrial Rate : 089 BPM P-R Int : 144 ms QRS Dur : 072 ms QT Int : 352 ms P-R-T Axes : 054 044 053 degrees QTc Int : 428 ms Normal sinus rhythm RSR' or QR pattern in V1 suggests right ventricular conduction delay Otherwise normal ECG When compared with ECG of 28-SEP-2022 13:22, No significant change was found Referred By: Shilpa Arellano Electronically Signed By:DAVID MCKINNEY MD
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
[2023-03-29 13:48] LABS: MANUAL DIFF FLAG NO
[2023-03-29 13:53] LABS: Basophils Absolute Auto 0.1 X10*3/uL (0.0-0.2); Basophils Percent Auto 0.4 % (0-2); Eosinophils Absolute Auto 0.3 X10*3/uL (0.0-0.4); Eosinophils Percent Auto 2.2 % (0-4); Hematocrit 42.4 % (37.0-47.0); Hemoglobin 13.9 g/dl (12.0-16.0); Imm Gran Abs Auto 0.03 X10*3/uL (0.00-0.03); Imm Gran Pct Auto 0.3 % (0.0-0.4); Lymphocytes Absolute Auto 1.9 X10*3/uL (1.2-4.9); Mean Corpuscular HGB Conc 32.8 g/dl (31.0-35.0); Mean Corpuscular Hemoglobin 29.3 pg (27.0-33.0); Mean Corpuscular Volume 89.3 fL (80.0-98.0); Mean Platelet Volume 9.1 fL (9.4-12.3); Monocytes Absolute Auto 0.5 X10*3/uL (0.1-1.2); Monocytes Percent Auto 4.5 % (2-11); Neutrophils Absolute Auto 8.6 x10*3/uL (2.0-8.3); Neutrophils Percent Auto 75.6 % (45-73); Platelet Count 343 X10*3/uL (160-400); Red Blood Count 4.75 X10*6/uL (4.20-5.50); Red Cell Distribution Width 12.9 % (11.0-16.0); White Blood Count 11.3 X10*3/uL (4.8-10.8)
[2023-03-29 14:03] LABS: Prothrombin Time 12.4 SEC (11.1-13.3)
[2023-03-29 14:08] LABS: C Reactive Protein 1.69 mg/dL (< or = 0.50)
[2023-03-29] MEDS: Albuterol/Iprat 2.5/0.5MG 3 ML AMPUL.NEB INHALE (14:14)
[2023-03-29 14:15] VITALS: PULSE 95; RESP 21; O2SAT 94
[2023-03-29 14:15] LABS: Alanine Aminotransferase 22 U/L (0-31); Albumin Level 4.3 g/dL (3.5-5.0); Alkaline Phosphatase 74 U/L (39-117); Anion Gap 11 (12-20); Aspartate Amino Transferase 17 U/L (5-31); Bilirubin Total 0.7 mg/dL (0.0-1.0); Blood Urea Nitrogen 9 mg/dL (9-16); Calcium 9.5 mg/dL (8.4-10.2); Carbon Dioxide 26 mmol/L (22-29); Chloride 105 mmol/L (96-108); Creatinine Clr Calc Pharmacy 92.3; Estimated Glomerular Filt Rate > 60; Glucose Random 88 mg/dL (60-115); Magnesium 2.4 mg/dL (1.6-2.6); Potassium 3.7 mmol/L (3.3-5.1); Sodium 138 mmol/L (135-145); Total Protein 8.1 g/dL (6.5-8.0)
[2023-03-29 14:17] LABS: HCG Quantitative 3 mIU/mL; Troponin-I High Sensitivity < 2.7 ng/L (<3.5-17.0)
[2023-03-29] MEDS: oxyCODONE HCl Immed Release 5 MG TABLET PO (14:23)
[2023-03-29 14:30] VITALS: BP 167/97; PULSE 104; RESP 14; O2SAT 95
[2023-03-29 14:40] LABS: Influenza A PCR NEGATIVE (Negative); Influenza B PCR NEGATIVE (Negative); Resp Syncy Virus RNA Qual PCR NEGATIVE (Negative); SARS COV2 PCR INHOUSE NEGATIVE (Negative)
[2023-03-29 14:47] LABS: B Type Natriuretic Peptide < 10 pg/mL (<100)
[2023-03-29] MEDS: predniSONE 20 MG TABLET 60 MG PO (15:06)
[2023-03-29] MEDS: Azithromycin 500 MG TABLET PO (15:06)
--- NOTE | 2023-03-29 17:33 | PC.NURSE ---
Report given to Jorge LUIS at [facility]
== END 2023-03-29 17:33 | disposition home or self-care (01) ==
PROVIDERS: Physician Assistant Medical; Emergency Provider Emergency Medicine; PCP Hospitalist
DX: J45.909 Unspecified asthma, uncomplicated (principal); R07.89 Other chest pain; R05.9 Cough, unspecified; R51.9 Headache, unspecified; R06.02 Shortness of breath; F17.210 Nicotine dependence, cigarettes, uncomplicated; Z71.6 Tobacco abuse counseling; Z20.822 Contact with and (suspected) exposure to COVID-19; Z20.828 Contact with and (suspected) exposure to other viral communicable diseases; Z79.899 Other long term (current) drug therapy
CPT/HCPCS: 0241U; 36415; 71046; 80053; 83735; 83880; 84484; 84702; 85025; 85610; 86140; 93005; 94640; 99284; 99285

== ENCOUNTER 2023-06-29 13:28 | Outpatient (AMB) | payer MEDICAID, SELFPAY ==
[2023-06-29 13:36] VITALS: BP 112/80; PULSE 94; O2SAT 100
--- NOTE | 2023-06-29 13:36 | MHC.OFFVIS ---
Intake Vital Signs 06/29/23 13:36 Height 5 ft 4 in BP 112/80 Blood Pressure Location Lt brachial Position Sitting Pulse 94 Pulse Source Pulse Oximeter Pulse Oximetry (%) 100 Oxygen Delivery Method Room Air Intake Visit Reasons: wheezing Intake Note: pt is here for follow up and states all is going well/ Allergies diphenhydramine [From Benadryl] Allergy (Unknown, Verified 06/29/23 13:59) Unknown NSAIDS (Non-Steroidal Anti-Inflamma Allergy (Verified 06/29/23 13:59) Unknown Medication List - Last Reconciled 06/29/23 by Vonnie Ackerman MD acetaminophen 650 mg PO Q6H PRN albuterol sulfate 3 mL inhalation Q12H PRN albuterol sulfate 90 mcg/actuation 2 puffs inhalation Q6H PRN amitriptyline 2 tabs PO BEDTIME atorvastatin 1 tab PO DAILY azithromycin 250 mg PO DAILY 4 days baclofen 1 tab PO TID bisacodyl 10 mg [place] DAILY PRN chlorhexidine gluconate 0.12% 15 mL PO MOWEFR cholecalciferol (vitamin D3) 50 mcg PO DAILY diazepam 0.5 tabs PO BID PRN diazepam (Valium) 2 mg PO BID PRN folic acid 1 mg PO DAILY gabapentin 2 caps PO TID lorazepam 1 tab PO BID PRN mirtazapine 7.5 mg PO BEDTIME montelukast 10 mg PO DAILY multivitamin 1 tab PO DAILY naloxone 4 mg/actuation (Narcan) 4 mg intranasal Q2M PRN oxycodone 1 tab PO BID PRN polyethylene glycol 3350 (Miralax) 17 grams PO BID quetiapine 1 tab PO BEDTIME quetiapine 1 tab PO BEDTIME sennosides-docusate sodium 8.6-50 mg 2 tab-caps PO BID thiamine HCl (vitamin B1) 100 mg PO DAILY Do you need a note to return to daycare/school/sports/work: No HPI wheezing HPI Details MICHELLE IS 42 YEARS OLD FEMALE, A CASE OF POST TRAUMATIC BRAIN INJURY, SHE HAS HAD SPASTIC PARALYSIS OF THE EXTREMITIES, AND ALSO DYSPHAGIA, WITH INCIDENCE IS OF ASPIRATION BRONCHITIS/PNEUMONITIS. SHE IS RESIDENT OF [facility]. SHE HAS GRADUALLY IMPROVED TO THE POINT THAT NOW SWALLOWS OKAY, AND SHE CAN COMMUNICATE FAIRLY WELL. SHE REMAINS IN THE WHEELCHAIR MOST OF THE TIME BUT AT THE FACILITY HAS STARTED WALKING WITH SOME ASSISTANCE. SHE SMOKES 3 CIGARETTES A DAY. SHE HAS ONLY OCCASIONAL BOUTS OF COUGH AND WHEEZING, AND USES PROAIR HFA ONLY P.R.N.. IN THE PAST SHE HAS USED OXYGEN OFF AND ON BUT NOT IN THE LAST 2-3 MONTHS. [facility] Medical History Allergy status to other drugs, medicaments and biological substances Allergy status to analgesic agent Nausea Retention of urine, unspecified Presence of other vascular implants and grafts Contracture, right hand Constipation, unspecified Insomnia, unspecified Opioid use, unspecified, uncomplicated Cocaine abuse Primary osteoarthritis, right shoulder Pure hypercholesterolemia, unspecified Epidural hemorrhage without loss of consciousness Vitamin D deficiency, unspecified Anxiety Smoker Asthma Dysphagia Dysarthria Right spastic hemiparesis TBI (traumatic brain injury) Social History Housing: Prison Alcohol intake: never Patient Tobacco Use Status: Current everyday Tobacco user Cigarette Packs Per Day: 3 Advance Directives Date on File: 08/08/22 Review of Systems Const All systems reviewed & are unremarkable except as noted in HPI and below Eyes Reports no additional complaints ENT Reports dysphagia (Mild, off and on) Card Reports no additional complaints Resp Reports cough and Denies wheezing GI Reports no additional complaints and Reports dysphagia (Mild, off and on) Reports no additional complaints Musc Reports abnormal gait (Non ambulatory patient remains in chair) Skin/Breast Reports system reviewed and no additional complaints, except as documented Neuro Reports abnormal gait (Non ambulatory patient remains in chair) and Reports other (Spastic right hemiplegia, with flexion contractures of the right hand.) Psych Reports anxiety and Reports mood swings Endo Reports no additional complaints Aller/Immun Reports no additional complaints and Denies wheezing Physical Exam Vital Signs: Last Vital Signs Pulse 94 06/29/23 13:36 BP 112/80 06/29/23 13:36 Pulse Ox 100 06/29/23 13:36 Oxygen Delivery Method Room Air 06/29/23 13:36 Const General: comfortable, no acute distress, alert and awake Orientation/consciousness: patient oriented x3 and Other orientation findings (She has moderate dysarthria, speech difficult to understand.) HEENT Head: Yes normal to inspection General nose exam: No nasal polyps present and No nasal discharge present Face and sinus: Yes sinuses nontender Mouth: oropharynx normal Teeth and gingiva: other (Poor dental hygiene) Throat: Yes posterior oropharynx normal Eyes General: appearance normal, both eyes and all related structures Neck Neck: Yes normal visual inspection, Yes no lymphadenopathy, Yes trachea midline and Yes no JVD Thyroid: Thyroid normal Chest Chest palpation & inspection: normal inspection of the chest, normal palpation of entire chest wall and no tenderness Resp Other: Percussion note resonant, she has good and equal breath sounds on both sides, I did not hear any wheezes or Creps. Cardio Palpation: normal PMI Rate: regular rate Rhythm: regular rhythm Heart sounds: no gallops and no murmurs GI Palpation (GI): Soft to palpation, nontender, No hepatosplenomegaly present and no masses Auscultation: normal bowel sounds Back/Spine/Pelvis Thoracic/Lumbar Spine: thoracic and lumbar spine normal to inspection and thoraco-lumbar ROM limited Skin General skin exam: no rashes or lesions noted Neuro Other: Speech is dysarthricbut improved from before . Patient has spastic paralysis of the upper and lower extremities. General: patient oriented x3 and no focal motor deficits Cranial nerves: Yes CN's II-XII intact bilaterally Extrem General: Yes normal to inspection, Yes no clubbing, cyanosis or edema and Yes no calf tenderness Psych Appearance: grossly normal Assessment & Plan Assessment & Plan (1) Smoker: Comment: Patient is ongoing smoker, would not be able to quit completely, due to her emotional issues. I counseled her to reduce it to only a few cigarettes per day. Code(s): F17.200 - Nicotine dependence, unspecified, uncomplicated Plan: as above (2) Asthma: Comment: She probably does have mild bronchial asthma as ASTHMA VARIANT COUGH. Code(s): J45.909 - Unspecified asthma, uncomplicated Plan: Advised that she may use albuterol HFA 2 puffs Q 4-6 hours p.r.n. for any sustained bouts of cough . Alternatively she can also use albuterol in the nebulizer, but she prefers to use dry inhaler. (3) Dysphagia: Comment: She does have chronic dysphagia related to her traumatic brain injury, It is gradually improving, but still getting frequent episodes . Of difficulty in swallowing SHE REMAINS AT RISK OF PULMONARY ASPIRATIONS, Code(s): R13.10 - Dysphagia, unspecified Plan: SHOULD REMAIN ON ASPIRATION PRECAUTIONS, WILL NEED TO BE TREATED WITH BROAD-SPECTRUM ANTIBIOTIC AGENT SUCH AUGMENTIN , IF SHE DEVELOPS SIGNS OF PNEUMONIA AFTER ASPIRATION. Coding Level of Care Code Est Pt Level 3 (88924) Diagnoses Smoker F17.200 Asthma J45.909 Dysphagia R13.10
== END 2023-06-29 14:00 | disposition home or self-care (01) ==
PROVIDERS: PCP Hospitalist; Visit Provider Internal Medicine
DX: F17.200 Nicotine dependence, unspecified, uncomplicated (principal); J45.909 Unspecified asthma, uncomplicated; R13.10 Dysphagia, unspecified
CPT/HCPCS: 99213

== ENCOUNTER → 2023-06-29 13:28 | Outpatient (BNVA) | payer MEDICAID, SELFPAY | PROVIDERS: PCP Hospitalist; Visit Provider Internal Medicine | DX: J45.909 Unspecified asthma, uncomplicated (principal); R13.10 Dysphagia, unspecified; F17.210 Nicotine dependence, cigarettes, uncomplicated | CPT/HCPCS: 99212 ==

== ENCOUNTER 2023-10-09 09:58 | Emergency (ER) | payer MEDICAID, SELFPAY ==
--- NOTE | ~2023-10-09 | CT_ITS ---
EXAMINATION: CT CHEST WITH CONTRAST CLINICAL INFORMATION: 1.5 cm retrocardiac nodular opacity seen on chest radiograph earlier today COMPARISON: Chest radiograph earlier today, CT chest 09/28/2022 TECHNIQUE: Multidetector volumetric CT imaging of the chest was obtained after the administration of 60 mL of Omnipaque 350 intravenous contrast without immediate adverse reactions. Axial MIP volume rendering provided. Sagittal and coronal reformatted images were obtained. This CT examination was performed using dose optimization techniques as appropriate, variously including the following: *Automated exposure control *Adjustment of mA and/or kV according to patient size (this includes techniques or standardized protocols for targeted exams where dose is matched to indication/reason for exam; i.e. extremities or head) *Use of iterative reconstruction technique DLP: 283 mGy-cm FINDINGS: LUNGS: Mild emphysematous changes are seen along with moderate bronchial thickening. Multiple new tree-in-bud type opacities are seen in the left lower lobe new when compared to the prior CT from 09/28/2022. This finding can account for the opacity seen on the chest radiograph. Some mild bibasilar atelectasis is seen. MEDIASTINUM: The mediastinum is normal. PLEURA: There is no pleural effusion. No pleural mass or thickening. AXILLA: No lymphadenopathy. UPPER ABDOMEN: Multiple benign Bosniak class I renal cysts are noted, the largest measuring 7.3 cm and the left upper pole which require no additional imaging or follow-up. No solid renal masses are seen. An IVC filter is in place. OSSEOUS STRUCTURES: Unremarkable. CT/CT chest w IV con IMPRESSION: 1. New tree-in-bud type opacities in the left lower lobe consistent with infectious/inflammatory etiology. This finding can account for the opacity seen on the chest radiograph. 2. Incidental note made of mild emphysema and moderate bronchial thickening. Fleischner guidelines were followed.
--- NOTE | ~2023-10-09 | XR_ITS ---
EXAMINATION: XR CHEST CLINICAL INFORMATION: Unresponsive episode. COMPARISON: X-ray chest 03/29/2023, CT chest 09/28/2022. TECHNIQUE: Frontal view of the chest was obtained. FINDINGS: Lung volumes are low. There is no gross pneumothorax. Heart size is normal. No gross pleural effusion. There is a 1.5 cm retrocardiac nodular opacity which was not appreciated on chest CT scan of 09/28/2022. Increased patchy opacities in the bilateral lower lungs, left greater than right, may represent an infectious/inflammatory process. XR/XR chest 1V IMPRESSION: 1.5 cm retrocardiac nodular opacity which was not appreciated on chest CT scan of 09/28/2022. Increased patchy opacities in the bilateral lower lungs, left greater than right, may represent an infectious/inflammatory process. Recommend follow-up imaging in 4-6 weeks to confirm resolution and exclude underlying pathology. Additional imaging with CT scan could also be considered in the appropriate clinical setting. This study was presented today October 09, 2023 for interpretation. Stat results provided at this time as requested by referring provider.
--- NOTE | ~2023-10-09 | CT_ITS ---
EXAMINATION: CT HEAD WITHOUT CONTRAST CLINICAL INFORMATION: Unresponsiveness COMPARISON: 06/15/2019 TECHNIQUE: Contiguous axial imaging was performed from the skull base to vertex without intravenous administration of contrast. This CT examination was performed using dose optimization techniques as appropriate, variously including the following: *Automated exposure control *Adjustment of mA and/or kV according to patient size (this includes techniques or standardized protocols for targeted exams where dose is matched to indication/reason for exam; i.e. extremities or head) *Use of iterative reconstruction technique DLP: 617 mGy-cm FINDINGS: No significant interval change in appearance of status post right craniotomy. There is no evidence of acute intracranial hemorrhage, masses, mass effect, midline shift or ischemia. Ventricles, sulci are appropriate for age. There is no deep white matter disease. CT/CT head/brain wo IV con IMPRESSION: No acute abnormalities. Sequela of craniotomy on the right
[2023-10-09 10:10] VITALS: BP 122/86; BP 147/92; PULSE 102; PULSE 99; RESP 18; TEMP 36.7; O2SAT 98; BMI 18.2
--- NOTE | 2023-10-09 10:15 | PC.NURSE ---
Patient from [facility], per ems patient received scheduled oxy and ativan and then 30 minutes later was unresponsive in wheelchair. Was given 8mg of narcan. Uponn arrival patient alert and responsive. Denies taking any medications not prescribed to her. Reports sharp pain on left side of head, that she gets headache like this often, last time being a few nights ago. changed over into hospital attire, vss
--- NOTE | 2023-10-09 11:22 | ED_ITS ---
HPI - General Adult General Chief complaint: General Medical Stated complaint: UNRESP S/P OXY & ATIVAN,NARCAN GIVEN PER EMS Time Seen by Provider: 10/09/23 11:17 Source: patient and EMS Mode of arrival: EMS Limitations: no limitations History of Present Illness ED Provider: Shilpa Arellano PA-C HPI narrative: Patient is a 42 year old assigned female at with a history of TBI, asthma, dysphagia, depression, and dysarthria presenting to the emergency department today after a brief episode of unresponsiveness. Patient states that she was given her morning medication including oxycodone and valium and had an episode of being unresponsive. EMS states that they gave the patient intranasal narcan and she awoke. SNF staff states that this is not the first time this has happened with the patient. Patient denies any dizziness, lightheadedness, abdominal pain, nausea, vomiting, fever, chills, blurry vision, double vision, loss of vision, chest pain, difficulty breathing, shortness of breath, back pain, night sweats, pain with urination, increased urinary frequency, increased urinary urgency, blood in her urine or stool, recent trauma or falls, bowel incontinence, bladder incontinence, or any other complaints at this time. Relieving factors: none Exacerbating factors: none Associated symptoms: denies other symptoms Treatments prior to arrival: other (Narcan administered by EMS) Related Data Home Medications ?Medication ?Instructions ?Recorded ?Confirmed acetaminophen 325 mg tablet 650 mg PO Q6H PRN Fever 10/09/21 02/05/22 albuterol sulfate 2.5 mg/3 mL 3 ml inhalation Q12H PRN Shortness 10/09/21 02/05/22 (0.083 %) solution for nebulization Of Breath amitriptyline 10 mg tablet 2 tab PO BEDTIME 10/09/21 02/05/22 atorvastatin 10 mg tablet 1 tab PO DAILY 10/09/21 02/05/22 baclofen 5 mg tablet 1 tab PO TID 10/09/21 02/05/22 bisacodyl 10 mg rectal suppository 10 mg UT DAILY PRN Constipation 10/09/21 02/05/22 chlorhexidine gluconate 0.12 % 15 ml PO MOWEFR 10/09/21 02/05/22 mouthwash cholecalciferol (vitamin D3) 50 50 mcg PO DAILY 10/09/21 02/05/22 mcg (2,000 unit) tablet diazepam 2 mg tablet 0.5 tab PO BID PRN Anxiety 10/09/21 02/05/22 folic acid 1 mg tablet 1 mg PO DAILY 10/09/21 02/05/22 gabapentin 400 mg capsule 2 cap PO TID 10/09/21 02/05/22 lorazepam 1 mg tablet 1 tab PO BID PRN Anxiety 10/09/21 02/05/22 multivitamin 1 tab PO DAILY 10/09/21 02/05/22 oxycodone 5 mg tablet 1 tab PO BID PRN Pain 10/09/21 02/05/22 polyethylene glycol 3350 17 17 g PO BID 10/09/21 02/05/22 gram/dose oral powder (Miralax) quetiapine 100 mg tablet 1 tab PO BEDTIME 10/09/21 02/05/22 quetiapine 50 mg tablet 1 tab PO BEDTIME 10/09/21 02/05/22 sennosides 8.6 mg-docusate sodium 2 tab-cap PO BID 10/09/21 02/05/22 50 mg tablet thiamine HCl (vitamin B1) 100 mg 100 mg PO DAILY 10/09/21 02/05/22 tablet naloxone 4 mg/actuation nasal 4 mg intranasal Q2M PRN 07/05/22 spray (Narcan) albuterol sulfate 90 mcg/actuation 2 puff inhalation Q6H PRN 06/29/23 aerosol inhaler diazepam 2 mg tablet (Valium) 2 mg PO BID PRN 06/29/23 mirtazapine 7.5 mg tablet 7.5 mg PO BEDTIME 06/29/23 montelukast 10 mg tablet 10 mg PO DAILY 06/29/23 Previous Rx's ?Medication ?Instructions ?Recorded azithromycin 250 mg tablet 250 mg PO DAILY 4 days #4 tabs 03/29/23 amoxicillin 875 mg-potassium 1 tab PO BID 7 days #14 tabs 10/09/23 clavulanate 125 mg tablet doxycycline hyclate 100 mg tablet 100 mg PO BID 7 days #14 tabs 10/09/23 Allergies Allergy/AdvReac Type Severity Reaction Status Date / Time diphenhydramine Allergy Unknown Unknown Verified 10/09/23 10:12 [From Benadryl] NSAIDS (Non-Steroidal Allergy Unknown Verified 10/09/23 10:12 Anti-Inflamma Review of Systems 2 Constitutional: Constitutional: Reports no additional constitutional complaints, Denies chills, Denies fever(s) and Denies night sweats Eyes: Eyes: Reports no additional eye complaints, Denies blurry vision, Denies change in vision, Denies diplopia, Denies eye discharge, Denies loss of vision and Denies eye pain ENT: Denies dizziness Cardiovascular: Cardiovascular: Reports no additional cardiovascular complaints, Denies chest pain, Denies lightheadedness, Denies Loss of Consciousness and Denies dyspnea Respiratory: Respiratory: Reports no additional respiratory complaints and Denies dyspnea Gastrointestinal: Gastrointestinal: Reports no additional gastrointestinal complaints, Denies abdominal pain, Denies melena, Denies hematochezia, Denies change in bowel habits and Denies change in stool character Genitourinary: Genitourinary: Denies hematuria, Denies urinary frequency, Denies dysuria, Denies urinary incontinence, Denies urinary hesitancy and Denies urinary urgency Musculoskeletal: Musculoskeletal: Reports no additional musculoskeletal complaints, Denies numbness and Denies tingling Neurologic: Denies dizziness, Denies loss of vision, Denies numbness and Denies tingling Comments: brief episode of unresponsiveness Psychiatric: Psychiatric: Reports no additional psychiatric complaints Endocrine: Endocrine: Reports no additional endocrine complaints Hematologic/Lymphatic: Hematologic/Lymphatic: Reports no additional hematologic/lymphatic complaints Allergic/Immunologic: Allergic/Immunologic: Reports no additional allergic/immunologic complaints [facility] Past Medical History Attestation statement: The following information was validated with the patient. Source: old records reviewed, nursing notes reviewed and other ([facility] staff / records) Medical History Allergy status to other drugs, medicaments and biological substances Allergy status to analgesic agent Nausea Retention of urine, unspecified Presence of other vascular implants and grafts Contracture, right hand Constipation, unspecified Insomnia, unspecified Opioid use, unspecified, uncomplicated Cocaine abuse Primary osteoarthritis, right shoulder Pure hypercholesterolemia, unspecified Epidural hemorrhage without loss of consciousness Vitamin D deficiency, unspecified Anxiety Smoker Asthma Dysphagia Dysarthria Right spastic hemiparesis TBI (traumatic brain injury) Social History Social History Housing: [facility] Alcohol intake: former Patient Tobacco Use Status: Current everyday Tobacco user Cigarette Packs Per Day: 3 Advance Directives Date on File: 08/08/22 Physical Exam ED Vital Signs: Vital Signs - 24 hr 10/09/23 10:10 Temperature 98.1 F Pulse Rate 99 Respiratory Rate 18 Blood Pressure 147/92 H Pulse Oximetry 98 Oxygen Delivery Method Room Air BMI result Body Mass Index 18.2 Const General: cooperative, no acute distress, alert and awake Nutritional Appearance: well nourished Orientation/consciousness: patient oriented x3 Limitations: no limitations HENMT Head: Yes normal to inspection and Yes atraumatic Ears: hearing grossly normal bilaterally and external ears normal General nose exam: Normal external nose present, no nasal discharge noted and no epistaxis Face and sinus: Yes normal facial exam, No abrasion and No laceration Mouth: Normal oral and palatal mucosa present, no drooling and no muffled voice Eyes General: appearance normal, both eyes and all related structures Periorbital: periorbital findings normal Eyelids: Yes eyelids normal Conjunctivae: conjunctivae normal Pupils: Equal, round and reactive pupils present EOM: EOMs intact bilaterally Neck Neck: Yes normal visual inspection, Yes full ROM and Yes no lymphadenopathy Chest Chest palpation & inspection: normal inspection of the chest Resp Effort & Inspection: normal respiratory effort and able to speak in complete sentences GI Inspection: Yes normal to inspection Neuro General: patient oriented x3 and moves all extremities Cranial nerves: Yes Equal, round and reactive pupils present Cognition (Neuro): normal cognition Extrem General: Yes normal to inspection, Yes full ROM and Yes capillary refill normal Psych Appearance: grossly normal Mental Status: mental status grossly normal Affect: normal affect Attitude: cooperative Thought process: Normal thought process present Thought content: Normal thought content present Insight: Good insight present (Psych) Medications Administered Discontinued Medications Generic Name Dose Route Start Last Admin Trade Name Freq PRN Reason Stop Dose Admin Amitriptyline HCl 10 mg 10/09/23 19:50 10/09/23 21:02 Amitriptyline Hcl 10 Mg Tablet PO 10/09/23 19:51 10 mg ONCE ONE Administration Baclofen 5 mg 10/09/23 19:50 10/09/23 20:25 Baclofen 10 Mg Tablet PO 10/09/23 19:51 5 mg ONCE ONE Administration Diazepam 2 mg 10/09/23 19:50 10/09/23 20:25 Diazepam 2 Mg Tablet PO 10/09/23 19:51 2 mg ONCE ONE Administration Ceftriaxone Sodium 1 gm/ 50 mls @ 100 mls/hr 10/09/23 19:22 10/09/23 21:07 Sodium Chloride IV 10/09/23 19:51 Infused ONCE ONE Infusion Iohexol 100 ml 10/09/23 16:22 10/09/23 16:22 Iohexol 350 Mg/Ml 100 Ml Infus..Btl IV 10/09/23 16:23 65 ml ONCE ONE Administration Mirtazapine 15 mg 10/09/23 19:50 10/09/23 20:25 Mirtazapine 15 Mg Tablet PO 10/09/23 19:51 15 mg ONCE ONE Administration Montelukast Sodium 10 mg 10/09/23 19:50 10/09/23 20:25 Montelukast Sodium 10 Mg Tablet PO 10/09/23 19:51 10 mg ONCE ONE Administration Morphine Sulfate 2 mg 10/09/23 13:57 10/09/23 14:20 Morphine Sulfate 2 Mg/Ml Cartridge IVPUSH 10/09/23 13:58 2 mg ONCE ONE Administration Protocol Morphine Sulfate 2 mg 10/09/23 17:54 10/09/23 18:17 Morphine Sulfate 2 Mg/Ml Cartridge IVPUSH 10/09/23 17:55 2 mg ONCE ONE Administration Protocol Ondansetron HCl 4 mg 10/09/23 13:57 10/09/23 14:21 Ondansetron Hcl 4 Mg/2 Ml Vial IVPUSH 10/09/23 13:58 4 mg ONCE ONE Administration Quetiapine Fumarate 100 mg 10/09/23 19:50 10/09/23 20:26 Quetiapine Fumarate 100 Mg Tablet PO 10/09/23 19:51 100 mg ONCE ONE Administration Medical Decision Making Medical Decision Making [facility] Narrative: Patient is a 42 year old assigned female at with a history of TBI, asthma, dysphagia, depression, and dysarthria presenting to the emergency department today after a brief episode of unresponsiveness. Patient's physical exam was consistent with her baseline. Patient's blood work was unremarkable. Patient's urine showed no acute process. Patient's EKG was unremarkable. Patient's chest x-ray showed a 1.5cm retrocardiac opacity that was not appreciated in a previous CT scan. CT of the head was negative for any acute process. CT of the chest showed a pneumonia in the left lower lobe which the radiologist confirms was the finding from the chest XR. I explained my physical exam findings as well as all test results to the patient. I answered all questions asked by the patient. Patient was given IV antibiotics while in the department as well as pain medication for her chronic pain. After receiving these medications, the patient was re-evaluated and stated that her symptoms were largely improved. I explained to the patient that I believe her episode of unresponsiveness that brought her to the department was the result of taking her prescribed oxycodone at the same time as her valium and recommended those medications be staggered. I suspect since this is happening with some regularity that the patient developed this pneumonia secondary to an aspiration event. I stressed the importance of the patient taking her medication as prescribed. I stressed the importance of the patient following up with her primary care provider. I stressed the importance of the patient returning to the emergency department immediately if her symptoms were to worsen or if she were to develop any dizziness, shortness of breath, difficulty breathing, chest pain, blurry vision, loss of vision, nausea, vomiting, abdominal pain, fever, chills, back pain, or any other complaints. Patient verbalized agreement and understanding with this treatment plan and discharge back to her SNF.. Differential Diagnosis Differential Diagnoses: The differential diagnosis associated with the presentation includes Aspiration pneumonia Brief episode of unconsciousness Accidental overdose Admission/Observation Consideration of admission/observation: Escalation of care including admission/observation considered Patient would have been admitted to the hospital had her work up had any findings where hospital admission was appropriate and her clinical presentation warranted hospital admission. Lab Data [facility] Lab Attestation statement: I reviewed the patient's lab results. My interpretation of these results are in the [facility] Rationale portion of this note. 10/09/23 11:51 10/09/23 11:51 Labs: Lab Results 10/09/23 10/09/23 10/09/23 Range/Units 11:51 11:55 12:18 WBC 10.8 (4.8-10.8) X10*3/uL RBC 4.22 (4.20-5.50) X10*6/uL Hgb 12.5 (12.0-16.0) g/dl Hct 37.5 (37.0-47.0) % MCV 88.9 (80.0-98.0) fL MCH 29.6 (27.0-33.0) pg MCHC 33.3 (31.0-35.0) g/dl RDW 13.2 (11.0-16.0) % Plt Count 260 (160-400) X10*3/uL MPV 9.4 (9.4-12.3) fL Immature Gran % (Auto) 0.4 (0.0-0.4) % Neut % (Auto) 85.9 H (45-73) % Lymph % (Auto) 8.7 L (20-40) % Johnson % (Auto) 4.1 (2-11) % Eos % (Auto) 0.6 (0-4) % Baso % (Auto) 0.3 (0-2) % Lymph # (Auto) 0.9 L (1.2-4.9) X10*3/uL Johnson # (Auto) 0.4 (0.1-1.2) X10*3/uL Eos # (Auto) 0.1 (0.0-0.4) X10*3/uL Baso # (Auto) 0.0 (0.0-0.2) X10*3/uL Abs Immat Gran (auto) 0.04 H (0.00-0.03) X10*3/uL Absolute Neuts (auto) 9.3 H (2.0-8.3) x10*3/uL Absolute Nucleated RBC 0.000 (0.0-0.012) X10*3/uL Nucleated RBC % (auto) 0.0 (0.0-0.2) /100WBC Hold Purple Top SEE NOTE Sodium 141 (135-145) mmol/L Potassium 3.7 (3.3-5.1) mmol/L Chloride 109 H (96-108) mmol/L Carbon Dioxide 26 (22-29) mmol/L Anion Gap 10 L (12-20) BUN 11 (9-16) mg/dL Creatinine 0.67 (0.5-1.4) mg/dL Estim Creat Clear Calc 91.1 Estimated GFR > 60 Random Glucose 88 (60-115) mg/dL Lactic Acid (0.5-2.0) mmol/L Calcium 9.6 (8.4-10.2) mg/dL Magnesium 1.9 (1.6-2.6) mg/dL Total Bilirubin 1.0 (0.0-1.0) mg/dL AST 16 (5-31) U/L ALT 19 (0-31) U/L Alkaline Phosphatase 72 (39-117) U/L Troponin I High Sens < 2.7 (<3.5-17.0) ng/L Total Protein 7.2 (6.5-8.0) g/dL Albumin 4.0 (3.5-5.0) g/dL Beta HCG, Quant < 2 mIU/mL Urine Color Yellow Urine Appearance Clear Urine pH 7.5 (5.0-9.0) Ur Specific [place] 1.010 (1.005-1.025) Urine Protein Negative (Neg-Trace) mg/dL Urine Glucose (UA) Negative (Negative) mg/dL Urine Ketones Negative (Negative) mg/dL Urine Blood Negative (Negative) Urine Nitrite Negative (Negative) Ur Leukocyte Esterase Negative (Negative) Urine Opiates Screen Not Detected (Not Detect) Ur Buprenorphine Scrn Not Detected (Not Detect) ng/mL Ur Oxycodone Screen Positive H (Not Detect) ng/mL Urine Methadone Screen Not Detected (Not Detect) ng/mL Urine Fentanyl Screen Not Detected (Not Detect) Ur Barbiturates Screen Not Detected (Not Detect) Ur Phencyclidine Scrn Not Detected (Not Detect) Ur Amphetamines Screen Not Detected (Not Detect) U Benzodiazepines Scrn POSITIVE H (Not Detect) Urine Cocaine Screen Not Detected (Not Detect) U Marijuana (THC) Screen Not Detected (Not Detect) Influenza Type A (PCR) NEGATIVE (Negative) Influenza Type B (PCR) NEGATIVE (Negative) RSV RNA Qual (PCR) NEGATIVE (Negative) SARS-CoV-2 RNA (RT-PCR) NEGATIVE (Negative) 10/09/23 Range/Units 20:02 WBC (4.8-10.8) X10*3/uL RBC (4.20-5.50) X10*6/uL Hgb (12.0-16.0) g/dl Hct (37.0-47.0) % MCV (80.0-98.0) fL MCH (27.0-33.0) pg MCHC (31.0-35.0) g/dl RDW (11.0-16.0) % Plt Count (160-400) X10*3/uL MPV (9.4-12.3) fL Immature Gran % (Auto) (0.0-0.4) % Neut % (Auto) (45-73) % Lymph % (Auto) (20-40) % Johnson % (Auto) (2-11) % Eos % (Auto) (0-4) % Baso % (Auto) (0-2) % Lymph # (Auto) (1.2-4.9) X10*3/uL Johnson # (Auto) (0.1-1.2) X10*3/uL Eos # (Auto) (0.0-0.4) X10*3/uL Baso # (Auto) (0.0-0.2) X10*3/uL Abs Immat Gran (auto) (0.00-0.03) X10*3/uL Absolute Neuts (auto) (2.0-8.3) x10*3/uL Absolute Nucleated RBC (0.0-0.012) X10*3/uL Nucleated RBC % (auto) (0.0-0.2) /100WBC Hold Purple Top Sodium (135-145) mmol/L Potassium (3.3-5.1) mmol/L Chloride (96-108) mmol/L Carbon Dioxide (22-29) mmol/L Anion Gap (12-20) BUN (9-16) mg/dL Creatinine (0.5-1.4) mg/dL Estim Creat Clear Calc Estimated GFR Random Glucose (60-115) mg/dL Lactic Acid 1.2 (0.5-2.0) mmol/L Calcium (8.4-10.2) mg/dL Magnesium (1.6-2.6) mg/dL Total Bilirubin (0.0-1.0) mg/dL AST (5-31) U/L ALT (0-31) U/L Alkaline Phosphatase (39-117) U/L Troponin I High Sens (<3.5-17.0) ng/L Total Protein (6.5-8.0) g/dL Albumin (3.5-5.0) g/dL Beta HCG, Quant mIU/mL Urine Color Urine Appearance Urine pH (5.0-9.0) Ur Specific [place] (1.005-1.025) Urine Protein (Neg-Trace) mg/dL Urine Glucose (UA) (Negative) mg/dL Urine Ketones (Negative) mg/dL Urine Blood (Negative) Urine Nitrite (Negative) Ur Leukocyte Esterase (Negative) Urine Opiates Screen (Not Detect) Ur Buprenorphine Scrn (Not Detect) ng/mL Ur Oxycodone Screen (Not Detect) ng/mL Urine Methadone Screen (Not Detect) ng/mL Urine Fentanyl Screen (Not Detect) Ur Barbiturates Screen (Not Detect) Ur Phencyclidine Scrn (Not Detect) Ur Amphetamines Screen (Not Detect) U Benzodiazepines Scrn (Not Detect) Urine Cocaine Screen (Not Detect) U Marijuana (THC) Screen (Not Detect) Influenza Type A (PCR) (Negative) Influenza Type B (PCR) (Negative) RSV RNA Qual (PCR) (Negative) SARS-CoV-2 RNA (RT-PCR) (Negative) Independent Interpretation I performed an independent interpretation of an: EKG, Plain X-Ray and CT Scan Interpretation: My interpretation is in agreement with the radiologist's impression of these imaging studies. - EXAMINATION: XR CHEST CLINICAL INFORMATION: Unresponsive episode. COMPARISON: X-ray chest 03/29/2023, CT chest 09/28/2022. TECHNIQUE: Frontal view of the chest was obtained. FINDINGS: Lung volumes are low. There is no gross pneumothorax. Heart size is normal. No gross pleural effusion. There is a 1.5 cm retrocardiac nodular opacity which was not appreciated on chest CT scan of 09/28/2022. Increased patchy opacities in the bilateral lower lungs, left greater than right, may represent an infectious/inflammatory process. XR/XR chest 1V IMPRESSION: 1.5 cm retrocardiac nodular opacity which was not appreciated on chest CT scan of 09/28/2022. Increased patchy opacities in the bilateral lower lungs, left greater than right, may represent an infectious/inflammatory process. Recommend follow-up imaging in 4-6 weeks to confirm resolution and exclude underlying pathology. Additional imaging with CT scan could also be considered in the appropriate clinical setting. This study was presented today October 09, 2023 for interpretation. Stat results provided at this time as requested by referring provider. Dictated By: Catarina Jackson MD Signed By: Electronically signed by Catarina Jackson MD 10/09/23 1344 - EXAMINATION: CT HEAD WITHOUT CONTRAST CLINICAL INFORMATION: Unresponsiveness COMPARISON: 06/15/2019 TECHNIQUE: Contiguous axial imaging was performed from the skull base to vertex without intravenous administration of contrast. This CT examination was performed using dose optimization techniques as appropriate, variously including the following: *Automated exposure control *Adjustment of mA and/or kV according to patient size (this includes techniques or standardized protocols for targeted exams where dose is matched to indication/reason for exam; i.e. extremities or head) *Use of iterative reconstruction technique DLP: 617 mGy-cm FINDINGS: No significant interval change in appearance of status post right craniotomy. There is no evidence of acute intracranial hemorrhage, masses, mass effect, midline shift or ischemia. Ventricles, sulci are appropriate for age. There is no deep white matter disease. CT/CT head/brain wo IV con IMPRESSION: No acute abnormalities. Sequela of craniotomy on the right Dictated By: Jodie Perales MD Signed By: Electronically signed by Jodie Perales MD 10/09/23 1506 - EXAMINATION: CT CHEST WITH CONTRAST CLINICAL INFORMATION: 1.5 cm retrocardiac nodular opacity seen on chest radiograph earlier today COMPARISON: Chest radiograph earlier today, CT chest 09/28/2022 TECHNIQUE: Multidetector volumetric CT imaging of the chest was obtained after the administration of 60 mL of Omnipaque 350 intravenous contrast without immediate adverse reactions. Axial MIP volume rendering provided. Sagittal and coronal reformatted images were obtained. This CT examination was performed using dose optimization techniques as appropriate, variously including the following: *Automated exposure control *Adjustment of mA and/or kV according to patient size (this includes techniques or standardized protocols for targeted exams where dose is matched to indication/reason for exam; i.e. extremities or head) *Use of iterative reconstruction technique DLP: 283 mGy-cm FINDINGS: LUNGS: Mild emphysematous changes are seen along with moderate bronchial thickening. Multiple new tree-in-bud type opacities are seen in the left lower lobe new when compared to the prior CT from 09/28/2022. This finding can account for the opacity seen on the chest radiograph. Some mild bibasilar atelectasis is seen. MEDIASTINUM: The mediastinum is normal. PLEURA: There is no pleural effusion. No pleural mass or thickening. AXILLA: No lymphadenopathy. UPPER ABDOMEN: Multiple benign Bosniak class I renal cysts are noted, the largest measuring 7.3 cm and the left upper pole which require no additional imaging or follow-up. No solid renal masses are seen. An IVC filter is in place. OSSEOUS STRUCTURES: Unremarkable. CT/CT chest w IV con IMPRESSION: 1. New tree-in-bud type opacities in the left lower lobe consistent with infectious/inflammatory etiology. This finding can account for the opacity seen on the chest radiograph. 2. Incidental note made of mild emphysema and moderate bronchial thickening. Fleischner guidelines were followed. Dictated By: Eleuterio Morse MD Signed By: Electronically signed by Eleuterio Morse MD 10/09/23 1913 - Vent. Rate: 091 BPM Atrial Rate: 091 BPM P-R Int: 148 ms QRS Dur: 078 ms QT Int: 364 ms P-R-T Axes: 050 055 068 degrees QTc Int: 447 ms Normal sinus rhythm Normal ECG When compared with ECG of 29-MAR-2023 13:03, No significant change was found Electronically Signed By:JUSTYN ATKINSON Dictated By: Justyn Atkinson MD Signed By: Electronically signed by Justyn Atkinson MD 10/09/23 1448 Radiology Impression Discussion of test interpretation with radiology: I have reviewed the radiologist's reading. Independent Historian Clinical information obtained from an independent historian. History obtained from or confirmed by: EMS (EMS provided additional history and confirmed the history provided by the patient.) and Other (SNF staff provided additional history and confirmed the history provided by the patient.) External Record Review External record reviewed: Other (reviewed SNF records) Prescription Management I considered prescription management with: Antibiotic (patient prescribed an antibiotic for PNA) Chronic Conditions Patient?s care impacted by: Other (TBI / Dysphagia) Critical Care Time Critical Care Time Critical Care Time: Yes Total Critical Care Time: 49 Attestation: I spent 49 minutes of Critical Care Time with this patient. This does not include time spent on separately reported billable procedures. Discharge Plan Discharge Clinical Impression: Pneumonia, Accidental overdose Patient Disposition: Home, Self-Care Instructions: Pneumonia (ED), Adult Overdose (ED) Additional Instructions: Your chest CT showed evidence of a left lower lobe pneumonia. I believe you got this pneumonia secondary to having multiple unresponsive episodes as a result of giving your oxycodone at the same time as your valium in the morning. I recommend your SNF staff staggering these medications. Follow up with your primary care provider. Return to the emergency department immediately if your symptoms worsen or if you develop any dizziness, shortness of breath, difficulty breathing, chest pain, blurry vision, loss of vision, nausea, vomiting, abdominal pain, fever, chills, back pain, or any other complaints. Prescriptions: New doxycycline hyclate 100 mg tablet 100 mg PO BID 7 Days Qty: 14 0RF amoxicillin-pot clavulanate 875-125 mg tablet 1 tab PO BID 7 Days Qty: 14 0RF No Action multivitamin Tablet 1 tab PO DAILY acetaminophen 325 mg Tablet 650 mg PO Q6H PRN (Reason: Fever) albuterol sulfate 2.5 mg /3 mL (0.083 %) solution for nebulization 3 ml inhalation Q12H PRN (Reason: Shortness Of Breath) atorvastatin 10 mg tablet 1 tab PO DAILY sennosides-docusate sodium [DOK Plus] 8.6-50 mg Tablet 2 tab-cap PO BID gabapentin 400 mg capsule 2 cap PO TID thiamine HCl (vitamin B1) 100 mg Tablet 100 mg PO DAILY quetiapine 100 mg tablet 1 tab PO BEDTIME amitriptyline 10 mg tablet 2 tab PO BEDTIME diazepam 2 mg tablet 0.5 tab PO BID PRN (Reason: Anxiety) bisacodyl 10 mg Suppository 10 mg UT DAILY PRN (Reason: Constipation) folic acid 1 mg Tablet 1 mg PO DAILY lorazepam 1 mg tablet 1 tab PO BID PRN (Reason: Anxiety) polyethylene glycol 3350 [Miralax] 17 gram/dose Powder 17 g PO BID oxycodone 5 mg tablet 1 tab PO BID PRN (Reason: Pain) chlorhexidine gluconate 0.12 % mouthwash 15 ml PO MOWEFR quetiapine 50 mg tablet 1 tab PO BEDTIME cholecalciferol (vitamin D3) 50 mcg (2,000 unit) Tablet 50 mcg PO DAILY baclofen 5 mg tablet 1 tab PO TID azithromycin 250 mg tablet 250 mg PO DAILY 4 Days Qty: 4 0RF Rx Instructions: start on day 2 of therapy naloxone [Narcan] 4 mg/actuation spray,non-aerosol 4 mg intranasal Q2M PRN Rx Instructions: spray 1 dose into ONE nostril; alternate nostrils w each dose until help arrives montelukast 10 mg tablet 10 mg PO DAILY diazepam [Valium] 2 mg tablet 2 mg PO BID PRN mirtazapine 7.5 mg tablet 7.5 mg PO BEDTIME albuterol sulfate 90 mcg/actuation HFA aerosol inhaler 2 puff inhalation Q6H PRN Referrals: [facility] [place]] (Call to establish and follow up with a primary care provider. If you already have a primary care provider, please follow up with them.) [facility] [[facility] Group] [facility] [Provider Group] Interventions: ED Discharge Assessment Last Done: 10/09/23 21:21 Discharge Date/Time: 10/09/23 21:23 Print Language: Estonian
--- NOTE | 2023-10-09 11:23 | ECG_ITS ---
Test Reason : WEAKNESS Blood Pressure : / mmHG Vent. Rate : 091 BPM Atrial Rate : 091 BPM P-R Int : 148 ms QRS Dur : 078 ms QT Int : 364 ms P-R-T Axes : 050 055 068 degrees QTc Int : 447 ms Normal sinus rhythm Normal ECG When compared with ECG of 29-MAR-2023 13:03, No significant change was found Referred By: Shilpa Arellano Electronically Signed By:MO ATKINSON
[2023-10-09 11:55] LABS: MANUAL DIFF FLAG NO
[2023-10-09 11:58] LABS: Basophils Percent Auto 0.3 % (0-2); Eosinophils Absolute Auto 0.1 X10*3/uL (0.0-0.4); Eosinophils Percent Auto 0.6 % (0-4); Hematocrit 37.5 % (37.0-47.0); Hemoglobin 12.5 g/dl (12.0-16.0); Imm Gran Abs Auto 0.04 X10*3/uL (0.00-0.03); Imm Gran Pct Auto 0.4 % (0.0-0.4); Lymphocytes Absolute Auto 0.9 X10*3/uL (1.2-4.9); Lymphocytes Percent Auto 8.7 % (20-40); Mean Corpuscular HGB Conc 33.3 g/dl (31.0-35.0); Mean Corpuscular Hemoglobin 29.6 pg (27.0-33.0); Mean Corpuscular Volume 88.9 fL (80.0-98.0); Mean Platelet Volume 9.4 fL (9.4-12.3); Monocytes Absolute Auto 0.4 X10*3/uL (0.1-1.2); Monocytes Percent Auto 4.1 % (2-11); Neutrophils Absolute Auto 9.3 x10*3/uL (2.0-8.3); Neutrophils Percent Auto 85.9 % (45-73); Platelet Count 260 X10*3/uL (160-400); Red Blood Count 4.22 X10*6/uL (4.20-5.50); Red Cell Distribution Width 13.2 % (11.0-16.0); White Blood Count 10.8 X10*3/uL (4.8-10.8)
[2023-10-09 12:00] VITALS: BP 143/86; PULSE 84; RESP 16; O2SAT 95
[2023-10-09 12:17] LABS: Alanine Aminotransferase 19 U/L (0-31); Alkaline Phosphatase 72 U/L (39-117); Anion Gap 10 (12-20); Aspartate Amino Transferase 16 U/L (5-31); Blood Urea Nitrogen 11 mg/dL (9-16); Calcium 9.6 mg/dL (8.4-10.2); Carbon Dioxide 26 mmol/L (22-29); Chloride 109 mmol/L (96-108); Creatinine Clr Calc Pharmacy 91.1; Estimated Glomerular Filt Rate > 60; Glucose Random 88 mg/dL (60-115); HCG Quantitative < 2 mIU/mL; Magnesium 1.9 mg/dL (1.6-2.6); Potassium 3.7 mmol/L (3.3-5.1); Sodium 141 mmol/L (135-145); Total Protein 7.2 g/dL (6.5-8.0); Troponin-I High Sensitivity < 2.7 ng/L (<3.5-17.0)
[2023-10-09 12:25] LABS: Appearance Urine Clear; Color Urine Yellow; Glucose Urine UA Negative (Negative); Leukocyte Esterase Urine Negative (Negative); Nitrite Urine Negative (Negative); PH 7.5 (5.0-9.0); Urine Blood Negative (Negative); Urine Ketones Negative (Negative); Urine Protein Negative (Neg-Trace)
[2023-10-09 12:38] LABS: Amphetamine Screen Urine Not Detected (Not Detect); Barbiturates, Urine Not Detected (Not Detect); Benzodiazepines Screen Urine POSITIVE (Not Detect); Buprenorphine Scr Not Detected (Not Detect); Cannabinoid Screen Urine Not Detected (Not Detect); Cocaine Screen Urine Not Detected (Not Detect); Fentanyl, urine Not Detected (Not Detect); Methadone Screen, Urine Not Detected (Not Detect); Opiate Screen Urine Not Detected (Not Detect); Oxycodone Screen Urine Positive (Not Detect); Phencyclidine Screen Urine Not Detected (Not Detect)
[2023-10-09 12:47] LABS: Influenza A PCR NEGATIVE (Negative); Influenza B PCR NEGATIVE (Negative); Resp Syncy Virus RNA Qual PCR NEGATIVE (Negative); SARS COV2 PCR INHOUSE NEGATIVE (Negative)
[2023-10-09] MEDS: Morphine Sulfate 2 MG/ML CARTRIDGE IVPUSH ×2 (14:20→18:17)
[2023-10-09] MEDS: ondansetron HCL 4 MG/2 ML VIAL IVPUSH (14:21)
[2023-10-09 14:24] VITALS: BP 178/110; PULSE 89; RESP 18
[2023-10-09] MEDS: iohexoL 350 MG/ML 100 ML INFUS..BTL IV (16:22)
[2023-10-09 16:36] VITALS: BP 142/80; PULSE 78; RESP 14; O2SAT 98
[2023-10-09 18:17] VITALS: RESP 15
[2023-10-09 20:16] LABS: Lactic Acid 1.2 mmol/L (0.5-2.0)
[2023-10-09] MEDS: cefTRIAXone sodium 1 GM in 0.9 % Sodium Chloride 50 ML IV (20:25)
[2023-10-09] MEDS: Mirtazapine 15 MG TABLET PO (20:25)
[2023-10-09] MEDS: diazePAM 2 MG TABLET PO (20:25)
[2023-10-09] MEDS: Montelukast Sodium 10 MG TABLET PO (20:25)
[2023-10-09] MEDS: Baclofen 10 MG TABLET 5 MG PO (20:25)
[2023-10-09] MEDS: QUEtiapine Fumarate 100 MG TABLET PO (20:26)
--- NOTE | 2023-10-09 20:55 | PC.NURSE ---
Spoke to Naveed at [facility] gave RN to RN report, all questions answered, stressed reccommendation of staggering valium and oxy in AM dose. [facility] to return [facility].
[2023-10-09] MEDS: Amitriptyline HCl 10 MG TABLET PO (21:02)
[2023-10-09 21:21] VITALS: BP 154/95; PULSE 79; RESP 18; TEMP 36.7; O2SAT 100
== END 2023-10-09 21:23 | disposition home or self-care (01) ==
PROVIDERS: Physician Assistant Medical; Emergency Provider Emergency Medicine
DX: J18.9 Pneumonia, unspecified organism (principal); T42.4X1A Poisoning by benzodiazepines, accidental (unintentional), initial encounter; T40.2X1A Poisoning by other opioids, accidental (unintentional), initial encounter; R40.4 Transient alteration of awareness; F14.10 Cocaine abuse, uncomplicated; Y92.9 Unspecified place or not applicable; F32.A Depression, unspecified; Z87.820 Personal history of traumatic brain injury; E78.00 Pure hypercholesterolemia, unspecified; J45.909 Unspecified asthma, uncomplicated; Z79.899 Other long term (current) drug therapy; Z79.02 Long term (current) use of antithrombotics/antiplatelets; F17.210 Nicotine dependence, cigarettes, uncomplicated; Z03.818 Encounter for observation for suspected exposure to other biological agents ruled out
CPT/HCPCS: 0241U; 36415; 70450; 71045; 71260; 80053; 80307; 81003; 83605; 83735; 84484; 84702; 85025; 87040; 93005; 96365; 96375; 96376; 99285; J0696; J2270; J2405; Q9967

== ENCOUNTER → 2023-10-09 11:23 | Outpatient (BNV) | payer MEDICAID, SELFPAY | PROVIDERS: Emergency Provider Emergency Medicine; Visit Provider Internal Medicine | DX: R53.1 Weakness (principal) | CPT/HCPCS: 93010 ==

== ENCOUNTER 2023-12-25 13:23 | Outpatient (AMB) | payer MEDICAID, SELFPAY ==
[2023-12-25 13:36] VITALS: BP 130/70; PULSE 82; O2SAT 100
--- NOTE | 2023-12-25 13:36 | A.OFFVIS_ITS ---
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: No Allergies diphenhydramine [From Benadryl] Allergy (Unknown, Verified 12/25/23 13:49) Unknown NSAIDS (Non-Steroidal Anti-Inflamma Allergy (Verified 12/25/23 13:49) Unknown Medication List - Last Reconciled 12/25/23 by Vonnie Ackerman MD acetaminophen 650 mg PO Q6H PRN albuterol sulfate 3 mL inhalation Q12H PRN albuterol sulfate 90 mcg/actuation 2 puffs inhalation Q6H PRN amitriptyline 2 tabs PO BEDTIME atorvastatin 1 tab PO DAILY azithromycin 250 mg PO DAILY 4 days baclofen 1 tab PO TID bisacodyl 10 mg NV DAILY PRN chlorhexidine gluconate 0.12% 15 mL PO MOWEFR cholecalciferol (vitamin D3) 50 mcg PO DAILY diazepam 0.5 tabs PO BID PRN diazepam (Valium) 2 mg PO BID PRN folic acid 1 mg PO DAILY gabapentin 2 caps PO TID lorazepam 1 tab PO BID PRN mirtazapine 7.5 mg PO BEDTIME montelukast 10 mg PO DAILY multivitamin 1 tab PO DAILY naloxone 4 mg/actuation (Narcan) 4 mg intranasal Q2M PRN oxycodone 1 tab PO BID PRN polyethylene glycol 3350 (Miralax) 17 grams PO BID quetiapine 1 tab PO BEDTIME quetiapine 1 tab PO BEDTIME sennosides-docusate sodium 8.6-50 mg 2 tab-caps PO BID thiamine HCl (vitamin B1) 100 mg PO DAILY Do you need a note to return to daycare/school/sports/work: No HPI HPI wheezing: Details: MICHELLE IS 42 YEARS OLD FEMALE, A CASE OF POST TRAUMATIC BRAIN INJURY, SHE HAS HAD SPASTIC PARALYSIS OF THE EXTREMITIES, AND ALSO DYSPHAGIA, WITH INCIDENCES OF ASPIRATION BRONCHITIS/PNEUMONITIS. SHE IS RESIDENT OF [facility]. SHE HAS GRADUALLY IMPROVED TO THE POINT THAT NOW SWALLOWS OKAY, AND SHE CAN COMMUNICATE FAIRLY WELL. SHE REMAINS IN THE WHEELCHAIR MOST OF THE TIME BUT AT THE FACILITY HAS STARTED WALKING WITH SOME ASSISTANCE. SHE SMOKES 3 CIGARETTES A DAY. SHE HAS ONLY OCCASIONAL BOUTS OF COUGH AND WHEEZING, AND USES PROAIR HFA ONLY P.R.N.. IN THE PAST SHE HAS USED OXYGEN OFF AND ON BUT NOT IN THE LAST 2-3 MONTHS. SHE IS REMAINING QUITE STABLE. OFFERS NO NEW OR SIGNIFICANT COMPLAINTS TODAY. [facility] Medical History Allergy status to other drugs, medicaments and biological substances Allergy status to analgesic agent Nausea Retention of urine, unspecified Presence of other vascular implants and grafts Contracture, right hand Constipation, unspecified Insomnia, unspecified Opioid use, unspecified, uncomplicated Cocaine abuse Primary osteoarthritis, right shoulder Pure hypercholesterolemia, unspecified Epidural hemorrhage without loss of consciousness Vitamin D deficiency, unspecified Anxiety Smoker Asthma Dysphagia Dysarthria Right spastic hemiparesis TBI (traumatic brain injury) Social History Housing: [facility] Alcohol intake: former Patient Tobacco Use Status: Current everyday Tobacco user Cigarette Packs Per Day: 3 Advance Directives Date on File: 08/08/22 Review of Systems Const All systems reviewed & are unremarkable except as noted in HPI and below Eyes Reports no additional complaints ENT Reports dysphagia (Mild, off and on) Card Reports no additional complaints Resp Reports cough and Denies wheezing GI Reports no additional complaints and Reports dysphagia (Mild, off and on) Reports no additional complaints Musc Reports abnormal gait (Non ambulatory patient remains in chair) Skin/Breast Reports system reviewed and no additional complaints, except as documented Neuro Reports abnormal gait (Non ambulatory patient remains in chair) and Reports other (Spastic right hemiplegia, with flexion contractures of the right hand.) Psych Reports anxiety and Reports mood swings Endo Reports no additional complaints Aller/Immun Reports no additional complaints and Denies wheezing Physical Exam Vital Signs: Last Vital Signs Pulse 82 12/25/23 13:36 BP 130/70 12/25/23 13:36 Pulse Ox 100 12/25/23 13:36 Oxygen Delivery Method Room Air 12/25/23 13:36 Const General: comfortable, no acute distress, alert and awake Orientation/consciousness: patient oriented x3 and Other orientation findings (She has moderate dysarthria, speech difficult to understand.) HEENT Head: Yes normal to inspection General nose exam: No nasal polyps present and No nasal discharge present Face and sinus: Yes sinuses nontender Mouth: oropharynx normal Teeth and gingiva: other (Poor dental hygiene) Throat: Yes posterior oropharynx normal Eyes General: appearance normal, both eyes and all related structures Neck Neck: Yes normal visual inspection, Yes no lymphadenopathy, Yes trachea midline and Yes no JVD Thyroid: Thyroid normal Chest Chest palpation & inspection: normal inspection of the chest, normal palpation of entire chest wall and no tenderness Resp Other: Percussion note resonant, she has good and equal breath sounds on both sides, I did not hear any wheezes or Creps. Cardio Palpation: normal PMI Rate: regular rate Rhythm: regular rhythm Heart sounds: no gallops and no murmurs GI Palpation (GI): Soft to palpation, nontender, No hepatosplenomegaly present and no masses Auscultation: normal bowel sounds Back/Spine/Pelvis Thoracic/Lumbar Spine: thoracic and lumbar spine normal to inspection and thoraco-lumbar ROM limited Skin General skin exam: no rashes or lesions noted Neuro Other: Speech is dysarthricbut improved from before . Patient has spastic paralysis of the upper and lower extremities. General: patient oriented x3 and no focal motor deficits Cranial nerves: Yes CN's II-XII intact bilaterally Extrem General: Yes normal to inspection, Yes no clubbing, cyanosis or edema and Yes no calf tenderness Psych Appearance: grossly normal Assessment & Plan Assessment & Plan (1) TBI (traumatic brain injury): Comment: CASE OF POST TRAUMATIC BRAIN INJURY, Code(s): S06.9X9A - Unspecified intracranial injury with loss of consciousness of unspecified duration, initial encounter Category: Medical Plan: SHE IS RESIDENT OF [facility] (2) Right spastic hemiparesis: Comment: This is from old traumatic brain injury, now at a standstill. she remains mostly in, the wheelchair when coming outdoors . at the facility has started walking with walker. Code(s): G81.11 - Spastic hemiplegia affecting right dominant side Category: Medical Plan: No further advice (3) Dysphagia: Comment: She does have chronic dysphagia related to her traumatic brain injury, It is gradually improving, but still getting frequent episodes of difficulty in swallowing SHE REMAINS AT RISK OF PULMONARY ASPIRATIONS, Code(s): R13.10 - Dysphagia, unspecified Category: Medical Plan: Aspiration precautions should be continued (4) Asthma: Comment: She probably does have mild bronchial asthma as ASTHMA VARIANT COUGH , also contributed by micro aspirations Code(s): J45.909 - Unspecified asthma, uncomplicated Category: Medical Plan: Use albuterol HFA 2 puffs Q 6 hours p.r.n.. Alternatively she can use albuterol solution in the nebulizer Q 6 hours p.r.n.. (5) Smoker: Comment: Patient is ongoing smoker, would not be able to quit completely, due to her emotional issues. I counseled her to reduce it to only a few cigarettes per day. Code(s): F17.200 - Nicotine dependence, unspecified, uncomplicated Category: Social Hx Plan: The number of cigarettes per day is reduced to 3 and she is content with that. Coding Level of Care Code Est Pt Level 3 (64666) Diagnoses TBI (traumatic brain injury) S06.9X9A Right spastic hemiparesis G81.11 Dysphagia R13.10 Asthma J45.909 Smoker F17.200
== END 2023-12-25 13:49 | disposition home or self-care (01) ==
PROVIDERS: PCP Hospitalist; Visit Provider Internal Medicine
DX: S06.9X9A Unspecified intracranial injury with loss of consciousness of unspecified duration, initial encounter (principal); G81.11 Spastic hemiplegia affecting right dominant side; R13.10 Dysphagia, unspecified; J45.909 Unspecified asthma, uncomplicated; F17.200 Nicotine dependence, unspecified, uncomplicated
CPT/HCPCS: 99213

== ENCOUNTER → 2023-12-25 13:23 | Outpatient (BNVA) | payer MEDICAID, SELFPAY | PROVIDERS: PCP Hospitalist; Visit Provider Internal Medicine | DX: G81.11 Spastic hemiplegia affecting right dominant side (principal); R13.10 Dysphagia, unspecified; J45.909 Unspecified asthma, uncomplicated; F17.210 Nicotine dependence, cigarettes, uncomplicated | CPT/HCPCS: 99212 ==

== ENCOUNTER 2024-01-24 13:38 | Outpatient (REF) | payer MEDICAID, SELFPAY ==
--- NOTE | ~2024-01-24 | MM_ITS ---
EXAMINATION: MM SCREENING DIGITAL BREAST TOMOSYNTHESIS, BILATERAL CLINICAL INFORMATION: Screening. Asymptomatic. COMPARISON: Mammography: Comparison is made with available priors TECHNIQUE: Digital breast mammography with tomosynthesis is performed in both the craniocaudal and mediolateral oblique views along with computer-aided detection (CAD). FINDINGS: There are scattered areas of fibroglandular density (ACR BI-RADS breast composition Category b). Left: Asymmetry superior breast middle depth on MLO view. No suspicious calcifications or other abnormal findings Right: Asymmetry lateral breast anterior depth on CC view. No suspicious calcifications or other abnormal findings. MM/MM tomosynthesis screening BI IMPRESSION: Additional imaging is recommended ASSESSMENT: BI-RADS BI-RADS 0 - Incomplete: Needs additional Imaging. RECOMMENDATION: 1. Additional views of the bilateral breasts 2. Targeted ultrasound if warranted after review of the additional views. 3. Radiology department staff will contact the patient for additional imaging. Additional Imaging required This examination should not preclude the clinical evaluation of a suspicious palpable abnormality. This patient's information was entered into a reminder system with a target due date for their next mammogram. Electronically signed by: Ly Lee DO 02/05/2024 05:15 PM EDT
== END 2024-01-24 13:39 | disposition home or self-care (01) ==
LOC: HO.MAMMO 13:38
PROVIDERS: PCP Hospitalist; Visit Provider Hospitalist
DX: Z12.31 Encounter for screening mammogram for malignant neoplasm of breast (principal)
CPT/HCPCS: 77063; 77067

== ENCOUNTER → 2024-01-24 14:00 | Outpatient (BNV) | payer MEDICAID, SELFPAY | PROVIDERS: PCP Hospitalist; Visit Provider Internal Medicine | DX: Z12.31 Encounter for screening mammogram for malignant neoplasm of breast (principal) | CPT/HCPCS: 77063; 77067 ==

== ENCOUNTER 2024-04-11 12:58 | Outpatient (REF) | payer MEDICAID, SELFPAY ==
--- NOTE | ~2024-04-11 | MM_ITS ---
EXAMINATION: MM DIAGNOSTIC DIGITAL BREAST TOMOSYNTHESIS, BILATERAL Bilateral Limited ultrasound. CLINICAL INFORMATION: Callback from screening for bilateral asymmetries. COMPARISON: Mammography: Comparison is made with relevant prior exams. TECHNIQUE: Digital breast mammography with tomosynthesis is performed in both the craniocaudal and mediolateral oblique views along with computer-aided detection (CAD). Bilateral Limited ultrasound. FINDINGS: The breasts are heterogeneously dense, which may obscure small masses (ACR BI-RADS breast composition Category c). Left: Asymmetry in the superior left breast on MLO view. Persistent additional imaging projections. No suspicious calcifications or other abnormal findings. Targeted color Doppler ultrasound scanning in the left breast from 12- 5:00 was performed. There is an incidental solid mass versus complicated cyst at 2:00 5 cm from nipple measuring 5 x 5 x 3 mm. There is no internal vascular flow. Otherwise there is normal fibroglandular breast tissue scanning in the superior breast and lateral breast. Right: Asymmetry in the lateral right breast anterior depth on CC view partially effaces on additional imaging projections. No suspicious calcifications or other abnormal findings. Targeted color Doppler ultrasound scanning in the right breast lateral breast from 7-11 o'clock demonstrates normal fibroglandular breast tissue. There is a simple cyst at 11:00 2 cm from nipple measuring 9 x 6 x 5 mm with adjacent minimally corticated cyst this correlates with the asymmetry seen on mammography and is benign. Results are discussed with the patient at time of visit. MM/MM tomosynthesis added view BI IMPRESSION: Left: Solid mass versus complicated cyst at 2:00 on ultrasound. Recommend 6 month follow-up left breast ultrasound for further evaluation of stability. Right: Benign. ASSESSMENT: BI-RADS BI-RADS 2 - Benign Findings RECOMMENDATION: 6 Month F/U This patient's information was entered into a reminder system with a target due date for their next mammogram. Electronically signed by: Ly Lee DO 04/11/2024 02:19 PM LEROY SALAZAR
== END 2024-04-11 12:59 | disposition home or self-care (01) ==
LOC: HO.MAMMO 12:58
PROVIDERS: PCP Hospitalist; Visit Provider Hospitalist
DX: Z12.31 Encounter for screening mammogram for malignant neoplasm of breast (principal); R92.8 Other abnormal and inconclusive findings on diagnostic imaging of breast
CPT/HCPCS: 76642; 77062; 77066

== ENCOUNTER → 2024-04-11 13:00 | Outpatient (BNV) | payer MEDICAID, SELFPAY | PROVIDERS: PCP Hospitalist; Visit Provider Internal Medicine | DX: N60.01 Solitary cyst of right breast (principal); N60.12 Diffuse cystic mastopathy of left breast; R92.333 Mammographic heterogeneous density, bilateral breasts | CPT/HCPCS: 76642; 77062; 77066 ==

== ENCOUNTER 2024-06-19 10:13 | Outpatient (AMB) | payer MEDICAID, SELFPAY ==
[2024-06-19 10:36] VITALS: BP 122/70; PULSE 92; O2SAT 99
--- NOTE | 2024-06-19 10:36 | MHC.OFFVIS ---
Vital Signs 06/19/24 10:36 Height 5 ft 4 in BP 122/70 Blood Pressure Location Lt brachial Position Sitting Pulse 92 Pulse Source Pulse Oximeter Pulse Oximetry (%) 99 Oxygen Delivery Method Room Air Intake Visit Reasons: wheezing Intake Note: pt is here for follow up and stated she is feeling good, and is moving back to home. 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: No Allergies diphenhydramine [From Benadryl] Allergy (Unknown, Verified 06/19/24 10:58) Unknown NSAIDS (Non-Steroidal Anti-Inflamma Allergy (Verified 06/19/24 10:58) Unknown Medication List - Last Reconciled 06/19/24 by Vonnie Ackerman MD acetaminophen 650 mg PO Q6H PRN albuterol sulfate 3 mL inhalation Q12H PRN albuterol sulfate 90 mcg/actuation 2 puffs inhalation Q6H PRN amitriptyline 2 tabs PO BEDTIME atorvastatin 1 tab PO DAILY baclofen 1 tab PO TID bisacodyl 10 mg CO DAILY PRN chlorhexidine gluconate 0.12% 15 mL PO MOWEFR cholecalciferol (vitamin D3) 50 mcg PO DAILY diazepam 0.5 tabs PO BID PRN diazepam (Valium) 2 mg PO BID PRN folic acid 1 mg PO DAILY gabapentin 2 caps PO TID lorazepam 1 tab PO BID PRN mirtazapine 7.5 mg PO BEDTIME montelukast 10 mg PO DAILY multivitamin 1 tab PO DAILY naloxone 4 mg/actuation (Narcan) 4 mg intranasal Q2M PRN oxycodone 1 tab PO BID PRN polyethylene glycol 3350 (Miralax) 17 grams PO BID quetiapine 1 tab PO BEDTIME quetiapine 1 tab PO BEDTIME sennosides-docusate sodium 8.6-50 mg 2 tab-caps PO BID thiamine HCl (vitamin B1) 100 mg PO DAILY Do you need a note to return to daycare/school/sports/work: No HPI HPI wheezing: Details: MICHELLE IS 43 YEARS OLD FEMALE, A CASE OF POST TRAUMATIC BRAIN INJURY, SHE HAS HAD SPASTIC PARALYSIS OF THE EXTREMITIES, AND ALSO DYSPHAGIA, WITH INCIDENCES OF ASPIRATION BRONCHITIS/PNEUMONITIS. SHE IS RESIDENT OF [facility]. SHE HAS GRADUALLY IMPROVED TO THE POINT THAT NOW SWALLOWS OKAY, AND SHE CAN COMMUNICATE FAIRLY WELL. SHE REMAINS IN THE WHEELCHAIR MOST OF THE TIME BUT AT THE FACILITY. HAS STARTED WALKING WITH SOME ASSISTANCE. SHE SMOKES 3 CIGARETTES A DAY. SHE HAS ONLY OCCASIONAL BOUTS OF COUGH AND WHEEZING, AND USES PROAIR HFA OR ALBUTEROL SOLUTION IN THE NEBULIZER Q 4 HOURS ONLY P.R.N.. SHE DOES NOT USE OXYGEN ANYMORE. SHE IS REMAINING QUITE STABLE. SHE IS LOOKING FORWARD AND IS EXCITED ABOUT LEAVING THE LONG-TERM FACILITY AND GOING TO LIVE INDEPENDENTLY BACK IN [place]. [facility] Medical History Allergy status to other drugs, medicaments and biological substances Allergy status to analgesic agent Nausea Retention of urine, unspecified Presence of other vascular implants and grafts Contracture, right hand Constipation, unspecified Insomnia, unspecified Opioid use, unspecified, uncomplicated Cocaine abuse Primary osteoarthritis, right shoulder Pure hypercholesterolemia, unspecified Epidural hemorrhage without loss of consciousness Vitamin D deficiency, unspecified Anxiety Smoker Asthma Dysphagia Dysarthria Right spastic hemiparesis TBI (traumatic brain injury) Social History Housing: Intermediate Alcohol intake: former Patient Tobacco Use Status: Current everyday Tobacco user Cigarette Packs Per Day: 3 Advance Directives Date on File: 08/08/22 Review of Systems Const All systems reviewed & are unremarkable except as noted in HPI and below Eyes Reports no additional complaints ENT Reports dysphagia (Mild, off and on) Card Reports no additional complaints Resp Reports cough and Denies wheezing GI Reports no additional complaints and Reports dysphagia (Mild, off and on) Reports no additional complaints Musc Reports abnormal gait (Non ambulatory patient remains in chair) Skin/Breast Reports system reviewed and no additional complaints, except as documented Neuro Reports abnormal gait (Non ambulatory patient remains in chair) and Reports other (Spastic right hemiplegia, with flexion contractures of the right hand.) Psych Reports anxiety and Reports mood swings Endo Reports no additional complaints Aller/Immun Reports no additional complaints and Denies wheezing Physical Exam Vital Signs: Last Vital Signs Pulse 92 06/19/24 10:36 BP 122/70 06/19/24 10:36 Pulse Ox 99 06/19/24 10:36 Oxygen Delivery Method Room Air 06/19/24 10:36 Const General: comfortable, no acute distress, alert and awake Orientation/consciousness: patient oriented x3 and Other orientation findings (She has moderate dysarthria, speech difficult to understand.) HEENT Head: Yes normal to inspection General nose exam: No nasal polyps present and No nasal discharge present Face and sinus: Yes sinuses nontender Mouth: oropharynx normal Teeth and gingiva: other (Poor dental hygiene) Throat: Yes posterior oropharynx normal Eyes General: appearance normal, both eyes and all related structures Neck Neck: Yes normal visual inspection, Yes no lymphadenopathy, Yes trachea midline and Yes no JVD Thyroid: Thyroid normal Chest Chest palpation & inspection: normal inspection of the chest, normal palpation of entire chest wall and no tenderness Resp Other: Percussion note resonant, she has good and equal breath sounds on both sides, I did not hear any wheezes or Creps. Cardio Palpation: normal PMI Rate: regular rate Rhythm: regular rhythm Heart sounds: no gallops and no murmurs GI Palpation (GI): Soft to palpation, nontender, No hepatosplenomegaly present and no masses Auscultation: normal bowel sounds Back/Spine/Pelvis Thoracic/Lumbar Spine: thoracic and lumbar spine normal to inspection and thoraco-lumbar ROM limited Skin General skin exam: no rashes or lesions noted Neuro Other: Speech is dysarthricbut improved from before . Patient has spastic paralysis of the upper and lower extremities. General: patient oriented x3 and no focal motor deficits Cranial nerves: Yes CN's II-XII intact bilaterally Extrem General: Yes normal to inspection, Yes no clubbing, cyanosis or edema and Yes no calf tenderness Psych Appearance: grossly normal Office Procedures Spirometry Testing Spirometry Comments: In office spirometry completed to the best of patient's ability with results to Dr Ackerman. 08193- Spirometry Results Reviewed Results Reviewed: SPIROMETRY . She had difficulty in performing the breathing effort. And the numbers are quite low partly due to poor effort. Secondary to muscular discoordination. Assessment & Plan Assessment & Plan (1) Asthma: Comment: She probably does have mild bronchial asthma as ASTHMA VARIANT COUGH , also contributed by micro aspirations. At present she is quite improved, denies having any acute attacks of cough or wheezing. Code(s): J45.909 - Unspecified asthma, uncomplicated Category: Medical Plan: Continue to use montelukast 10 mg daily Use albuterol solution in the nebulizer Q 4-6 hours p.r.n. for any acute attacks (2) Smoker: Comment: Patient is ongoing smoker, would not be able to quit completely, due to her emotional issues. I counseled her to reduce it to only a few cigarettes per day. Code(s): F17.200 - Nicotine dependence, unspecified, uncomplicated Category: Social Hx Plan: Advise that she should not exceed smoking 3 cigarettes per day, with the goal to quit completely. (3) Dysarthria: Comment: As a result of traumatic brain injury, she has had spasmodic paralysis of the Herbert pharyngeal muscle. Has gradually improved and now she can speak slowly. But still was not able to perform the expiratory efforts for spirometry. Code(s): R47.1 - Dysarthria and anarthria Category: Medical Plan: She is encouraged to continue doing exercises as prescribed by the speech therapy . (4) Right spastic hemiparesis: Comment: This is from old traumatic brain injury, now at a standstill. she remains mostly in, the wheelchair when coming outdoors . at the facility has started walking with walker. Code(s): G81.11 - Spastic hemiplegia affecting right dominant side Category: Medical Plan: Continue physical therapy and exercises (5) TBI (traumatic brain injury): Comment: CASE OF POST TRAUMATIC BRAIN INJURY, Code(s): S06.9X9A - Unspecified intracranial injury with loss of consciousness of unspecified duration, initial encounter Category: Medical Plan: Patient has improved greatly, but still has spasmodic weakness of the Herbert pharyngeal muscles, and still has partial hemiparesis of the right lower extremity. Plan Continue daily physical therapy and exercises. * patient has improved over the last 3 years to the extent that she can now, , speak understandably she can eat well without risk of aspiration. She can walk in the apartment with a walker. She is being discharged in the near future to live independently and she will be moving to her hometown in [place]. Orders: Orders AMB Spirometry Testing Today J45.909 - Unspecified asthma, uncomplicated Coding Level of Care Code Est Pt Level 3 (12168) Diagnoses Asthma J45.909 Smoker F17.200 Dysarthria R47.1 Right spastic hemiparesis G81.11 TBI (traumatic brain injury) S06.9X9A CPT Codes Spirometry - CPT: 90754- Spirometry ([id number])
--- OUTSIDE RECORDS SUMMARY | 2024-06-19 10:44 | XMS_ITS | Clinical Summary ---
Author Organization [facility] ity Address [id number] [place] [id number] Care Team Providers Care Improvement Rn Name Role Phone Jose Antonio Maki MD Primary Care Provider [phone] Surgical History Surgery Date Site/Laterality Comments APPENDECTOMY PROCEDURE:APPENDECTOMY Medical History Medical History Date Comments Asthma DX:Asthma Anxiety DX:Anxiety Family History Medical History Relation Name Comments Diabetes Father Diabetes Mother Relation Name Status Comments Father Mother Social History Tobacco Use Types Packs/Day Years Used Date Smoking Tobacco: Every Day Smokeless Tobacco: Never Alcohol Use Standard Drinks/Week Comments No 0 (1 standard drink = 0.6 oz pur e alcohol) Comments Unknown Sex and Gender Information Value Date Recorded Sex Assigned at Not on file Legal Sex Female 2:10 PM EST Gender Identity Not on file Sexual Orientation Not on file Obstetrics History Plan of Treatment Health Maintenance Due Date Last Done Comments Breast Cancer Screening 1980 DTaP,Tdap,and Td Vaccines (1 - Tdap) 11/13/1999 Hepatitis B Vaccines (1 of 3 - 19+ 3-dose series) 11/13/1999 Pneumococcal Vaccine: Pediat rics (0 to 5 Years) and At-Risk Patients (6 to 64 Years) (1 of 2 - PCV) 11/13/1999 Cervical Cancer Screening: P ap Smear 2001 Depression Screening 03/30/2022 HIV Screening 03/30/2022 Hepatitis C Screening 03/30/2022 Social Influencers of Health Screening 03/30/2022 COVID-19 Vaccine ( - 2023-2 5 season) 2023 Influenza Vaccine (#1) 2023 HIB Vaccines Aged Out No longer eligi ble based on patient's age to complete this topic HPV Vaccines Aged Out No longer eligi ble based on patient's age to complete this topic Hepatitis A Vaccines Aged Out No long er eligible based on patient's age to complete this topic IPV Vaccines Aged Out No longer eligi ble based on patient's age to complete this topic MMR Vaccines Aged Out No longer eligi ble based on patient's age to complete this topic Meningococcal ACWY Vaccine Aged Out N o longer eligible based on patient's age to complete this topic Meningococcal B Vacine Aged Out No lo nger eligible based on patient's age to complete this topic RSV Immunization Patients Un len 20 months Aged Out No longer eligible b ased on patient's age to complete this topic Varicella Vaccines Aged Out No longer eligible based on patient's age to complete this topic Care Teams Improvement Rn Relationship Specialty Start Date End Date Jose Antonio Maki MD [address] [facility] [place] [id number] PCP - General Internal Medicine 04/26/18
== END 2024-06-19 11:41 | disposition home or self-care (01) ==
PROVIDERS: PCP Hospitalist; Visit Provider Internal Medicine
DX: J45.909 Unspecified asthma, uncomplicated (principal); F17.200 Nicotine dependence, unspecified, uncomplicated; R47.1 Dysarthria and anarthria; G81.11 Spastic hemiplegia affecting right dominant side; S06.9X9A Unspecified intracranial injury with loss of consciousness of unspecified duration, initial encounter
CPT/HCPCS: 94010; 99213

== ENCOUNTER → 2024-06-19 10:13 | Outpatient (BNVA) | payer MEDICAID, SELFPAY | PROVIDERS: PCP Hospitalist; Visit Provider Internal Medicine | DX: J45.909 Unspecified asthma, uncomplicated (principal); S06.9X9D Unspecified intracranial injury with loss of consciousness of unspecified duration, subsequent encounter; G81.11 Spastic hemiplegia affecting right dominant side; F17.210 Nicotine dependence, cigarettes, uncomplicated; R47.1 Dysarthria and anarthria | CPT/HCPCS: 94010; 99212 ==